=== PATIENT | female | born 1950 | race Caucasian/White ===

== ENCOUNTER 2016-11-22 | Outpatient (CLI) | payer MEDICARE, OTHER | END 2016-11-22 23:49 | disposition critical access hospital (66) | DX: R41.82 Altered mental status, unspecified (principal) | CPT/HCPCS: A0425; A0429 ==

== ENCOUNTER 2016-11-22 23:59 | Emergency (ER) | payer MEDICARE, OTHER | END 2016-11-23 07:01 | disposition home or self-care (01) | DX: R41.82 Altered mental status, unspecified (principal); D64.9 Anemia, unspecified; E83.119 Hemochromatosis, unspecified; R45.1 Restlessness and agitation; F41.9 Anxiety disorder, unspecified; I11.0 Hypertensive heart disease with heart failure; I50.9 Heart failure, unspecified; E11.9 Type 2 diabetes mellitus without complications; I69.351 Hemiplegia and hemiparesis following cerebral infarction affecting right dominant side; I69.392 Facial weakness following cerebral infarction; F17.200 Nicotine dependence, unspecified, uncomplicated; Z95.0 Presence of cardiac pacemaker; Z79.82 Long term (current) use of aspirin | CPT/HCPCS: 36415; 70450; 80048; 80306; 81003; 85025; 99284; G0480 ==

== ENCOUNTER 2017-03-25 17:28 | Outpatient (CLI) | payer MEDICARE, OTHER ==
--- NOTE | 2017-03-25 18:39 | XRAY Preliminary Report ---
Exam: XR Elbow 3 View RT IMPRESSION: 1. Posterior elbow soft tissue contusion. 2. Limited as above. No acute fractures are seen. [facility] The call report notification system was initiated by Dr. Reina Will at 18:31 hrs on 03/25/17. The above findings were discussed with provider Sherlyn Sims by Dr. Reina Will at 18:38 hrs on 03/25/17. SITE ID: [id number]
--- NOTE | 2017-03-25 18:42 | XRAY Report ---
EXAM: RIGHT ELBOW RADIOGRAPHY EXAM DATE: 03/25/2017 06:04 PM. CLINICAL HISTORY: Right ELBOW CONTUSION. Fall. Patient's arm does not extend out of fixed flexed position. COMPARISON: None. TECHNIQUE: 3 views. FINDINGS: Limited by nonstandard views due to fixed flexed position at the elbow. Bones: No acute fractures are seen. Joints: No evidence for dislocation or effusion. Soft Tissues: Posterior elbow soft tissue contusion. IMPRESSION: 1. Posterior elbow soft tissue contusion. 2. Limited as above. No acute fractures are seen. [facility] The call report notification system was initiated by Dr. Reina Will at 18:31 hrs on 03/25/17. The above findings were discussed with provider Sherlyn Sims by Dr. Reina Will at 18:38 hrs on 03/25/17. Referring Provider Line: [phone] SITE ID: [id number]
== END 2017-03-25 17:29 | disposition home or self-care (01) ==
LOC: DI 17:28
PROVIDERS: ATTEND Physician Assistant
DX: S50.01XA Contusion of right elbow, initial encounter (principal)

== ENCOUNTER 2017-04-11 08:00 | Outpatient (CLI) | payer MEDICARE, OTHER ==
[2017-04-11 15:10] LABS: HEMOGLOBIN A1C 0.63 g/dL
== END 2017-04-11 08:01 | disposition home or self-care (01) ==
LOC: LAB.R 08:00
PROVIDERS: ATTEND Family Medicine
DX: E83.110 Hereditary hemochromatosis (principal); E11.65 Type 2 diabetes mellitus with hyperglycemia; E03.9 Hypothyroidism, unspecified
CPT/HCPCS: 83036; 84443

== ENCOUNTER 2017-04-13 17:51 | Outpatient (CLI) | payer MEDICARE, OTHER ==
--- NOTE | 2017-04-13 19:44 | Ultrasound Preliminary Report ---
Exam: US Duplex Ext Veins Left IMPRESSION: No evidence for deep venous thrombosis. [facility] SITE ID: [id number]
--- NOTE | 2017-04-13 19:46 | Ultrasound Report ---
EXAM: LEFT LOWER EXTREMITY VENOUS ULTRASOUND EXAM DATE: 04/13/2017 07:23 PM. CLINICAL HISTORY: Lower extremity edema. Hereditary hemochromatosis. COMPARISON: None. TECHNIQUE: Real-time sonographic vascular imaging was performed by the geoscience laboratory technician through the lower extremity utilizing both color-flow and Doppler spectral analysis. Multiple aircraft sales representative static david ges were saved for review. FINDINGS: Common Femoral Vein (CFV): Normal. CFV-GSV Junction: Normal. Profunda Femoral Vein (PFV): Normal. Femoral Vein (FV) Prox: Normal. Femoral Vein (FV) Mid: Normal. Femoral Vein (FV) Dist: Normal. Popliteal Vein: Normal. Posterior Tibial Veins: Normal. Peroneal Veins: Normal. Other: None. IMPRESSION: No evidence for deep venous thrombosis. [facility] Referring Provider Line: [phone] SITE ID: [id number]
== END 2017-04-13 17:52 | disposition home or self-care (01) ==
LOC: DI 17:51
PROVIDERS: ATTEND Specialist
DX: E83.110 Hereditary hemochromatosis (principal); R60.0 Localized edema

== ENCOUNTER 2017-05-19 16:57 | Outpatient (CLI) | payer MEDICARE, OTHER | END 2017-05-19 16:58 | disposition critical access hospital (66) | LOC: EMS 16:57 | PROVIDERS: ATTEND Surgery | DX: T50.901A Poisoning by unspecified drugs, medicaments and biological substances, accidental (unintentional), initial encounter (principal) | CPT/HCPCS: A0425; A0429 ==

== ENCOUNTER 2017-05-19 17:10 | Inpatient (IN) | payer MEDICARE, OTHER ==
--- NOTE | 2017-05-19 17:29 | ED Physician Documentation ---
PD HPI DYSPNEA - Stated complaint Stated Complaint: poss OD - Chief complaint Chief Complaint: General - History obtained from History obtained from: Patient, EMS - History of Present Illness Timing - onset: How many days ago (several days of dyspnea, cough, and then today was with confusion about medications. EMS found her initial sats at 85%. She does not use oxygen at home.) Timing - onset during: Light activity Timing - duration: Days Timing - details: Gradual onset, Still present Inciting event(s): URI (cough and some congestion) Improved by: Rest, Sitting up Worsened by: Exertion, Coughing Associated symptoms: Fever (subjective), Cough, Wheezing, Bilateral edema (both legs, with redness of right lower leg anteriorly and right upper arm skin redness as well.). No: Chest pain / discomfort Similar symptoms before: Diagnosis (pneumonia, and has had leg cellulitis in the past.) Recently seen: Not recently seen Review of Systems Constitutional: reports: Fever (subjective for 2 days), Chills, Myalgias Nose: reports: Congestion. denies: Rhinorrhea / runny nose Throat: denies: Sore throat Cardiac: denies: Chest pain / pressure Respiratory: reports: Dyspnea, Cough, Wheezing GI: reports: Nausea. denies: Abdominal Pain, Vomiting, Diarrhea : denies: Dysuria, Frequency Skin: reports: Rash (redness with blisters right lower leg.) Musculoskeletal: denies: Neck pain, Back pain Neurologic: reports: Generalized weakness, Confused. denies: Focal weakness, Numbness, Near syncope, Headache, Head injury Endocrine: reports: Easy bruising / bleeding. denies: Weight gain Immunocompromised: denies: Immunocompromised PD PAST MEDICAL HISTORY - Past Medical History Cardiovascular: Congestive heart failure, Hypertension, Arrhythmia, Other Respiratory: None Neuro: CVA Endocrine/Autoimmune: Type 2 diabetes GI: GERD, Hiatal hernia : None HEENT: Chronic hearing loss Psych: Depression, Anxiety, Obsessive compulsive disorder Musculoskeletal: Other Derm: Eczema - Past Surgical History Past Surgical History: Yes General: Cholecystectomy, Appendectomy /STORE HAND: Hysterectomy, Oophrectomy Cardiovascular: Pacemaker - Present Medications Home Medications: Ambulatory Orders Medication Instructions Recorded Confirmed Ibuprofen [Motrin] 800 mg PO Q8H PRN 01/30/13 05/19/17 Levothyroxine Sodium [Synthroid] 75 mcg PO DAILY 01/30/13 05/19/17 Citalopram [CeleXA] 20 mg PO DAILY 10/30/14 05/19/17 Simvastatin [Zocor] 5 mg PO DAILY 10/30/14 05/19/17 oxyCODONE [Roxicodone] 20 mg PO Q4H 01/19/15 05/19/17 Lisinopril 10 mg PO DAILY 06/28/15 05/19/17 Baclofen 20 mg PO QID PRN 11/23/16 05/19/17 Furosemide [Lasix] 40 mg PO DAILY 11/23/16 05/19/17 Oxybutynin [Ditropan] 5 mg PO BID 11/23/16 05/19/17 Potassium Chloride [Klor-Con M20] 20 meq PO DAILY 11/23/16 05/19/17 Chlorpheniramine Maleate [Chlor 4 mg PO QID PRN 05/19/17 05/19/17 Hist] Dextroamphetamine/Amphetamine 30 mg ORAL BID 05/19/17 05/19/17 [Dextroamp-Amphetamin 30 mg Tab] Docusate Sodium 100 mg PO DAILY 05/19/17 05/19/17 diphenhydrAMINE [Benadryl] 25 mg PO QID PRN 05/19/17 05/19/17 - Allergies Allergies/Adverse Reactions: Allergies Allergy/AdvReac Type Severity Reaction Status Date / Time erythromycin lactobionate * Allergy Intermediate Emesis Verified 11/23/16 00:11 [From Erythrocin] imipramine HCl * Allergy Unknown bronchospas Verified 11/23/16 00:11 [From Tofranil] ms metformin Allergy Unknown emesis, Verified 11/23/16 00:11 dyspepsia nitrofurantoin Allergy Unknown nausea, Verified 11/23/16 00:11 [Nitrofurantoin] weakness, malaise Sulfa (Sulfonamide Allergy Unknown urticaria Verified 11/23/16 00:11 Antibiotics) - Social History Does the pt smoke?: No Smoking Status: Current some day smoker Does the pt drink ETOH?: No Does the pt have substance abuse?: No - Immunizations Immunizations are current?: Yes - POLST Patient has POLST: No PD ED PE NORMAL - Vitals Vital signs reviewed: Yes - General General: Alert and oriented X 3 (but some confused on what medications she is taking and feels that her meds are wrong, but pills in med pack correlate with what she should be on. ), No acute distress, Well developed/nourished - HEENT HEENT: Ears normal, Moist mucous membranes, Pharynx benign - Neck Neck: Supple, no meningeal sign, No adenopathy - Cardiac Cardiac: RRR, No murmur - Respiratory Respiratory: No: Clear bilaterally (coarse sounds left base, diffuse wheezes noted. Mild work of breathing. ) - Abdomen Abdomen: Soft, Non tender - Back Back: No CVA TTP - Derm Derm: Normal color, Warm and dry - Extremities Extremities: No deformity, Normal ROM s pain, No calf tenderness / cord, Other ( 1+ edema in legs, with redness right lower leg anteriorly and also some right upper arm without fluctuance. Swab obtained for culture. ) - Neuro Neuro: Alert and oriented X 3, No motor deficit, Normal speech Results - Vitals Vitals: Vital Signs - 24 hr 05/19/17 05/19/17 17:11 18:25 Temperature 37.1 C Heart Rate 93 97 Respiratory 16 16 Rate Blood Pressure 138/64 H O2 Saturation 97 Oxygen O2 Source [With Activity] Room air O2 Source Nasal cannula Oxygen Flow Rate 3 - Labs Labs: Laboratory Tests 05/19/17 05/19/17 05/19/17 18:30 18:30 18:30 WBC 12.8 H RBC 3.56 L Hgb 11.3 L Hct 33.2 L MCV 93.2 MCH 31.8 H MCHC 34.1 RDW 14.1 Plt Count 145 MPV 10.1 Neut # 9.7 H Lymph # 1.6 [place] # 1.4 H Eos # 0.0 Baso # 0.0 Absolute Nucleated RBC 0.02 Nucleated RBCs 0.2 Sodium 133 L Potassium 3.8 Chloride 95 L Carbon Dioxide 30 Anion Gap 8.0 BUN 16 Creatinine 0.8 Estimated GFR (MDRD) 72 L Glucose 217 H Glycated Hemoglobin Estim Average Glucose Lactic Acid Calcium 8.5 Magnesium 1.8 Total Bilirubin 0.9 AST 42 ALT 30 Alkaline Phosphatase 116 B-Natriuretic Peptide 87 Total Protein 6.4 L Albumin 3.1 L Globulin 3.3 Albumin/Globulin Ratio 0.9 L Lipase 17 L 05/19/17 05/19/17 18:30 18:30 WBC RBC Hgb Hct MCV MCH MCHC RDW Plt Count MPV Neut # Lymph # [place] # Eos # Baso # Absolute Nucleated RBC Nucleated RBCs Sodium Potassium Chloride Carbon Dioxide Anion Gap BUN Creatinine Estimated GFR (MDRD) Glucose Glycated Hemoglobin 6.6 H Estim Average Glucose 143 H Lactic Acid 1.9 Calcium Magnesium Total Bilirubin AST ALT Alkaline Phosphatase B-Natriuretic Peptide Total Protein Albumin Globulin Albumin/Globulin Ratio Lipase - Rads (name of study) chest Radiology: Prelim report reviewed (LLL infiltrate c/w pneumonia.) PD MEDICAL DECISION MAKING - ED course Complexity details: reviewed results, re-evaluated patient (improved breathing and sounds with neb treatment. Less confused seeming. ), considered differential , d/w patient Departure - Departure Disposition: [facility] DC/Xfer Clinical Impression: Hypoxia Dyspnea Qualifiers: Dyspnea type: shortness of breath Qualified Code(s): R06.02 - Shortness of breath Pneumonia Qualifiers: Pneumonia type: due to unspecified organism Laterality: left Lung location: lower lobe of lung Qualified Code(s): J18.1 - Lobar pneumonia, unspecified organism Cellulitis of leg Qualifiers: Laterality: right Qualified Code(s): L03.115 - Cellulitis of right lower limb Condition: Stable Record reviewed to determine appropriate education?: Yes Discharge Date/Time: 05/19/17 21:25
[2017-05-19] MEDS ORDERED: IPRATROPIUM/ALBUTEROL 3 ML NEB INH STA (18:12)
[2017-05-19] MEDS ORDERED: SODIUM CHLORIDE FLUSH 0.9% 10 ML SYRINGE IVP ONE ×3 (18:24→21:58)
[2017-05-19] MEDS ORDERED: IPRATROPIUM/ALBUTEROL 3 ML NEB INH ONE (18:25)
[2017-05-19 18:50] LABS: BASOPHILS % (AUTO) 0.4 %; EOSINOPHILS % (AUTO) 0.2 %; HCT - HEMATOCRIT 33.2 % (37.0-47.0); HGB - HEMOGLOBIN 11.3 g/dL (12.0-16.0); LYMPHOCYTES # (AUTO) 1.6 10^3/uL (1.5-3.5); LYMPHOCYTES % (AUTO) 12.7 %; MEAN CORPUSCULAR HEMOGLOBIN 31.8 pg (27.0-31.0); MEAN CORPUSCULAR HGB CONC 34.1 g/dL (32.0-36.0); MEAN CORPUSCULAR VOLUME 93.2 fL (81.0-99.0); MEAN PLATELET VOLUME 10.1 fL (7.9-10.8); MONOCYTES # (AUTO) 1.4 10^3/uL (0.0-1.0); MONOCYTES % (AUTO) 10.7 %; NEUTROPHILS # (AUTO) 9.7 10^3/uL (1.5-6.6); NUCLEATED RED BLOOD CELLS AUTO 0.2 /100WBC; RED BLOOD COUNT 3.56 10^6/uL (4.20-5.40); RED CELL DISTRIBUTION WIDTH 14.1 % (12.0-15.0); UNCORRECTED WHITE BLOOD COUNT 12.8 x10^3/uL; WHITE BLOOD COUNT 12.8 x10^3/uL (4.8-10.8)
[2017-05-19 18:53] LABS: ALBUMIN/GLOBULIN RATIO 0.9 (1.0-2.2); BILIRUBIN,TOTAL 0.9 mg/dL (0.2-1.0); CALCIUM 8.5 mg/dL (8.5-10.3); CREATININE 0.8 mg/dL (0.4-1.0); MAGNESIUM 1.8 mg/dL (1.7-2.8); POTASSIUM 3.8 mmol/L (3.5-5.0); TOTAL PROTEIN 6.4 g/dL (6.7-8.2)
[2017-05-19] MEDS ORDERED: cefTRIAXone 1 GM in SODIUM CHLORIDE 0.9% MINIBAG 100 ML IV STA (19:11)
[2017-05-19] MEDS ORDERED: AZITHROMYCIN INJ 500 MG in SODIUM CHLORIDE 0.9% 250 ML IV STA (19:11)
[2017-05-19] MEDS ORDERED: cefTRIAXone 1 GM VIAL ONE (19:26)
--- NOTE | 2017-05-19 20:10 | XRAY Preliminary Report ---
Exam: XR Chest 2 View PA/LAT IMPRESSION: 1. Focal airspace consolidation within left lower lobe suspicious for pneumonia. 2. Indeterminate pulmonary nodule right lung base measuring 6 mm. [facility] SITE ID: [id number]
--- NOTE | 2017-05-19 20:12 | XRAY Report ---
EXAM: CHEST RADIOGRAPHY EXAM DATE: 05/19/2017 07:06 PM. CLINICAL HISTORY: Cough and dyspnea. COMPARISON: Chest x-ray 02/27/2016. TECHNIQUE: 2 views. FINDINGS: Lungs/Pleura: No pleural effusion or pneumothorax. Focal airspace consolidation within the left lower lobe. Nodular density right lung base measuring 6 mm. Mediastinum: Normal heart size with right-sided Port-A-Cath and left-sided dual-lead pacemaker. Other: None. IMPRESSION: 1. Focal airspace consolidation within left lower lobe suspicious for pneumonia. 2. Indeterminate pulmonary nodule right lung base measuring 6 mm. [facility] Referring Provider Line: [phone] SITE ID: [id number]
[2017-05-19] MEDS ORDERED: ALBUTEROL NEB 2.5 MG/3 ML INH STA (20:22)
[2017-05-19] MEDS ORDERED: ACETAMINOPHEN 325 MG TABLET PO PRN (20:32)
[2017-05-19] MEDS ORDERED: diphenhydrAMINE 25 MG CAPSULE PO PRN (20:41)
[2017-05-19] MEDS ORDERED: IBUPROFEN 800 MG TABLET PO PRN (20:41)
[2017-05-19] MEDS: IPRATROPIUM/ALBUTEROL 3 ML NEB INH SCH (21:30)
[2017-05-19] MEDS ORDERED: VANCOMYCIN INJ 1 GM in SODIUM CHLORIDE 0.9% 250 ML IV SCH (22:00)
[2017-05-19] MEDS ORDERED: VANCOMYCIN PER PHARMACY 1 GM in SODIUM CHLORIDE 0.9% 250 ML IV SCH (22:00)
[2017-05-19] MEDS: SODIUM CHLORIDE FLUSH 0.9% 10 ML SYRINGE IVP SCH (22:05)
[2017-05-19] MEDS: PANTOPRAZOLE 40 MG VIAL IVP SCH (22:05)
[2017-05-19] MEDS: SODIUM CHLORIDE 0.9% 1,000 ML IV SCH (22:05)
[2017-05-19 22:17] LABS: HEMOGLOBIN A1C 0.58 g/dL
[2017-05-19] MEDS: OXYBUTYNIN 5MG TABLET PO SCH (22:19)
[2017-05-19 22:39] LABS: BILIRUBIN,URINE NEGATIVE (NEGATIVE)
[2017-05-19 22:48] LABS: UR CULTURE IF IND NOT INDICATED
--- NOTE | 2017-05-19 23:40 | HISTORY & PHYSICAL EXAMINATION ---
cellulitisDATE OF ADMISSION: 05/19/2017 PRIMARY CARE PHYSICIAN: Juan Stern MD CHIEF COMPLAINT: Cough, shortness of breath. IDENTIFYING INFORMATION: The patient is the primary source of history. The patient has some challenge s with her expressive aphasia but appears to converse well enough for most information and appears co gent, consistent, and fairly thorough. The patient's history is supplemented by the handoff from Dr. Aguirre, the emergency department physician, as well as personal review of past medical records and d kandis collected during this visit, which will be summarized subsequently. All were used in addition to her examination and interview in the evaluation of this person and preparation of this document. HISTORY OF PRESENT ILLNESS: The patient says for the last several days, she has had a cough, got more and more short of breath, got to the point where she feels that if she goes to sleep, she is going t o . The patient has also had some difficulty in managing her pills and says that her pills are not the same as usual (this has been investigated by the emergency department staff, and she has the pil ls that she is supposed to get at appropriate times). The patient states the cough is at times produc tive. The patient was noted on exam by this physician to have problems with redness and swelling in h er leg and her arm and 2 abrasions from a previous fall, which the patient initially denied there was any problem, and then stated that, yes, she had soreness in her arm/elbow region, which is contracte d from her previous stroke, but not her leg. It was pointed out to her the right leg was much redder than the left leg, especially across the anterior and lateral tibial-fibular surface. REVIEW OF SYSTEMS: She denies any fever, chills, sweats. She has had decreased appetite, constipation , and problems urinating in the last couple of days. The rest of the complete review of systems is ne gative except as noted above in the History of Present Illness and the Review of Systems. PAST MEDICAL HISTORY Remarkable for: 1. Congestive heart failure. 2. Hypertension. 3. Arrhythmia. 4. CVA. 5. Type 2 diabetes, diet controlled at this point because she has lost a lot of weight, from 210 to 1 10 pounds. 6. GERD. 7. Hiatal hernia. 8. Chronic hearing loss. 9. Depression. 10. Anxiety. 11. Obsessive compulsive disorder. 12. Eczema. 13. Hemochromatosis. SURGICAL HISTORY She has had: 1. Cholecystectomy. 2. Appendectomy. 3. Hysterectomy. 4. Oophorectomy. 5. Pacemaker. 6. She has also had a port put in. 7. Josue-en-Y procedure for the hemochromatosis. 8. Foot surgery, left foot twice. LIST OF MEDICATIONS Includes: 1. Ibuprofen 800 mg q.8 hours. 2. Levoxyl 75 mcg a day. 3. Celexa 20 mg a day. 4. Simvastatin 5 mg a day. 5. Oxycodone 20 mg every 4 hours. 6. Lisinopril 10 mg a day. 7. Baclofen 20 mg q.i.d. 8. Lasix 40 mg a day. 9. Oxybutynin 5 mg twice a day. 10. Potassium chloride 20 mEq daily. 11. Chlorpheniramine 4 mg 3-4 times a day. 12. Dextroamphetamine/amphetamine 30 mg twice a day. 13. DSS 100 mg a day. 14. Benadryl 25 mg q.i.d. p.r.n. ALLERGIES 1. ERYTHROMYCIN. 2. IMIPRAMINE. 3. METFORMIN. 4. NITROFURANTOIN. 5. SULFA. PERSONAL AND SOCIAL HISTORY: The patient was born in [facility], moved away to [facility] after high school got . 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 The patient smoked half a pack a day until 2 y ears ago, and then she started a couple days ago, which she admits was not smart. The patient does no t drink alcohol or use any illicit drugs. FAMILY HISTORY: Positive for brother with hemochromatosis, daughter has hemochromatosis, uncle has he mochromatosis. Mother had diabetes and breast cancer. An aunt with diabetes, a stroke, and breast can cer. PHYSICAL EXAMINATION GENERAL: A frail-appearing woman, older than stated age, who is on oxygen; has the contractures of th e right arm and hand, as well as the expressive aphasia. HEENT: Eyes EOM within normal limits, PERRL, anicteric. Mouth and throat with an upper plate in place . NECK: No lymphadenopathy, no thyromegaly, no bruits JVD. CHEST WALL: Nontender. Symmetric. No breast exam done. HEART: Sinus rhythm. No murmur, rubs, or clicks. ABDOMEN: Soft, nontender, normal bowel sounds. No hepatosplenomegaly appreciated. RECTAL/GENITAL: Exam is not done. EXTREMITIES: The patient has an abrasion, lateral posterior portion of the distal humerus, has had so me erythema and swelling of the right forearm; she also has a crescent eschar from a previous fall ar ound the lateral aspect of her patella and distally has erythema confluence with edema. She has signi ficant muscle loss of both lower extremities. NEUROLOGICAL: Cranial nerves intact as tested. Motor: She has disability of profound weakness of the right upper extremity and lesser extent the right lower extremity. The patient's cognition is fair. SKIN: She has the eschars as noted. She has the erythema as noted above. LABORATORY DATA UA is pending. White count 12.8, with 11 and 33 hemoglobin and hematocrit, platelets are 145. Sodium 133, potassium 3.8, chloride 95, CO2 of 30, BUN 16, creatinine 0.8. She had a glucose of 217. Calcium is 8.5, magnesium 1.8. Normal liver enzymes. Albumin is 3.1. IMAGING: Chest x-ray shows an infiltrate in the left lung. SUMMARY: This is a 66-year-old female suffers from multiple medical illnesses as diverse as previous stroke, hyperlipidemia, hypertension, cardiac arrhythmia, hemochromatosis, pacemaker, and port, prese nts with a cough of several days' duration and increasing shortness of breath. The patient comes in t o the emergency department for evaluation and is found to be hypoxic with an O2 saturation of 85 on r oom air and improved with supplemental oxygen. She is also found to have pneumonia and cellulitis acu tely. Therefore needs admission. DIAGNOSES 1. Acute respiratory failure. 2. Pneumonia. 3. Right arm and right leg cellulitis. 4. Hemochromatosis. 5. Diabetes type 2, diet control only. 6. Hypertension. 7. Hypothyroidism. 8. Anxiety/depression. 9. Obsessive compulsive disorder. 10. Attention deficit hyperactivity disorder. 11. Chronic pain. DISCUSSION AND DECISION MAKING This is a patient with acute respiratory failure, probably untreated COPD as a cause, as well as pneu monia, is admitted for treatment with antibiotics, oxygen supplementation, and beta-agonist. Cellulitis, which has undetermined etiology though likely secondary to abrasions from falls, is unusu al with a presentation of both the arm and leg from separate sources; will be treated with the Levaqu in and add vancomycin, given sores could have an abscess component. The patient therefore needs to be treated for a MRSA as well as staph. Hemochromatosis. No immediate treatment. Diabetes. Patient will have a sliding scale instituted, carb-controlled diet, and A1c completed. Hypertension will be treated with her usual medications, the same with the hypothyroidism. Anxiety/depression. She will be continued on her Celexa; also for her OCD. ADHD will be treated with her usual amphetamine. The chronic pain at this point will be treated with her oxycodone, though this short-acting appears t o be a poor choice for chronic pain after hospitalization and for the half-way. HOSPITAL ISSUES 1. CODE STATUS: Discussed with her, and she does want to have CPR; does not want to have life prolong ed if she has a poor prognosis. 2. VTE prophylaxis, which will be with Lovenox. 3. Diet will be carb-controlled as noted above. 4. Activity will be as tolerated. Suggest a physical therapy evaluation, though she is probably at [facility] [place], there may be some deterioration with deconditioning, as she has limited motor function from h er stroke. 5. Tubes and lines will be IV only at this time; may need a Penny catheter. She already has a port fo r access. 6. Hospital status, which, given the respiratory failure and pneumonia alone, will require at least 2 nights of treatment, further diagnostics if needed, and their comorbidities represent challenging me dical issues requiring inpatient status. 7. Estimated length of stay is 3 nights. 8. Disposition will be expected to be home but may need to be at a higher level of care. Case management will be involved in collaborating with the patient and family for the safest disposit ion. JOB #: [id number] EXT JOB #:[id number]
[2017-05-19] MEDS: oxyCODONE 5 MG TABLET PO SCH (23:53)
[2017-05-20] MEDS ORDERED: SODIUM CHLORIDE 0.9% 250 ML IV ONE (02:08)
[2017-05-20] MEDS: VANCOMYCIN INJ 1 GM in SODIUM CHLORIDE 0.9% 250 ML IV SCH ×2 (02:10→20:00)
[2017-05-20] MEDS: oxyCODONE 5 MG TABLET PO SCH ×2 (04:04→06:42)
[2017-05-20] MEDS: SODIUM CHLORIDE FLUSH 0.9% 10 ML SYRINGE IVP SCH ×3 (05:50→20:40)
[2017-05-20 06:00] LABS: BASOPHILS # (AUTO) 0.1 10^3/uL (0.0-0.1); BASOPHILS % (AUTO) 0.5 %; EOSINOPHILS # (AUTO) 0.1 10^3/uL (0.0-0.7); EOSINOPHILS % (AUTO) 0.6 %; HCT - HEMATOCRIT 31.7 % (37.0-47.0); HGB - HEMOGLOBIN 10.6 g/dL (12.0-16.0); MEAN CORPUSCULAR HEMOGLOBIN 31.7 pg (27.0-31.0); MEAN CORPUSCULAR HGB CONC 33.6 g/dL (32.0-36.0); MEAN CORPUSCULAR VOLUME 94.4 fL (81.0-99.0); MEAN PLATELET VOLUME 9.9 fL (7.9-10.8); MONOCYTES # (AUTO) 1.3 10^3/uL (0.0-1.0); MONOCYTES % (AUTO) 13.1 %; NEUTROPHILS # (AUTO) 6.2 10^3/uL (1.5-6.6); NEUTROPHILS % (AUTO) 64.8 %; RED BLOOD COUNT 3.36 10^6/uL (4.20-5.40); RED CELL DISTRIBUTION WIDTH 14.1 % (12.0-15.0); UNCORRECTED WHITE BLOOD COUNT 9.6 x10^3/uL; WHITE BLOOD COUNT 9.6 x10^3/uL (4.8-10.8)
[2017-05-20 06:12] LABS: CALCIUM 8.3 mg/dL (8.5-10.3); CREATININE 0.8 mg/dL (0.4-1.0); POTASSIUM 4.5 mmol/L (3.5-5.0)
[2017-05-20] MEDS: PANTOPRAZOLE 40 MG VIAL IVP SCH ×2 (06:42→16:31)
[2017-05-20] MEDS: SODIUM CHLORIDE FLUSH 0.9% 10 ML SYRINGE IVP PRN ×2 (06:43→16:31)
[2017-05-20] MEDS: IPRATROPIUM/ALBUTEROL 3 ML NEB INH SCH ×3 (08:00→20:55)
[2017-05-20] MEDS ORDERED: SIMVASTATIN 5 MG PO SCH (09:00)
[2017-05-20] MEDS: LISINOPRIL 5 MG TABLET PO SCH (09:04)
[2017-05-20] MEDS: SACCHAROMYCES BOULARDII 250 MG CAPSULE PO SCH ×2 (09:05→16:32)
[2017-05-20] MEDS: POTASSIUM CHLORIDE 20 MEQ TABLET PO SCH (09:06)
[2017-05-20] MEDS: DOCUSATE SODIUM 100 MG CAPSULE PO SCH (09:06)
[2017-05-20] MEDS: LEVOTHYROXINE 75 MCG TABLET PO SCH (09:06)
[2017-05-20] MEDS: CITALOPRAM 10 MG TABLET PO SCH (09:11)
[2017-05-20] MEDS: ENOXAPARIN 40 MG/0.4 ML SYRINGE SUBQ SCH (09:12)
[2017-05-20] MEDS: FUROSEMIDE 20 MG TABLET PO SCH (09:13)
[2017-05-20] MEDS: POLYETHYLENE GLYCOL 3350 17 GM PACKET PO SCH (09:13)
[2017-05-20] MEDS: OXYBUTYNIN 5MG TABLET PO SCH ×2 (09:15→20:39)
[2017-05-20] MEDS: oxyCODONE 5 MG TABLET PO PRN ×2 (11:30→20:38)
[2017-05-20] MEDS: INSULIN ASPART 300 UNIT/3 ML PEN SUBQ SCH ×4 (12:15→21:00)
--- NOTE | 2017-05-20 14:35 | PROVIDER PROGRESS NOTE ---
Subjective - Prog Note Date Prog Note Date: 05/20/17 - Subjective Pt reports feeling: Improved Subjective: pt report her breathing is much more better, denies fever, chill, chest pain Current Medications - Current Medications Current Medications: Active Medications Acetaminophen (Tylenol) 650 mg PO Q4HR PRN PRN Reason: Pain 1 to 4 Albuterol/Ipratropium (Duoneb) 3 ml INH RTQ6H DEDRICK Atorvastatin Calcium (Lipitor) 10 mg PO QPM DEDRICK Baclofen (Lioresal) 20 mg PO QID PRN PRN Reason: Spasms Citalopram Hydrobromide (Celexa) 20 mg PO DAILY [facility] Last Admin: 05/20/17 09:11 Dose: Not Given Diphenhydramine HCl (Benadryl) 25 mg PO QID PRN PRN Reason: Allergy Symptoms Docusate Sodium (Colace 100mg Capsule) 100 mg PO DAILY [facility] Last Admin: 05/20/17 09:06 Dose: 100 mg Enoxaparin Sodium (Lovenox) 40 mg SUBQ DAILY [facility] Last Admin: 05/20/17 09:12 Dose: 40 mg Furosemide (Lasix) 40 mg PO DAILY [facility] Last Admin: 05/20/17 09:13 Dose: 40 mg Sodium Chloride (Normal Saline 0.9%) 1,000 mls @ 50 mls/hr IV .Q20H [facility] Last Admin: 05/19/17 22:05 Dose: 50 mls/hr Levofloxacin (Levaquin 750 Mg/150 Ml) 150 mls @ 100 mls/hr IV Q24H [facility] Last Admin: 05/20/17 00:16 Dose: 100 mls/hr Vancomycin HCl 1 gm/ Sodium (Chloride) 250 mls @ 167 mls/hr IV Q18H [facility] Last Admin: 05/20/17 02:10 Dose: 167 mls/hr Ibuprofen (Motrin) 800 mg PO Q8H PRN PRN Reason: PAIN &/OR FEVER Insulin Aspart (Novolog) 1 - 9 unit SUBQ 0800,1200,1700,2100 DEDRICK PRN Reason: Protocol Last Admin: 05/20/17 12:29 Dose: Not Given Levothyroxine Sodium (Synthroid) 75 mcg PO DAILY [facility] Last Admin: 05/20/17 09:06 Dose: 75 mcg Lisinopril (Zestril) 10 mg PO DAILY [facility] Last Admin: 05/20/17 09:04 Dose: 10 mg Oxybutynin Chloride (Ditropan) 5 mg PO BID [facility] Last Admin: 05/20/17 09:15 Dose: 5 mg Oxycodone HCl (Roxicodone) 20 mg PO Q4H PRN PRN Reason: PAIN Last Admin: 05/20/17 11:30 Dose: 20 mg Pantoprazole Sodium (Protonix) 40 mg IVP BIDAC [facility] Last Admin: 05/20/17 06:42 Dose: 40 mg (Dextroamphetamine/Amphetamine [ Dextroamp-Amphetamin 30 Mg Tab] 30 Mg) 1 each PO BID [facility] Last Admin: 05/20/17 09:15 Dose: Not Given Polyethylene Glycol (Miralax) 17 gm PO DAILY [facility] Last Admin: 05/20/17 09:13 Dose: 17 gm Potassium Chloride (K-Dur) 20 meq PO DAILY [facility] Last Admin: 05/20/17 09:06 Dose: 20 meq Saccharomyces Boulardii (Florastor) 250 mg PO BIDWM [facility] Last Admin: 05/20/17 09:05 Dose: 250 mg Sodium Chloride (Normal Saline Flush 0.9%) 10 ml IVP PRN PRN PRN Reason: NEEDED PER PROVIDER ORDERS Last Admin: 05/20/17 06:43 Dose: 10 ml Sodium Chloride (Normal Saline Flush 0.9%) 10 ml IVP Q8HR [facility] Last Admin: 05/20/17 05:50 Dose: Not Given Ibuprofen [Motrin] 800 mg PO Q8H PRN 01/30/13 Levothyroxine Sodium [Synthroid] 75 mcg PO DAILY 01/30/13 Citalopram [CeleXA] 20 mg PO DAILY 10/30/14 Simvastatin [Zocor] 5 mg PO DAILY 10/30/14 oxyCODONE [Roxicodone] 20 mg PO Q4H PRN 01/19/15 Lisinopril 10 mg PO DAILY 06/28/15 Baclofen 20 mg PO QID PRN 11/23/16 Furosemide [Lasix] 40 mg PO DAILY 11/23/16 Oxybutynin [Ditropan] 5 mg PO BID 11/23/16 Potassium Chloride [Klor-Con M20] 20 meq PO DAILY 11/23/16 Chlorpheniramine Maleate [Chlor Hist] 4 mg PO QID PRN 05/19/17 Dextroamphetamine/Amphetamine [Dextroamp-Amphetamin 30 mg Tab] 30 mg ORAL BID Docusate Sodium 100 mg PO DAILY 05/19/17 diphenhydrAMINE [Benadryl] 25 mg PO QID PRN 05/19/17 Objective - Vital Signs/Intake & Output Vital Signs: Vital Signs x48h Temp Pulse Pulse Resp BP Pulse Ox 05/20/17 08:06 36.3 C L 72 18 122/47 L 97 05/20/17 08:00 80 20 Intake & Output: Intake & Output 05/17/17 05/18/17 05/19/17 05/20/17 23:59 23:59 23:59 23:59 Intake Total 100 1827 Output Total 950 Balance 100 877 - Objective General Appearance: positive: No acute distress, Alert. negative: Lethargic Eyes Bilateral: positive: Normal inspection, PERRL. negative: No lid inflammation, Conjunctivae nml ENT: positive: ENT inspection nml, Pharynx nml, No signs of dehydration. negative: Purulent nasal drainage, Pharyngeal erythema, Oral lesions Neck: positive: Nml inspection, Thyroid nml, Trachea midline. negative: Lymphadenopathy (R), Lymphadenopathy (L), Stiff neck, Swelling/bruising Respiratory: positive: Chest non-tender, No respiratory distress, Rhonchi (left lower lobe with some rhonchi). negative: Wheezes, Rales Cardiovascular: positive: Regular rate & rhythm, Systolic murmur, Diastolic murmur. negative: Tachycardia, Bradycardia Peripheral Pulses: 2+ Radial (R), 2+ Radial (L), 2+ Dorsalis pedis (R), 2+ Dorsalis pedis (L) Abdomen: positive: Non-tender, Nml bowel sounds, No distention. negative: Tenderness, Guarding, Rebound Back: positive: Nml inspection. negative: CVA tenderness (R), CVA tenderness (L ) Skin: positive: Warm, Dry, Skin rash, Other (left lower extremity with erthema and warm left up extremity with erthema, small swelling and warm) Extremities: positive: Non-tender, Other (left up and lower extremity with limited ROM). negative: Calf tenderness, Mary Alice's sign/cords Neurologic/Psychiatric: positive: Oriented x3, Weakness. negative: Facial droop , Slurred/abnml speech, Depressed mood/affect - Lab Results Fish Bones: 05/20/17 05:30 05/20/17 05:30 Other Labs: Lab Results x24hrs 05/20/17 05/20/17 05/19/17 Range/Units 05:30 05:30 22:00 WBC 9.6 (4.8-10.8) x10^3/uL RBC 3.36 L (4.20-5.40) 10^6/uL Hgb 10.6 L (12.0-16.0) g/dL Hct 31.7 L (37.0-47.0) % MCV 94.4 (81.0-99.0) fL MCH 31.7 H (27.0-31.0) pg MCHC 33.6 (32.0-36.0) g/dL RDW 14.1 (12.0-15.0) % Plt Count 150 (130-450) 10^3/uL MPV 9.9 (7.9-10.8) fL Neut # 6.2 (1.5-6.6) 10^3/uL Lymph # 2.0 (1.5-3.5) 10^3/uL [place] # 1.3 H (0.0-1.0) 10^3/uL Eos # 0.1 (0.0-0.7) 10^3/uL Baso # 0.1 (0.0-0.1) 10^3/uL Absolute Nucleated RBC 0.00 x10^3/uL Nucleated RBCs 0.0 /100WBC Sodium 137 (135-145) mmol/L Potassium 4.5 (3.5-5.0) mmol/L Chloride 101 (101-111) mmol/L Carbon Dioxide 31 (21-32) mmol/L Anion Gap 5.0 L (6-13) BUN 14 (6-20) mg/dL Creatinine 0.8 (0.4-1.0) mg/dL Estimated GFR (MDRD) 72 L (>89) Glucose 170 H (70-100) mg/dL Calcium 8.3 L (8.5-10.3) mg/dL Urine Color YELLOW Urine Clarity CLOUDY (CLEAR) Urine pH 8.0 H (5.0-7.5) PH Ur Specific [place] 1.010 (1.002-1.030) Urine Protein NEGATIVE (NEGATIVE) mg/dL Urine Glucose (UA) NEGATIVE (NEGATIVE) mg/dL Urine Ketones NEGATIVE (NEGATIVE) mg/dL Urine Occult Blood NEGATIVE (NEGATIVE) Urine Nitrite NEGATIVE (NEGATIVE) Urine Bilirubin NEGATIVE (NEGATIVE) Urine Urobilinogen >=8.0 H (NORMAL) E.U./dL Ur Leukocyte Esterase SMALL H (NEGATIVE) Urine RBC 0-5 (0-5) /HPF Urine WBC 6-10 H (0-5) /HPF Ur Squamous Epith Cells MANY Squamous H (<= Few) Urine Bacteria Few (None Seen) /HPF Urine Culture Comments NOT INDICATED Assessment/Plan - Problem List (1) Hypoxia Impression: great improved, now SO97% at 2 liter O2. pt does not have SOB, no respiratory distress now continue Dnoneb, albuterol and RT consult, O2 NC PRN (2) Pneumonia Impression: treated with antibiotics Levaquin and Vanco follow up culture Qualifiers: Pneumonia type: due to unspecified organism Laterality: left Lung location: lower lobe of lung Qualified Code(s): J18.1 - Lobar pneumonia, unspecified organism (3) Cellulitis of leg Impression: continue antibiotics to treat, Qualifiers: Laterality: right Qualified Code(s): L03.115 - Cellulitis of right lower limb (4) Type II diabetes mellitus Impression: slide scale, ACHS, follow up adjusting as needed (5) HTN (hypertension) Impression: stable, resume home meds (6) Hypothyroid Impression: check TSH, follow up, reconciliation of home meds (7) Anxiety Impression: and depression, home meds Celexa (8) Obsessive compulsive disorder Impression: celexa (9) Attention deficit disorder of adult with hyperactivity Impression: home meds amphetamine (10) Chronic pain Impression: oxycodone
[2017-05-20] MEDS ORDERED: SODIUM CHLORIDE 0.9% 500 ML IV ONE (16:45)
[2017-05-20] MEDS: ATORVASTATIN 10 MG TABLET PO SCH (20:38)
[2017-05-20] MEDS: SODIUM CHLORIDE 0.9% 1,000 ML IV SCH (20:39)
[2017-05-20] MEDS: BACLOFEN 10 MG TABLET PO PRN (20:51)
[2017-05-21] MEDS: oxyCODONE 5 MG TABLET PO PRN ×2 (00:41→06:34)
[2017-05-21] MEDS: SODIUM CHLORIDE FLUSH 0.9% 10 ML SYRINGE IVP SCH ×3 (06:35→16:45)
[2017-05-21] MEDS: PANTOPRAZOLE 40 MG VIAL IVP SCH ×2 (06:35→16:45)
[2017-05-21 06:57] LABS: BASOPHILS # (AUTO) 0.1 10^3/uL (0.0-0.1); BASOPHILS % (AUTO) 1.1 %; EOSINOPHILS # (AUTO) 0.1 10^3/uL (0.0-0.7); EOSINOPHILS % (AUTO) 1.7 %; HCT - HEMATOCRIT 32.7 % (37.0-47.0); HGB - HEMOGLOBIN 10.9 g/dL (12.0-16.0); LYMPHOCYTES # (AUTO) 1.3 10^3/uL (1.5-3.5); LYMPHOCYTES % (AUTO) 17.1 %; MEAN CORPUSCULAR HEMOGLOBIN 31.5 pg (27.0-31.0); MEAN CORPUSCULAR HGB CONC 33.4 g/dL (32.0-36.0); MONOCYTES # (AUTO) 0.9 10^3/uL (0.0-1.0); MONOCYTES % (AUTO) 12.3 %; NEUTROPHILS # (AUTO) 5.2 10^3/uL (1.5-6.6); NEUTROPHILS % (AUTO) 67.8 %; NUCLEATED RED BLOOD CELLS AUTO 0.1 /100WBC; RED BLOOD COUNT 3.48 10^6/uL (4.20-5.40); UNCORRECTED WHITE BLOOD COUNT 7.7 x10^3/uL; WHITE BLOOD COUNT 7.7 x10^3/uL (4.8-10.8)
[2017-05-21 07:05] LABS: CALCIUM 8.8 mg/dL (8.5-10.3); CREATININE 0.8 mg/dL (0.4-1.0)
--- NOTE | 2017-05-21 07:55 | XRAY Report ---
EXAM: CHEST RADIOGRAPHY EXAM DATE: 05/21/2017 07:07 AM. CLINICAL HISTORY: Pneumonia. COMPARISON: 05/19/2017. TECHNIQUE: 2 views. FINDINGS: Lungs/Pleura: Lungs are well aerated. No evidence of lobar consolidation or effusion. Mediastinum: There is mild cardiomegaly with thoracic aortic tortuosity. Other: Left subclavian lead pacemaker is in place. There is a right Port-A-Cath. IMPRESSION: 1. Lungs well-expanded. There is cardiomegaly. 2. Interval decrease in opacity within the left lung base. 3. No clearly new areas of airspace disease are seen. 4. No pneumothorax. [facility] Referring Provider Line: [phone] SITE ID: [id number]
--- NOTE | 2017-05-21 08:27 | PROVIDER PROGRESS NOTE ---
Assessment/Plan - Problem List (1) Left upper lobe pneumonia Qualifiers: Pneumonia type: due to unspecified organism Qualified Code(s): J18.1 - Lobar pneumonia, unspecified organism Assessment/Plan: acute and improving. CT shows a upper and lower left sided infiltrate. continue with antibiotic Levaquin IV and respiratory therapy treatments. Steroids IV with taper. 2 liters NC as needed per RT. blood cultures pending. sputum culture recommended. (2) Right lower lobe lung mass Assessment/Plan: acute. patient has a 6mm nodule in the right lower lobe without airspace disease. A CT of chest would be warranted to rule out other process in a patient with history of hypoxia and hemochromatosis. Ct reports impression with report of calcified granuloma right lung and left upper and lower infiltrate. (3) Hemiplegia affecting dominant side, post-stroke Assessment/Plan: ongoing, chronic. continue to work with PT and OT for assessment and assist. fall precautions (4) Attention deficit disorder of adult with hyperactivity Assessment/Plan: chronic. continue on ADD home medications as prescribed. 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 continue with diabetic diet and sliding scale insulin with hemoglobin A1C completed. accuchecks ACHS - Current Meds Current Meds: Current Medications Generic Name Dose Route Start Last Admin Trade Name Freq PRN Reason Stop Dose Admin Albuterol/Ipratropium 3 ml 05/20/17 14:01 05/20/17 20:55 Duoneb INH Not Given RTQ6H DEDRICK Atorvastatin Calcium 10 mg 05/20/17 21:00 05/20/17 20:38 Lipitor PO 10 mg QPM DEDRICK Administration Baclofen 20 mg 05/19/17 20:41 05/20/17 20:51 Lioresal PO 20 mg QID PRN Administration Spasms Citalopram Hydrobromide 20 mg 05/20/17 09:00 05/20/17 09:11 Celexa PO Not Given DAILY DEDRICK Docusate Sodium 100 mg 05/20/17 09:00 05/20/17 09:06 Colace 100mg Capsule PO 100 mg DAILY DEDRICK Administration Enoxaparin Sodium 40 mg 05/20/17 09:00 05/20/17 09:12 Lovenox SUBQ 40 mg DAILY DEDRICK Administration Furosemide 40 mg 05/20/17 09:00 05/20/17 09:13 Lasix PO 40 mg DAILY DEDRICK Administration Sodium Chloride 1,000 mls @ 50 mls/hr 05/19/17 21:00 05/20/17 20:39 Normal Saline 0.9% IV 50 mls/hr .Q20H DEDRICK Administration Levofloxacin 150 mls @ 100 mls/hr 05/20/17 00:00 05/21/17 00:10 Levaquin 750 Mg/150 Ml IV 100 mls/hr Q24H DEDRICK Administration Vancomycin HCl 1 gm/ Sodium 250 mls @ 167 mls/hr 05/20/17 01:30 05/20/17 20:00 Chloride IV 167 mls/hr Q18H DEDRICK Administration Insulin Aspart 1 - 9 unit 05/20/17 08:00 05/20/17 21:00 Novolog SUBQ 1 unit 0800,1200,1700,2100 DEDRICK Administration Protocol Levothyroxine Sodium 75 mcg 05/20/17 09:00 05/20/17 09:06 Synthroid PO 75 mcg DAILY DEDRICK Administration Lisinopril 10 mg 05/20/17 09:00 05/20/17 09:04 Zestril PO 10 mg DAILY DEDRICK Administration Oxybutynin Chloride 5 mg 05/19/17 21:00 05/20/17 20:39 Ditropan PO 5 mg BID DEDRICK Administration Oxycodone HCl 20 mg 05/20/17 10:07 05/21/17 06:34 Roxicodone PO 20 mg Q4H PRN Administration PAIN Pantoprazole Sodium 40 mg 05/19/17 21:00 05/21/17 06:35 Protonix IVP 40 mg BIDAC DEDRICK Administration (Dextroamphetamine/ 1 each 05/20/17 09:00 05/20/17 21:08 Amphetamine [ PO Not Given Dextroamp-Amphetamin BID DEDRICK 30 Mg Tab] 30 Mg) Polyethylene Glycol 17 gm 05/20/17 09:00 05/20/17 09:13 Miralax PO 17 gm DAILY DEDRICK Administration Potassium Chloride 20 meq 05/20/17 09:00 05/20/17 09:06 K-Dur PO 20 meq DAILY DEDRICK Administration Saccharomyces Boulardii 250 mg 05/20/17 08:00 05/20/17 16:32 Florastor PO 250 mg BIDWM DEDRICK Administration Sodium Chloride 10 ml 05/19/17 20:32 05/20/17 16:31 Normal Saline Flush 0.9% IVP 10 ml PRN PRN Administration NEEDED PER PROVIDER ORDERS Sodium Chloride 10 ml 05/19/17 22:00 05/21/17 06:35 Normal Saline Flush 0.9% IVP 40 ml Q8HR DEDRICK Administration - Lab Result Lab results reviewed: Yes Fish Bone Diagrams: 05/21/17 06:45 05/21/17 06:45 Other Lab Results: Abnormal Lab Results 05/19/17 05/19/17 05/19/17 18:30 18:30 18:30 WBC 12.8 x10^3/uL H x10^3/uL (4.8-10.8) RBC 3.56 10^6/uL L 10^6/uL (4.20-5.40) Hgb 11.3 g/dL L g/dL (12.0-16.0) Hct 33.2 % L % (37.0-47.0) MCH 31.8 pg H pg (27.0-31.0) Neut # 9.7 10^3/uL H 10^3/uL (1.5-6.6) Lymph # [place] # 1.4 10^3/uL H 10^3/uL (0.0-1.0) Sodium 133 mmol/L L mmol/L (135-145) Chloride 95 mmol/L L mmol/L (101-111) Anion Gap Estimated GFR (MDRD) 72 L (>89) Glucose 217 mg/dL H mg/dL (70-100) POC Whole Bld Glucose Glycated Hemoglobin 6.6 % H % (4.6-6.2) Estim Average Glucose 143 H (70-100) Calcium Total Protein 6.4 g/dL L g/dL (6.7-8.2) Albumin 3.1 g/dL L g/dL (3.2-5.5) Albumin/Globulin Ratio 0.9 L (1.0-2.2) Lipase 17 U/L L U/L (22-51) Urine pH Urine Urobilinogen Ur Leukocyte Esterase Urine WBC Ur Squamous Epith Cells 05/19/17 05/20/17 05/20/17 22:00 05:30 05:30 WBC RBC 3.36 10^6/uL L 10^6/uL (4.20-5.40) Hgb 10.6 g/dL L g/dL (12.0-16.0) Hct 31.7 % L % (37.0-47.0) MCH 31.7 pg H pg (27.0-31.0) Neut # Lymph # [place] # 1.3 10^3/uL H 10^3/uL (0.0-1.0) Sodium Chloride Anion Gap 5.0 L (6-13) Estimated GFR (MDRD) 72 L (>89) Glucose 170 mg/dL H mg/dL (70-100) POC Whole Bld Glucose Glycated Hemoglobin Estim Average Glucose Calcium 8.3 mg/dL L mg/dL (8.5-10.3) Total Protein Albumin Albumin/Globulin Ratio Lipase Urine pH 8.0 PH H PH (5.0-7.5) Urine Urobilinogen >=8.0 E.U./dL H E.U./dL (NORMAL) Ur Leukocyte Esterase SMALL H (NEGATIVE) Urine WBC 6-10 /HPF H /HPF (0-5) Ur Squamous Epith Cells MANY Squamous H (<= Few) 05/20/17 05/20/17 05/20/17 07:39 12:09 16:30 WBC RBC Hgb Hct MCH Neut # Lymph # [place] # Sodium Chloride Anion Gap Estimated GFR (MDRD) Glucose POC Whole Bld Glucose 118 mg/dL H mg/dL 165 mg/dL H mg/dL 149 mg/dL H mg/dL (70 - 100) (70 - 100) (70 - 100) Glycated Hemoglobin Estim Average Glucose Calcium Total Protein Albumin Albumin/Globulin Ratio Lipase Urine pH Urine Urobilinogen Ur Leukocyte Esterase Urine WBC Ur Squamous Epith Cells 05/20/17 05/21/17 05/21/17 20:36 06:45 06:45 WBC RBC 3.48 10^6/uL L 10^6/uL (4.20-5.40) Hgb 10.9 g/dL L g/dL (12.0-16.0) Hct 32.7 % L % (37.0-47.0) MCH 31.5 pg H pg (27.0-31.0) Neut # Lymph # 1.3 10^3/uL L 10^3/uL (1.5-3.5) [place] # Sodium Chloride 99 mmol/L L mmol/L (101-111) Anion Gap Estimated GFR (MDRD) 72 L (>89) Glucose 102 mg/dL H mg/dL (70-100) POC Whole Bld Glucose 163 mg/dL H mg/dL (70 - 100) Glycated Hemoglobin Estim Average Glucose Calcium Total Protein Albumin Albumin/Globulin Ratio Lipase Urine pH Urine Urobilinogen Ur Leukocyte Esterase Urine WBC Ur Squamous Epith Cells 05/21/17 07:31 WBC RBC Hgb Hct MCH Neut # Lymph # [place] # Sodium Chloride Anion Gap Estimated GFR (MDRD) Glucose POC Whole Bld Glucose 137 mg/dL H mg/dL (70 - 100) Glycated Hemoglobin Estim Average Glucose Calcium Total Protein Albumin Albumin/Globulin Ratio Lipase Urine pH Urine Urobilinogen Ur Leukocyte Esterase Urine WBC Ur Squamous Epith Cells - EKG Results EKG Interpreted Independently: No - Diagnostic Imaging Results Diagnostic Imaging Results: See rad report, Read independently (CT of chest shows left upper and lower lobe pneumonia, no right sided mass) - Additional Planning Condition/Complexity: Stable Consult/Specialty: OT, PT Plan Discussed with:: Patient, Case Management Time Spent: 31-60 minutes Additional Planning Notes: Patient will require another 24-48 hours of inpatient treatment. She is receiving IV antibiotics for Pneumonia and needs additional blood work and PT evaluation. Subjective - Subjective Patient Reports: Resting Comfortably, Fatigue Nursing Reports: Shortness of Breath (short of breath with walking and fatigue. right lower leg with abrasion and erythema but patient states she has had this a long time.) Objective Vital Signs: Vital Signs - 24 hr 05/20/17 05/20/17 05/20/17 15:57 16:37 22:20 Temperature 36.7 C 36.7 C Heart Rate Heart Rate [ 95 74 91 Brachial] Respiratory 16 20 Rate Blood Pressure 103/40 L 98/48 L 112/39 L [Left Brachial artery] O2 Saturation 93 93 05/21/17 05/21/17 05/21/17 02:01 07:30 07:39 Temperature 36.8 C 37.0 C Heart Rate 90 Heart Rate [ 95 90 Brachial] Respiratory 16 18 18 Rate Blood Pressure 108/43 L 142/63 H [Left Brachial artery] O2 Saturation 94 94 Oxygen O2 Source Nasal cannula Oxygen Flow Rate 3 I&O (Last 24 Hrs): Intake and Output Totals x24h 05/19/17 05/20/17 05/21/17 23:59 23:59 23:59 Intake Total 100 2389 Output Total 1200 300 Balance 100 1189 -300 General: Alert, Oriented x3, Cooperative HEENT: PERRLA Neck: Supple, No JVD Lymphatic: no adenopathy Neuro: Alert, Non Focal, CN 2-12 Grossly Intact, Oriented Times 3 Cardiovascular: Normal S1, Normal S2, No murmurs Respiratory: Chest non-tender, No respiratory distress, Rhonchi Abdomen: Normal bowel sounds, Soft, No tenderness, No masses Extremities: No clubbing, No edema, Normal pulses, Other (redness and abrasion to left knee and lower extremity) Skin: No breakdown, No significant lesion - Results Results: Laboratory Results WBC 7.7 x10^3/uL (4.8-10.8) 05/21/17 06:45 RBC 3.48 10^6/uL (4.20-5.40) L 05/21/17 06:45 Hgb 10.9 g/dL (12.0-16.0) L 05/21/17 06:45 Hct 32.7 % (37.0-47.0) L 05/21/17 06:45 MCV 94.0 fL (81.0-99.0) 05/21/17 06:45 MCH 31.5 pg (27.0-31.0) H 05/21/17 06:45 MCHC 33.4 g/dL (32.0-36.0) 05/21/17 06:45 RDW 14.0 % (12.0-15.0) 05/21/17 06:45 Plt Count 169 10^3/uL (130-450) 05/21/17 06:45 MPV 9.0 fL (7.9-10.8) 05/21/17 06:45 Neut # 5.2 10^3/uL (1.5-6.6) 05/21/17 06:45 Lymph # 1.3 10^3/uL (1.5-3.5) L 05/21/17 06:45 [place] # 0.9 10^3/uL (0.0-1.0) 05/21/17 06:45 Eos # 0.1 10^3/uL (0.0-0.7) 05/21/17 06:45 Baso # 0.1 10^3/uL (0.0-0.1) 05/21/17 06:45 Absolute Nucleated RBC 0.00 x10^3/uL 05/21/17 06:45 Nucleated RBCs 0.1 /100WBC 05/21/17 06:45 Sodium 135 mmol/L (135-145) 05/21/17 06:45 Potassium 4.0 mmol/L (3.5-5.0) 05/21/17 06:45 Chloride 99 mmol/L (101-111) L 05/21/17 06:45 Carbon Dioxide 29 mmol/L (21-32) 05/21/17 06:45 Anion Gap 7.0 (6-13) 05/21/17 06:45 BUN 12 mg/dL (6-20) 05/21/17 06:45 Creatinine 0.8 mg/dL (0.4-1.0) 05/21/17 06:45 Estimated GFR (MDRD) 72 (>89) L 05/21/17 06:45 Glucose 102 mg/dL (70-100) H 05/21/17 06:45 POC Whole Bld Glucose 137 mg/dL (70 - 100) H 05/21/17 07:31 Glycated Hemoglobin 6.6 % (4.6-6.2) H 05/19/17 18:30 Estim Average Glucose 143 (70-100) H 05/19/17 18:30 Lactic Acid 1.9 mmol/L (0.5-2.2) 05/19/17 18:30 Calcium 8.8 mg/dL (8.5-10.3) 05/21/17 06:45 Magnesium 1.8 mg/dL (1.7-2.8) 05/19/17 18:30 Total Bilirubin 0.9 mg/dL (0.2-1.0) 05/19/17 18:30 AST 42 IU/L (10-42) 05/19/17 18:30 ALT 30 IU/L (10-60) 05/19/17 18:30 Alkaline Phosphatase 116 IU/L (42-121) 05/19/17 18:30 B-Natriuretic Peptide 87 pg/mL (5-100) 05/19/17 18:30 Total Protein 6.4 g/dL (6.7-8.2) L 05/19/17 18:30 Albumin 3.1 g/dL (3.2-5.5) L 05/19/17 18:30 Globulin 3.3 g/dL (2.1-4.2) 05/19/17 18:30 Albumin/Globulin Ratio 0.9 (1.0-2.2) L 05/19/17 18:30 Lipase 17 U/L (22-51) L 05/19/17 18:30 TSH 1.25 uIU/mL (0.34-5.60) 05/21/17 06:45 Urine Color YELLOW 05/19/17 22:00 Urine Clarity CLOUDY (CLEAR) 05/19/17 22:00 Urine pH 8.0 PH (5.0-7.5) H 05/19/17 22:00 Ur Specific [place] 1.010 (1.002-1.030) 05/19/17 22:00 Urine Protein NEGATIVE mg/dL (NEGATIVE) 05/19/17 22:00 Urine Glucose (UA) NEGATIVE mg/dL (NEGATIVE) 05/19/17 22:00 Urine Ketones NEGATIVE mg/dL (NEGATIVE) 05/19/17 22:00 Urine Occult Blood NEGATIVE (NEGATIVE) 05/19/17 22:00 Urine Nitrite NEGATIVE (NEGATIVE) 05/19/17 22:00 Urine Bilirubin NEGATIVE (NEGATIVE) 05/19/17 22:00 Urine Urobilinogen >=8.0 E.U./dL (NORMAL) H 05/19/17 22:00 Ur Leukocyte Esterase SMALL (NEGATIVE) H 05/19/17 22:00 Urine RBC 0-5 /HPF (0-5) 05/19/17 22:00 Urine WBC 6-10 /HPF (0-5) H 05/19/17 22:00 Ur Squamous Epith Cells MANY Squamous (<= Few) H 05/19/17 22:00 Urine Bacteria Few /HPF (None Seen) 05/19/17 22:00 Urine Culture Comments NOT INDICATED 05/19/17 22:00
[2017-05-21] MEDS: LISINOPRIL 5 MG TABLET PO SCH (08:50)
[2017-05-21] MEDS: POTASSIUM CHLORIDE 20 MEQ TABLET PO SCH (08:50)
[2017-05-21] MEDS: CITALOPRAM 10 MG TABLET PO SCH (08:50)
[2017-05-21] MEDS: SACCHAROMYCES BOULARDII 250 MG CAPSULE PO SCH ×2 (08:51→16:57)
[2017-05-21] MEDS: LEVOTHYROXINE 75 MCG TABLET PO SCH (08:51)
[2017-05-21] MEDS: FUROSEMIDE 20 MG TABLET PO SCH (08:51)
[2017-05-21] MEDS: ENOXAPARIN 40 MG/0.4 ML SYRINGE SUBQ SCH (08:51)
[2017-05-21] MEDS: DOCUSATE SODIUM 100 MG CAPSULE PO SCH (08:51)
[2017-05-21] MEDS: OXYBUTYNIN 5MG TABLET PO SCH ×2 (08:51→21:00)
[2017-05-21] MEDS: POLYETHYLENE GLYCOL 3350 17 GM PACKET PO SCH (08:52)
[2017-05-21] MEDS: INSULIN ASPART 300 UNIT/3 ML PEN SUBQ SCH ×4 (08:59→21:00)
[2017-05-21] MEDS ORDERED: POLYETHYLENE GLYCOL 3350 17 GM PACKET PO SCH (09:00)
[2017-05-21] MEDS: DOCUSATE SODIUM 250 MG CAPSULE PO SCH (09:00)
[2017-05-21] MEDS: SENNA 8.6 MG TABLET PO SCH (09:00)
[2017-05-21] MEDS: BACLOFEN 10 MG TABLET PO PRN ×2 (10:40→14:38)
--- NOTE | 2017-05-21 11:49 | CT Report ---
CT CHEST WITHOUT CONTRAST: 05/21/2017 CLINICAL INDICATION: Left pneumonia, possible right pulmonary nodule on plain film. COMPARISON: Plain films 05/21/2017, 05/19/2017; previous chest CT 11/04/2011. TECHNIQUE: Axial CT images of the chest were obtained without intravenous contrast. FINDINGS: The heart and great vessels demonstrate mild atherosclerotic calcification. Right subclav ketan port and left subclavian pacemaker are stable. Postoperative changes at the gastroesophageal scotty ction are stable, with recurrent hiatal hernia. Left upper and lower lobe infiltrates are present. There is a calcified granuloma in the right lower lobe, accounting for the plain film abnormality. N o suspicious noncalcified pulmonary nodule or mass lesion is seen. No effusion or pneumothorax is pr esent. Osseous structures demonstrate degenerative changes. Limited evaluation of upper abdominal s tructures demonstrates normal adrenal glands. IMPRESSION: LEFT UPPER AND LOWER LOBE INFILTRATES. CALCIFIED GRANULOMA IN THE RIGHT LOWER LOBE, ACC OUNTING FOR THE PLAIN FILM ABNORMALITY. NO SUSPICIOUS PULMONARY NODULE OR MASS LESION IS SEEN. JOB #: [id number] EXT JOB #:[id number]
[2017-05-21] MEDS ORDERED: MAGNESIUM SULFATE 2 GRAM 50 ML IV ONE (12:43)
[2017-05-21] MEDS ORDERED: cefTRIAXone 2 GM in SODIUM CHLORIDE 0.9% MINIBAG 100 ML IV SCH (14:00)
[2017-05-21] MEDS: cefTRIAXone 2 GM in SODIUM CHLORIDE 0.9% MINIBAG 100 ML IV SCH (16:45)
[2017-05-21] MEDS: SODIUM CHLORIDE 0.9% 1,000 ML IV SCH (16:46)
[2017-05-21] MEDS ORDERED: IPRATROPIUM/ALBUTEROL 3 ML NEB INH PRN (20:30)
[2017-05-21] MEDS: IPRATROPIUM/ALBUTEROL 3 ML NEB INH SCH ×2 (20:34→20:35)
[2017-05-21] MEDS: guaiFENesin 600 MG TABLET PO SCH (20:59)
[2017-05-21] MEDS: ATORVASTATIN 10 MG TABLET PO SCH (20:59)
[2017-05-22] MEDS: SODIUM CHLORIDE FLUSH 0.9% 10 ML SYRINGE IVP SCH ×3 (06:18→15:54)
[2017-05-22] MEDS: PANTOPRAZOLE 40 MG VIAL IVP SCH ×2 (06:19→15:54)
[2017-05-22] MEDS: SODIUM CHLORIDE FLUSH 0.9% 10 ML SYRINGE IVP PRN ×4 (06:19→17:01)
[2017-05-22 06:33] LABS: BASOPHILS % (AUTO) 0.4 %; EOSINOPHILS # (AUTO) 0.1 10^3/uL (0.0-0.7); EOSINOPHILS % (AUTO) 2.1 %; HCT - HEMATOCRIT 31.4 % (37.0-47.0); HGB - HEMOGLOBIN 10.5 g/dL (12.0-16.0); LYMPHOCYTES % (AUTO) 21.8 %; MEAN CORPUSCULAR HEMOGLOBIN 31.3 pg (27.0-31.0); MEAN CORPUSCULAR HGB CONC 33.6 g/dL (32.0-36.0); MEAN CORPUSCULAR VOLUME 93.3 fL (81.0-99.0); MEAN PLATELET VOLUME 9.2 fL (7.9-10.8); MONOCYTES # (AUTO) 0.5 10^3/uL (0.0-1.0); MONOCYTES % (AUTO) 10.5 %; NEUTROPHILS # (AUTO) 2.9 10^3/uL (1.5-6.6); NEUTROPHILS % (AUTO) 65.2 %; NUCLEATED RED BLOOD CELLS AUTO 0.1 /100WBC; RED BLOOD COUNT 3.36 10^6/uL (4.20-5.40); RED CELL DISTRIBUTION WIDTH 14.1 % (12.0-15.0); UNCORRECTED WHITE BLOOD COUNT 4.4 x10^3/uL; WHITE BLOOD COUNT 4.4 x10^3/uL (4.8-10.8)
[2017-05-22 06:39] LABS: CALCIUM 8.1 mg/dL (8.5-10.3); CREATININE 0.7 mg/dL (0.4-1.0); POTASSIUM 3.4 mmol/L (3.5-5.0)
[2017-05-22] MEDS: SACCHAROMYCES BOULARDII 250 MG CAPSULE PO SCH ×2 (08:07→17:10)
[2017-05-22] MEDS: LISINOPRIL 5 MG TABLET PO SCH (08:07)
[2017-05-22] MEDS: CITALOPRAM 10 MG TABLET PO SCH (08:07)
[2017-05-22] MEDS: ENOXAPARIN 40 MG/0.4 ML SYRINGE SUBQ SCH (08:07)
[2017-05-22] MEDS: SENNA 8.6 MG TABLET PO SCH (08:07)
[2017-05-22] MEDS: guaiFENesin 600 MG TABLET PO SCH (08:07)
[2017-05-22] MEDS: DOCUSATE SODIUM 100 MG CAPSULE PO SCH (08:07)
[2017-05-22] MEDS: DOCUSATE SODIUM 250 MG CAPSULE PO SCH (08:08)
[2017-05-22] MEDS: OXYBUTYNIN 5MG TABLET PO SCH (08:08)
[2017-05-22] MEDS: INSULIN ASPART 300 UNIT/3 ML PEN SUBQ SCH ×3 (08:09→17:17)
[2017-05-22] MEDS: FUROSEMIDE 20 MG TABLET PO SCH (08:13)
[2017-05-22] MEDS: LEVOTHYROXINE 75 MCG TABLET PO SCH (08:13)
[2017-05-22] MEDS: POLYETHYLENE GLYCOL 3350 17 GM PACKET PO SCH (08:14)
[2017-05-22] MEDS ORDERED: POTASSIUM CHLORIDE 20 MEQ TABLET PO SCH (08:45)
--- NOTE | 2017-05-22 15:50 | Discharge Plan ---
Discharge Plan Disposition: 01 Home, Self Care Condition: Good Prescriptions: Albuterol Sulf [Ventolin Hfa Inhaler] 2 puffs INH Q4HR PRN #1 inhaler PRN Reason: Shortness Of Air/Wheezing Levofloxacin [Levaquin] 500 mg PO DAILY #7 tablet guaiFENesin [Mucinex] 600 mg PO BID #20 tablet Diet: Cardiac Activity Restrictions: Wt Bearing as Tolerated Shower Restrictions: No Driving Restrictions: No Assistance Devices: Walker, Cane Weight Bearing: Full Weight Instruction Topics: Pneumonia Tx, Pneumonia Additional Instructions or Follow Up instructions: 1. Please take all medications as prescribed. You have been given an antibiotic. Please take all the medications as prescribed. Please see your primary care provider for any medication changes. 2. Please continue to eat a cardiac heart healthy diet daily. avoid soda and drink plenty of water during the day 3. Please get plenty of sleep during the day and at night. 4. You need to get plenty of exercise throughout the day, walking with rest breaks are encouraged 5. You need to return to the ER if your symptoms get worse or you have chest pain or shortness of breath. 6. Please see your primary care provider within the first week of discharge No Smoking: If you smoke, Please STOP! Call for help.
[2017-05-22 15:53] VITALS: BP 133/78
[2017-05-22] MEDS: cefTRIAXone 2 GM in SODIUM CHLORIDE 0.9% MINIBAG 100 ML IV SCH (15:53)
--- NOTE | 2017-05-22 16:07 | DISCHARGE SUMMARY ---
"Discharge Summary Admit Date: 05/19/17 Discharge Date: 05/22/17 Discharging Provider: Elmira Everett APRN Primary Care Provider: Javier Vital Code Status: Attempt Resuscitation Condition at Discharge: Good Discharge Disposition: 01 Home, Self Care Discharge Facility Name: home - DIAGNOSES Admission Diagnoses: 1. Acute dyspnea with respiratory failure and probable lobar pneumonia, unspecified organism 2. Chronic hemochromatosis 3. acute hypokalemia from loss 4. Type 2 diabetes mellitus with complications Discharge Diagnoses with Status of Each Condition: 1. Acute hypoxia with respiratory failure secondary to left lobar upper and lower pneumonia, unspecified organism 2. Chronic hemochromatosis 3. Acute hypokalemia from essential loss 4. Type 2 diabetes mellitus with complications - HPI History of Present Illness: History of Present Illness Timing - onset: How many days ago (several days of dyspnea, cough, and then today was with confusion about medications. EMS found her initial sats at 85%. She does not use oxygen at home.) Timing - onset during: Light activity Timing - duration: Days Timing - details: Gradual onset, Still present Inciting event(s): URI (cough and some congestion) Improved by: Rest, Sitting up Worsened by: Exertion, Coughing Associated symptoms: Fever (subjective), Cough, Wheezing, Bilateral edema (both legs, with redness of right lower leg anteriorly and right upper arm skin redness as well.). No: Chest pain / discomfort Similar symptoms before: Diagnosis (pneumonia, and has had leg cellulitis in the past.) Recently seen: Not recently seen - CONSULTS | PROCEDURES Consultations: PT and OT, RT Procedures: CT of chest chest xray - HOSPITAL COURSE Hospital Course: Patient is a 66 year old female who was admitted from the ER with complaint of hypoxia and respiratory failure. She has a history of hemochromatosis, diabetes , CVA, and past respiratory failure with PNA. She lives with her daughter and was admitted for left sided lobar pneumonia. She was started on antibiotic therapy while in the ER and continued as inpatient. She has multiple allergies and was started on Levaquin and vancomycin. She was managed with accuchecks ACHS and sliding scale insulin for diabetes. Hemoglobin A1C was 6.6. She continued on respiratory therapy duonebs for pneumonia. She was given supplemental oxygen to keep oxygen sats >92 %. PT and OT worked with patient to assist with ambulation dialy. She continued on home medications for ADD, hypercholesteremia, HTN, urinary spasms and pain management. She had SCD and lovenox for DVT prophylaxis. Patient blood cultures remained negative and sputum negative. She originally was started on Vancomycin in the ER was taken off Vancomycin that was started for possible cellulitis of the right lower leg. Patient states that this redness of the lower leg was chronic and the wound culture came back with normal manjit. On day of discharge, patient was stable and wanting to go home. She remained afebrile, WBC down and she was ambulating in the hallway. She was given prescriptions for antibiotics and breathing treatments. She was stable to be discharged home with family. She verbally understood that she would followup with her primary care provider within the week after discharge - ALLERGIES Allergies/Adverse Reactions: Allergies Allergy/AdvReac Type Severity Reaction Status Date / Time erythromycin lactobionate * Allergy Intermediate Emesis Verified 11/23/16 00:11 [From Erythrocin] imipramine HCl * Allergy Unknown bronchospas Verified 11/23/16 00:11 [From Tofranil] ms metformin Allergy Unknown emesis, Verified 11/23/16 00:11 dyspepsia nitrofurantoin Allergy Unknown nausea, Verified 11/23/16 00:11 [Nitrofurantoin] weakness, malaise Sulfa (Sulfonamide Allergy Unknown urticaria Verified 11/23/16 00:11 Antibiotics) - MEDICATIONS Home Medications: Ambulatory Orders Medication Instructions Recorded Confirmed Ibuprofen [Motrin] 800 mg PO Q8H PRN 01/30/13 05/19/17 Levothyroxine Sodium [Synthroid] 75 mcg PO DAILY 01/30/13 05/19/17 Citalopram [CeleXA] 20 mg PO DAILY 10/30/14 05/19/17 Simvastatin [Zocor] 5 mg PO DAILY 10/30/14 05/19/17 oxyCODONE [Roxicodone] 20 mg PO Q4H PRN 01/19/15 05/19/17 Lisinopril 10 mg PO DAILY 06/28/15 05/19/17 Baclofen 20 mg PO QID PRN 11/23/16 05/19/17 Furosemide [Lasix] 40 mg PO DAILY 11/23/16 05/19/17 Oxybutynin [Ditropan] 5 mg PO BID 11/23/16 05/19/17 Potassium Chloride [Klor-Con M20] 20 meq PO DAILY 11/23/16 05/19/17 Chlorpheniramine Maleate 4 mg PO QID PRN 05/19/17 05/19/17 [Chlorhist] Dextroamphetamine/Amphetamine 30 mg ORAL BID 05/19/17 05/19/17 [Dextroamp-Amphetamin 30 mg Tab] Docusate Sodium 100 mg PO DAILY 05/19/17 05/19/17 diphenhydrAMINE [Benadryl] 25 mg PO QID PRN 05/19/17 05/19/17 Albuterol Sulf [Ventolin Hfa 2 puffs INH Q4HR PRN #1 inhaler 05/22/17 Inhaler] Levofloxacin [Levaquin] 500 mg PO DAILY #7 tablet 05/22/17 guaiFENesin [Mucinex] 600 mg PO BID #20 tablet 05/22/17 - PHYSICAL EXAM AT DISCHARGE General Appearance: positive: No acute distress, Alert Eyes Bilateral: positive: Normal inspection, PERRL, EOMI, No lid inflammation ENT: positive: ENT inspection nml, Pharynx nml, No signs of dehydration Neck: positive: Nml inspection, Thyroid nml, No JVD, Trachea midline Respiratory: positive: Chest non-tender, No respiratory distress, Breath sounds nml Cardiovascular: positive: Regular rate & rhythm, No murmur, No gallop Peripheral Pulses: positive: 2+ Abdomen: positive: Non-tender, No organomegaly, Nml bowel sounds, No distention. negative: Guarding, Rebound Back: positive: Nml inspection. negative: CVA tenderness (R), CVA tenderness (L ) Skin: positive: Color nml, No rash, Warm, Dry Extremities: positive: Non-tender, Full ROM, Nml appearance, No pedal edema Neurologic/Psychiatric: positive: Oriented x3, CN's nml (2-12), Motor nml, Sensation nml, Mood/affect nml - LABS Result Diagrams: 05/22/17 05:25 05/22/17 05:25 Other Lab Results: Abnormal Lab Results 05/20/17 05/20/17 05/20/17 05:30 05:30 07:39 WBC RBC 3.36 10^6/uL L 10^6/uL (4.20-5.40) Hgb 10.6 g/dL L g/dL (12.0-16.0) Hct 31.7 % L % (37.0-47.0) MCH 31.7 pg H pg (27.0-31.0) Lymph # [place] # 1.3 10^3/uL H 10^3/uL (0.0-1.0) Potassium Chloride Anion Gap 5.0 L (6-13) Estimated GFR (MDRD) 72 L (>89) Glucose 170 mg/dL H mg/dL (70-100) POC Whole Bld Glucose 118 mg/dL H mg/dL (70 - 100) Calcium 8.3 mg/dL L mg/dL (8.5-10.3) 05/20/17 05/20/17 05/20/17 12:09 16:30 20:36 WBC RBC Hgb Hct MCH Lymph # [place] # Potassium Chloride Anion Gap Estimated GFR (MDRD) Glucose POC Whole Bld Glucose 165 mg/dL H mg/dL 149 mg/dL H mg/dL 163 mg/dL H mg/dL (70 - 100) (70 - 100) (70 - 100) Calcium 05/21/17 05/21/17 05/21/17 06:45 06:45 07:31 WBC RBC 3.48 10^6/uL L 10^6/uL (4.20-5.40) Hgb 10.9 g/dL L g/dL (12.0-16.0) Hct 32.7 % L % (37.0-47.0) MCH 31.5 pg H pg (27.0-31.0) Lymph # 1.3 10^3/uL L 10^3/uL (1.5-3.5) [place] # Potassium Chloride 99 mmol/L L mmol/L (101-111) Anion Gap Estimated GFR (MDRD) 72 L (>89) Glucose 102 mg/dL H mg/dL (70-100) POC Whole Bld Glucose 137 mg/dL H mg/dL (70 - 100) Calcium 05/21/17 05/21/17 05/21/17 11:27 16:35 20:27 WBC RBC Hgb Hct MCH Lymph # [place] # Potassium Chloride Anion Gap Estimated GFR (MDRD) Glucose POC Whole Bld Glucose 177 mg/dL H mg/dL 157 mg/dL H mg/dL 119 mg/dL H mg/dL (70 - 100) (70 - 100) (70 - 100) Calcium 05/22/17 05/22/17 05/22/17 05:25 05:25 07:38 WBC 4.4 x10^3/uL L x10^3/uL (4.8-10.8) RBC 3.36 10^6/uL L 10^6/uL (4.20-5.40) Hgb 10.5 g/dL L g/dL (12.0-16.0) Hct 31.4 % L % (37.0-47.0) MCH 31.3 pg H pg (27.0-31.0) Lymph # 1.0 10^3/uL L 10^3/uL (1.5-3.5) [place] # Potassium 3.4 mmol/L L mmol/L (3.5-5.0) Chloride Anion Gap 5.0 L (6-13) Estimated GFR (MDRD) 84 L (>89) Glucose 141 mg/dL H mg/dL (70-100) POC Whole Bld Glucose 147 mg/dL H mg/dL (70 - 100) Calcium 8.1 mg/dL L mg/dL (8.5-10.3) 05/22/17 11:27 WBC RBC Hgb Hct MCH Lymph # [place] # Potassium Chloride Anion Gap Estimated GFR (MDRD) Glucose POC Whole Bld Glucose 172 mg/dL H mg/dL (70 - 100) Calcium - DIAGNOSTIC IMAGING Diagnostic Imaging Results: See rad report - FOLLOW UP Follow Up: Patient was instructed to followup with primary care provider within one week of discharge. She is going home with daughter and will have assist at home from family. Patient and family verbally understood about home medications and instructions for discharge - TIME SPENT Time Spent in Discharge (Minutes): 45 (on education, planning and assessment)"
[2017-05-22] MEDS: oxyCODONE 5 MG TABLET PO PRN (17:10)
== END 2017-05-22 18:15 | disposition home or self-care (01) | DRG 193 ==
LOC: EDUNIT# → ED 17:10 → MS2 20:32
PROVIDERS: ADMIT Internal Medicine; ATTEND Nurse Practitioner
DX: J18.1 Lobar pneumonia, unspecified organism (principal); I50.9 Heart failure, unspecified; I11.0 Hypertensive heart disease with heart failure; E11.9 Type 2 diabetes mellitus without complications; K21.9 Gastro-esophageal reflux disease without esophagitis; F32.9 Major depressive disorder, single episode, unspecified; F41.9 Anxiety disorder, unspecified; F42.9 Obsessive-compulsive disorder, unspecified; H91.90 Unspecified hearing loss, unspecified ear; Z95.0 Presence of cardiac pacemaker; F17.200 Nicotine dependence, unspecified, uncomplicated; R09.02 Hypoxemia; J96.01 Acute respiratory failure with hypoxia; I69.351 Hemiplegia and hemiparesis following cerebral infarction affecting right dominant side; E83.119 Hemochromatosis, unspecified; E87.6 Hypokalemia; Z86.73 Personal history of transient ischemic attack (TIA), and cerebral infarction without residual deficits; I10 Essential (primary) hypertension; E78.00 Pure hypercholesterolemia, unspecified; F90.9 Attention-deficit hyperactivity disorder, unspecified type
CPT/HCPCS: 36415; 71020; 71250; 80048; 80053; 81001; 83036; 83605; 83690; 83735; 83880; 84443; 85025; 87070; 87086; 87205; 94640; 94664; 96365; 99284; 99285

== ENCOUNTER 2017-05-24 06:06 | Outpatient (CLI) | payer MEDICARE, OTHER | END 2017-05-24 06:07 | disposition critical access hospital (66) | LOC: EMS 06:06 | PROVIDERS: ATTEND Surgery | DX: R44.1 Visual hallucinations (principal) | CPT/HCPCS: A0425; A0429 ==

== ENCOUNTER 2017-05-24 06:19 | Emergency (ER) | payer MEDICARE, OTHER ==
--- NOTE | 2017-05-24 06:43 | ED Physician Documentation ---
ED Addendum - Addendum Addendum: 05/24/17 06:37 pt arrived by EMS at 620 AM and was promptly seen 66 female with pmhx hemochromatosis arrhythmia CHF HTN GERD hypothyroid CVA, has port and PPM BIBA recent admission for pna with hypoxia, was also treated for RLE erythema (which was chronic per dc summary) only new meds seem to be mucinex and levaquin and albuterol is brought in to day for visual hallucinations pt states she was seeing a plant coming out of her floor and per EMS had wrapped everything in saran wrap pt denies auditory hallucinations nurses on duty advises pt had some mild confusion and hallucinations when admitted previously but not this severe I saw pt for olfactory hallucinations last spring and CTH was neg at that time pt denies EtOH - sober since 1979 pt denies [employer] AP denies fever cough SOA NVD urinary sx ROS + vis hallucinations Neg head ache neck pain chest pain abd pain fever cough SOA NVD urinary sx Exam VS noted alert and oriented X 3 RRR + murmur (not new per pt) Lungs CTAB abd soft NT neuro R hemiplegia 2/2 prior CVA janae LE s edema Ext / derm some erythema to anterior RLE is not new per pt and chart, Neuro alert and oriented but + vis hallucinations seeing plants coming out of lisa labs ordered and will turn over to day shift at 7 AM with labs etc pending and pt may need mental health eval 05/24/17 06:43 05/24/17 06:47 05/24/17 07:36
[2017-05-24 06:56] LABS: BASOPHILS # (AUTO) 0.1 10^3/uL (0.0-0.1); BASOPHILS % (AUTO) 1.4 %; EOSINOPHILS # (AUTO) 0.1 10^3/uL (0.0-0.7); EOSINOPHILS % (AUTO) 2.2 %; HCT - HEMATOCRIT 33.9 % (37.0-47.0); HGB - HEMOGLOBIN 11.5 g/dL (12.0-16.0); LYMPHOCYTES # (AUTO) 1.3 10^3/uL (1.5-3.5); LYMPHOCYTES % (AUTO) 22.6 %; MEAN CORPUSCULAR HEMOGLOBIN 31.8 pg (27.0-31.0); MEAN CORPUSCULAR HGB CONC 34.1 g/dL (32.0-36.0); MEAN CORPUSCULAR VOLUME 93.2 fL (81.0-99.0); MEAN PLATELET VOLUME 8.5 fL (7.9-10.8); MONOCYTES # (AUTO) 0.6 10^3/uL (0.0-1.0); MONOCYTES % (AUTO) 11.1 %; NEUTROPHILS # (AUTO) 3.5 10^3/uL (1.5-6.6); NEUTROPHILS % (AUTO) 62.7 %; RED BLOOD COUNT 3.63 10^6/uL (4.20-5.40); UNCORRECTED WHITE BLOOD COUNT 5.7 x10^3/uL; WHITE BLOOD COUNT 5.7 x10^3/uL (4.8-10.8)
[2017-05-24 07:09] LABS: ALBUMIN/GLOBULIN RATIO 1.1 (1.0-2.2); BILIRUBIN,TOTAL 0.5 mg/dL (0.2-1.0); BUN - BLOOD UREA NITROGEN 11 mg/dL (6-20); CALCIUM 8.6 mg/dL (8.5-10.3); CARBON DIOXIDE - CO2 28 mmol/L (21-32); CHLORIDE 104 mmol/L (101-111); CREATININE 0.8 mg/dL (0.4-1.0); GFR - MDRD 72 (>89); GLUCOSE 133 mg/dL (70-100); LIPASE 17 U/L (22-51); POTASSIUM 3.5 mmol/L (3.5-5.0); SALICYLATE < 6.0 mg/dL; SODIUM 140 mmol/L (135-145); TOTAL PROTEIN 6.5 g/dL (6.7-8.2)
[2017-05-24 07:10] LABS: ACETAMINOPHEN < 10 ug/mL (10-30)
--- NOTE | 2017-05-24 07:37 | XRAY Preliminary Report ---
Exam: XR Chest 1 View IMPRESSION: 1. There is cardiomegaly. Lung volumes are within normal limits. 2. The plain film appearance of the left base is not significantly changed as compared to the previou s examination. There may be some persistent airspace disease. 3. No new areas of airspace disease are seen. 4. No evidence of pneumothorax. [facility] SITE ID: [id number]
--- NOTE | 2017-05-24 07:39 | XRAY Report ---
EXAM: CHEST RADIOGRAPHY EXAM DATE: 05/24/2017 06:57 AM. CLINICAL HISTORY: Dyspnea. COMPARISON: 05/21/2017. TECHNIQUE: 1 view. FINDINGS: Lungs/Pleura: Lungs well expanded. There may be some persistent airspace disease within the left lung base. The plain film appearance of the left lung base is not appreciably changed as compared to the prior study. No pleural effusion. No pneumothorax. Mediastinum: There is cardiomegaly. Left subclavian dual-lead pacemaker is stable in position. Right Port-A-Cath is in place. Other: No acute bony abnormalities are seen. IMPRESSION: 1. There is cardiomegaly. Lung volumes are within normal limits. 2. The plain film appearance of the left base is not significantly changed as compared to the previou s examination. There may be some persistent airspace disease. 3. No new areas of airspace disease are seen. 4. No evidence of pneumothorax. [facility] Referring Provider Line: [phone] SITE ID: [id number]
[2017-05-24 08:45] LABS: BILIRUBIN,URINE NEGATIVE (NEGATIVE)
[2017-05-24 08:46] LABS: UA CHARGE (STRIP ONLY) YES; UR CULTURE IF IND NOT INDICATED
--- NOTE | 2017-05-24 09:42 | ED Physician Documentation ---
History of Present Illness - Stated complaint Stated Complaint: SOA, HALLUCINATIONS - Chief complaint Chief Complaint: Neuro - History obtained from History obtained from: Patient, Family (Daughter) - Additonal information Additional information: The patient is a 66-year-old female who is brought to the emergency department for evaluation of visual hallucinations. She lives in her own home and her daughter lives with her and helps care for her. The patient has been describing hallucinations such as plants growing out of the floor. She has a history of similar symptoms waxing and waning for the past 8 years according to her daughter, but it has been getting worse recently. She was recently hospitalized for pneumonia with hypoxia, and was discharged from the hospital 2 days ago. She also has history of diabetes and hemochromatosis. She has history of CVA and uses a walker or a cane when ambulating. The patient describes to me increased stress associated with her daughter recently moving into her home. For the past 2 years or more her granddaughter has been staying with her, but 2 weeks ago her daughter moved into her house, and her granddaughter moved out. The patient states her daughter "yells at me all the time," and "she tells me to grow up." Review of Systems Constitutional: denies: Fever Eyes: denies: Decreased vision Ears: denies: Tinnitus/ringing Nose: denies: Congestion Throat: denies: Sore throat Cardiac: denies: Chest pain / pressure Respiratory: reports: Cough (Improving.). denies: Dyspnea GI: denies: Abdominal Pain, Nausea, Vomiting : denies: Dysuria Skin: denies: Rash Musculoskeletal: denies: Back pain Neurologic: reports: Generalized weakness. denies: Focal weakness, Numbness, Headache Psychiatric: reports: Hallucinations PD PAST MEDICAL HISTORY - Past Medical History Past Medical History: Yes Cardiovascular: Congestive heart failure, Hypertension, Arrhythmia, Other Respiratory: None Neuro: CVA Endocrine/Autoimmune: Type 2 diabetes GI: GERD, Hiatal hernia : None HEENT: Chronic hearing loss Psych: Depression, Anxiety, Obsessive compulsive disorder Musculoskeletal: Other Derm: Eczema - Past Surgical History Past Surgical History: Yes General: Cholecystectomy, Appendectomy /LICENSED ARCHITECT: Hysterectomy, Oophrectomy Cardiovascular: Pacemaker - Present Medications Home Medications: Ambulatory Orders Medication Instructions Recorded Confirmed Ibuprofen [Motrin] 800 mg PO Q8H PRN 01/30/13 05/24/17 Levothyroxine Sodium [Synthroid] 75 mcg PO DAILY 01/30/13 05/24/17 Citalopram [CeleXA] 20 mg PO DAILY 10/30/14 05/24/17 Simvastatin [Zocor] 5 mg PO DAILY 10/30/14 05/24/17 oxyCODONE [Roxicodone] 20 mg PO Q4H PRN 01/19/15 05/24/17 Lisinopril 10 mg PO DAILY 06/28/15 05/24/17 Baclofen 20 mg PO QID PRN 11/23/16 05/24/17 Furosemide [Lasix] 40 mg PO DAILY 11/23/16 05/24/17 Oxybutynin [Ditropan] 5 mg PO BID 11/23/16 05/24/17 Potassium Chloride [Klor-Con M20] 20 meq PO DAILY 11/23/16 05/24/17 Chlorpheniramine Maleate 4 mg PO QID PRN 05/19/17 05/24/17 [Chlorhist] Dextroamphetamine/Amphetamine 30 mg ORAL BID 05/19/17 05/24/17 [Dextroamp-Amphetamin 30 mg Tab] Docusate Sodium 100 mg PO DAILY 05/19/17 05/24/17 diphenhydrAMINE [Benadryl] 25 mg PO QID PRN 05/19/17 05/24/17 Albuterol Sulf [Ventolin Hfa 2 puffs INH Q4HR PRN #1 inhaler 05/22/17 05/24/17 Inhaler] Levofloxacin [Levaquin] 500 mg PO DAILY #7 tablet 05/22/17 05/24/17 guaiFENesin [Mucinex] 600 mg PO BID #20 tablet 05/22/17 05/24/17 - Allergies Allergies/Adverse Reactions: Allergies Allergy/AdvReac Type Severity Reaction Status Date / Time erythromycin lactobionate * Allergy Intermediate Emesis Verified 11/23/16 00:11 [From Erythrocin] imipramine HCl * Allergy Unknown bronchospas Verified 11/23/16 00:11 [From Tofranil] ms metformin Allergy Unknown emesis, Verified 11/23/16 00:11 dyspepsia nitrofurantoin Allergy Unknown nausea, Verified 11/23/16 00:11 [Nitrofurantoin] weakness, malaise Sulfa (Sulfonamide Allergy Unknown urticaria Verified 11/23/16 00:11 Antibiotics) - Living Situation Living Situation: reports: With family Living Arrangement: reports: At home - Social History Does the pt smoke?: No Smoking Status: Current some day smoker Does the pt drink ETOH?: No Does the pt have substance abuse?: No - Immunizations Immunizations are current?: Yes - POLST Patient has POLST: No PD ED PE NORMAL - Vitals Vital signs reviewed: Yes (Mild systolic hypertension.) - General General: Other (Alert, frail female who appears older than her stated age, and who is disoriented to date.) - HEENT HEENT: Atraumatic, EOMI, Pharynx benign, Other (Dry mucous membranes.) - Neck Neck: Supple, no meningeal sign, No adenopathy, No JVD - Cardiac Cardiac: RRR - Respiratory Respiratory: No respiratory distress, Clear bilaterally - Abdomen Abdomen: Soft, Non tender - Back Back: No CVA TTP - Derm Derm: No rash - Extremities Extremities: No edema, No calf tenderness / cord - Neuro Neuro: No motor deficit, No sensory deficit, Other (Alert, oriented 2. Visual hallucinations consisting of colorful things shimmering. At one point the patient snatched something out of thin air and described it as colorful fuzz. She was surprised that I was unable to see the object she grasped in her hand.) Results - Vitals Vitals: Vital Signs - 24 hr 05/24/17 12:49 Temperature 36.6 C Heart Rate 77 Respiratory 16 Rate Blood Pressure 141/66 H O2 Saturation 97 Oxygen O2 Source [] Room air O2 Source Room air - Labs Labs: Laboratory Tests 05/24/17 05/24/17 05/24/17 06:46 06:46 06:46 WBC 5.7 RBC 3.63 L Hgb 11.5 L Hct 33.9 L MCV 93.2 MCH 31.8 H MCHC 34.1 RDW 14.0 Plt Count 228 MPV 8.5 Neut # 3.5 Lymph # 1.3 L [place] # 0.6 Eos # 0.1 Baso # 0.1 Absolute Nucleated RBC 0.00 Nucleated RBCs 0.0 Sodium 140 Potassium 3.5 Chloride 104 Carbon Dioxide 28 Anion Gap 8.0 BUN 11 Creatinine 0.8 Estimated GFR (MDRD) 72 L Glucose 133 H Calcium 8.6 Total Bilirubin 0.5 AST 45 H ALT 34 Alkaline Phosphatase 95 Total Protein 6.5 L Albumin 3.4 Globulin 3.1 Albumin/Globulin Ratio 1.1 Lipase 17 L TSH 2.19 Urine Color Urine Clarity Urine pH Ur Specific [place] Urine Protein Urine Glucose (UA) Urine Ketones Urine Occult Blood Urine Nitrite Urine Bilirubin Urine Urobilinogen Ur Leukocyte Esterase Ur Microscopic Review Urine Culture Comments Salicylates < 6.0 Urine Opiates Screen Ur Oxycodone Screen Urine Methadone Screen Ur Propoxyphene Screen Acetaminophen < 10 L Ur Barbiturates Screen Ur Tricyclics Screen Ur Phencyclidine Scrn Ur Amphetamine Screen U Methamphetamines Scrn U Benzodiazepines Scrn Urine Cocaine Screen U Cannabinoids Screen Ethyl Alcohol < 5.0 05/24/17 05/24/17 05/24/17 07:56 10:10 10:10 WBC 5.2 RBC 3.50 L Hgb 10.9 L Hct 32.4 L MCV 92.5 MCH 31.1 H MCHC 33.7 RDW 13.8 Plt Count 210 MPV 9.0 Neut # 3.0 Lymph # 1.5 [place] # 0.5 Eos # 0.1 Baso # 0.1 Absolute Nucleated RBC 0.00 Nucleated RBCs 0.0 Sodium 140 Potassium 3.7 Chloride 103 Carbon Dioxide 30 Anion Gap 7.0 BUN 11 Creatinine 0.8 Estimated GFR (MDRD) 72 L Glucose 125 H Calcium 8.4 L Total Bilirubin 0.6 AST 42 ALT 33 Alkaline Phosphatase 94 Total Protein 5.9 L Albumin 3.0 L Globulin 2.9 Albumin/Globulin Ratio 1.0 Lipase 14 L TSH Urine Color YELLOW Urine Clarity CLEAR Urine pH 6.0 Ur Specific [place] >=1.030 H Urine Protein NEGATIVE Urine Glucose (UA) NEGATIVE Urine Ketones TRACE Urine Occult Blood NEGATIVE Urine Nitrite NEGATIVE Urine Bilirubin NEGATIVE Urine Urobilinogen 1 (NORMAL) Ur Leukocyte Esterase NEGATIVE Ur Microscopic Review NOT INDICATED Urine Culture Comments NOT INDICATED Salicylates Urine Opiates Screen POSITIVE H Ur Oxycodone Screen POSITIVE H Urine Methadone Screen NEGATIVE Ur Propoxyphene Screen NEGATIVE Acetaminophen Ur Barbiturates Screen NEGATIVE Ur Tricyclics Screen NEGATIVE Ur Phencyclidine Scrn NEGATIVE Ur Amphetamine Screen POSITIVE H U Methamphetamines Scrn NEGATIVE U Benzodiazepines Scrn NEGATIVE Urine Cocaine Screen NEGATIVE U Cannabinoids Screen NEGATIVE Ethyl Alcohol - Rads (name of study) 1-view CXR Radiology: Prelim report reviewed, EMP read contemporaneously, See rad report ( There is cardiomegaly. 1) Lung volumes are within normal limits. 2) The plain film appearance of the left base is not significantly changed as compared to the previous examination. There may be some persistent airspace disease. 3) No new areas of airspace disease are seen. 4) No evidence of pneumothorax.) PD MEDICAL DECISION MAKING - ED course Complexity details: reviewed old records, reviewed results, re-evaluated patient , considered differential, d/w patient, d/w family, d/w actuarial consultant ED course: The patient's presentation is consistent with dehydration and mental confusion with visual hallucinations. Her presentation does not suggest meningitis, sepsis, or hypoxia. Treatment in the emergency department included administration of normal saline 1 L IV. Her symptoms slightly improved with the IV hydration. I discussed her condition with her daughter who agrees that placement in assisted living would be most appropriate for her. I discussed her condition with the medical tech who evaluated her in the emergency department, and provided information for the family to use in arranging placement in assisted living. Departure - Departure Disposition: 01 Home, Self Care Clinical Impression: Visual hallucinations, Dehydration Condition: Stable Instructions: ED Psychosis, ED Dehydration Follow-Up: EDWARD BENSON [Primary Care Provider] - Comments: Drink plenty of fluids. Call for assisted living placement as per referrals by the medical tech. Return to the emergency department at increasing confusion, recurrent dehydration, or otherwise worsening symptoms. Discharge Date/Time: 05/24/17 12:59
[2017-05-24] MEDS ORDERED: SODIUM CHLORIDE 0.9% 1,000 ML IV ONE (09:58)
[2017-05-24 10:26] LABS: BASOPHILS # (AUTO) 0.1 10^3/uL (0.0-0.1); BASOPHILS % (AUTO) 1.9 %; EOSINOPHILS # (AUTO) 0.1 10^3/uL (0.0-0.7); EOSINOPHILS % (AUTO) 1.6 %; HCT - HEMATOCRIT 32.4 % (37.0-47.0); HGB - HEMOGLOBIN 10.9 g/dL (12.0-16.0); LYMPHOCYTES # (AUTO) 1.5 10^3/uL (1.5-3.5); LYMPHOCYTES % (AUTO) 28.9 %; MEAN CORPUSCULAR HEMOGLOBIN 31.1 pg (27.0-31.0); MEAN CORPUSCULAR HGB CONC 33.7 g/dL (32.0-36.0); MEAN CORPUSCULAR VOLUME 92.5 fL (81.0-99.0); MONOCYTES # (AUTO) 0.5 10^3/uL (0.0-1.0); NEUTROPHILS % (AUTO) 57.6 %; RED CELL DISTRIBUTION WIDTH 13.8 % (12.0-15.0); UNCORRECTED WHITE BLOOD COUNT 5.2 x10^3/uL; WHITE BLOOD COUNT 5.2 x10^3/uL (4.8-10.8)
[2017-05-24 10:41] LABS: BILIRUBIN,TOTAL 0.6 mg/dL (0.2-1.0); CALCIUM 8.4 mg/dL (8.5-10.3); CREATININE 0.8 mg/dL (0.4-1.0); POTASSIUM 3.7 mmol/L (3.5-5.0); TOTAL PROTEIN 5.9 g/dL (6.7-8.2)
[2017-05-24 12:49] VITALS: BP 141/66
== END 2017-05-24 12:59 | disposition home or self-care (01) ==
LOC: EDUNIT# → ED 06:19
DX: E86.0 Dehydration (principal); R44.1 Visual hallucinations; R41.0 Disorientation, unspecified; E11.9 Type 2 diabetes mellitus without complications; E83.119 Hemochromatosis, unspecified; I11.0 Hypertensive heart disease with heart failure; I50.9 Heart failure, unspecified; I49.9 Cardiac arrhythmia, unspecified; K21.9 Gastro-esophageal reflux disease without esophagitis; Z86.73 Personal history of transient ischemic attack (TIA), and cerebral infarction without residual deficits; F17.200 Nicotine dependence, unspecified, uncomplicated; R29.810 Facial weakness; M62.40 Contracture of muscle, unspecified site; G81.91 Hemiplegia, unspecified affecting right dominant side
CPT/HCPCS: 36415; 70450; 71010; 80053; 80306; 80307; 81003; 83690; 84443; 85025; 96360; 99284; 99285; G0480; 80320; 80329; 81001; 87086

== ENCOUNTER 2017-05-24 18:01 | Outpatient (CLI) | payer MEDICARE, OTHER ==
--- NOTE | 2017-05-24 18:47 | CT Preliminary Report ---
Exam: CT Head W/O IMPRESSION: 1. No acute intracranial hemorrhage, mass lesion or hydrocephalus. No convincing evidence for acute i nfarct by CT although if there is persistent concern, MRI with diffusion-weighted sequence would be m ore sensitive. 2. Chronic infarcts in the posterior left putamen, bilateral occipital lobes and medial left occipita l lobe appear unchanged. [facility] SITE ID: [id number]
--- NOTE | 2017-05-24 18:50 | CT Report ---
EXAM: CT HEAD EXAM DATE: 05/24/2017 06:30 PM. CLINICAL HISTORY: New right-sided facial drooping, hallucinations. COMPARISON: 11/23/2016. TECHNIQUE: Multiaxial CT images were obtained from the foramen magnum to the vertex. IV contrast: Non e. Reformats: Coronal. Motion artifacts necessitates repeated acquisition. In accordance with CT protocol optimization, one or more of the following dose reduction techniques w ere utilized for this exam: automated exposure control, adjustment of mA and/or KV based on patient s ize, or use of iterative reconstructive technique. FINDINGS: There is no intracranial hemorrhage. There is no midline shift, mass effect or hydrocephalus. Focal h ypodensity and chronic infarct in the posterior left putamen is again demonstrated, without significa nt change. Focal hypodensities and probable chronic infarcts in the medial posterior left occipital l obe and bilateral inferior cerebellum appear unchanged, compatible with chronic infarcts. There is mi ld diffuse cerebral volume loss. Orbits and extracranial soft tissue appear unremarkable. Paranasal sinuses and mastoid air cells are unremarkable. IMPRESSION: 1. No acute intracranial hemorrhage, mass lesion or hydrocephalus. No convincing evidence for acute i nfarct by CT although if there is persistent concern, MRI with diffusion-weighted sequence would be m ore sensitive. 2. Chronic infarcts in the posterior left putamen, bilateral occipital lobes and medial left occipita l lobe appear unchanged. [facility] Referring Provider Line: [phone] SITE ID: [id number]
== END 2017-05-24 18:02 | disposition home or self-care (01) ==
LOC: DI 18:01
PROVIDERS: ATTEND Family Medicine
DX: R29.810 Facial weakness (principal); R44.3 Hallucinations, unspecified; M62.40 Contracture of muscle, unspecified site; G81.91 Hemiplegia, unspecified affecting right dominant side
CPT/HCPCS: 70450

== ENCOUNTER 2017-05-25 09:43 | Outpatient (CLI) | payer MEDICARE, OTHER | END 2017-05-25 09:44 | disposition critical access hospital (66) | LOC: EMS 09:43 | PROVIDERS: ATTEND Surgery | DX: S50.312A Abrasion of left elbow, initial encounter (principal); S80.212A Abrasion, left knee, initial encounter; W18.30XA Fall on same level, unspecified, initial encounter; Z91.81 History of falling; Y93.01 Activity, walking, marching and hiking; Y92.003 Bedroom of unspecified non-institutional (private) residence as the place of occurrence of the external cause | CPT/HCPCS: A0425; A0429 ==

== ENCOUNTER 2017-05-25 09:55 | Inpatient (IN) | payer MEDICARE, OTHER ==
--- NOTE | 2017-05-25 10:45 | ED Physician Documentation ---
History of Present Illness - Stated complaint Stated Complaint: FALL - Chief complaint Chief Complaint: Ext Problem - History obtained from History obtained from: Patient, EMS - History of Present Illness Timing: Today - Additonal information Additional information: 66-year-old female with a history of CVA hypertension and type 2 diabetes has ADHD and is on amphetamine. This morning she had a fall at home and injured her right hip and her left elbow. She is having visual hallucinations and this is a recent phenomena for the patient. She was seen in the emergency department yesterday and evaluated for the visual hallucinations and received 1 L of saline. She appeared dehydrated yesterday. She has had a recent hospitalization for left upper lobe pneumonia. Review of Systems Constitutional: denies: Fever, Chills, Myalgias Eyes: denies: Decreased vision Ears: denies: Ear pain Nose: denies: Congestion Throat: denies: Sore throat Cardiac: denies: Chest pain / pressure, Palpitations Respiratory: denies: Dyspnea, Cough GI: denies: Abdominal Pain, Nausea, Vomiting : denies: Dysuria, Frequency Skin: denies: Rash Musculoskeletal: reports: Extremity pain, Joint pain, Pain with weight bearing. 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, Oophrectomy Cardiovascular: Pacemaker - Present Medications Home Medications: Ambulatory Orders Medication Instructions Recorded Confirmed Ibuprofen [Motrin] 800 mg PO Q8H PRN 01/30/13 05/24/17 Levothyroxine Sodium [Synthroid] 75 mcg PO DAILY 01/30/13 05/24/17 Citalopram [CeleXA] 20 mg PO DAILY 10/30/14 05/24/17 Simvastatin [Zocor] 5 mg PO DAILY 10/30/14 05/24/17 oxyCODONE [Roxicodone] 20 mg PO Q4H PRN 01/19/15 05/24/17 Lisinopril 10 mg PO DAILY 06/28/15 05/24/17 Baclofen 20 mg PO QID PRN 11/23/16 05/24/17 Furosemide [Lasix] 40 mg PO DAILY 11/23/16 05/24/17 Oxybutynin [Ditropan] 5 mg PO BID 11/23/16 05/24/17 Potassium Chloride [Klor-Con M20] 20 meq PO DAILY 11/23/16 05/24/17 Chlorpheniramine Maleate 4 mg PO QID PRN 05/19/17 05/24/17 [Chlorhist] Dextroamphetamine/Amphetamine 30 mg ORAL BID 05/19/17 05/24/17 [Dextroamp-Amphetamin 30 mg Tab] Docusate Sodium 100 mg PO DAILY 05/19/17 05/24/17 diphenhydrAMINE [Benadryl] 25 mg PO QID PRN 05/19/17 05/24/17 Albuterol Sulf [Ventolin Hfa 2 puffs INH Q4HR PRN #1 inhaler 05/22/17 05/24/17 Inhaler] Levofloxacin [Levaquin] 500 mg PO DAILY #7 tablet 05/22/17 05/24/17 guaiFENesin [Mucinex] 600 mg PO BID #20 tablet 05/22/17 05/24/17 - Allergies Allergies/Adverse Reactions: Allergies Allergy/AdvReac Type Severity Reaction Status Date / Time erythromycin lactobionate * Allergy Intermediate Emesis Verified 11/23/16 00:11 [From Erythrocin] imipramine HCl * Allergy Unknown bronchospas Verified 11/23/16 00:11 [From Tofranil] ms metformin Allergy Unknown emesis, Verified 11/23/16 00:11 dyspepsia nitrofurantoin Allergy Unknown nausea, Verified 11/23/16 00:11 [Nitrofurantoin] weakness, malaise Sulfa (Sulfonamide Allergy Unknown urticaria Verified 11/23/16 00:11 Antibiotics) - Social History Does the pt smoke?: No Smoking Status: Current some day smoker Does the pt drink ETOH?: No Does the pt have substance abuse?: No - Immunizations Immunizations are current?: Yes - POLST Patient has POLST: No PD ED PE NORMAL - Vitals Vital signs reviewed: Yes (hypertensive ) - General General: No acute distress, Well developed/nourished - HEENT HEENT: Atraumatic, PERRL, EOMI, Ears normal, Other (dry mucous membranes) - Neck Neck: Supple, no meningeal sign, No bony TTP - Cardiac Cardiac: RRR, Other (2/6 holosystolic murmer at LSB) - Respiratory Respiratory: No respiratory distress, Clear bilaterally - Abdomen Abdomen: Soft, Non tender - Back Back: No CVA TTP, No spinal TTP - Derm Derm: Normal color, Warm and dry, No rash - Extremities Extremities: No deformity, Other (There is an abrasion to the left elbow over the olecrenon and this area is tender. There is no restriction to flexion extension and supination/pronation. The right hip is tender over the trochanter and there is normal ROM of the hip joint. Distal n/v intact. ) - Neuro Neuro: Other (The patient has contracture of the right upper ext from prior CVA. She has a partial right facial droop as well. ) - Psych Psych: Normal mood, Normal affect, Other (She does appear to have visual hallucinations. When I come in to the room she is picking at her bed covers and trying to hand me a "bookcase" . ) Results - Vitals Vitals: Vital Signs - 24 hr 05/25/17 05/25/17 10:01 13:27 Temperature 36.7 C Heart Rate 83 70 Respiratory 16 16 Rate Blood Pressure 135/85 H 152/81 H O2 Saturation 96 99 Oxygen O2 Source [] Room air O2 Source Room air - Labs Labs: Laboratory Tests 05/25/17 05/25/17 05/25/17 11:01 11:01 11:40 WBC 5.0 RBC 3.85 L Hgb 11.9 L Hct 36.0 L MCV 93.5 MCH 30.8 MCHC 33.0 RDW 14.0 Plt Count 200 MPV 8.9 Neut # 3.4 Lymph # 0.9 L Crawford # 0.5 Eos # 0.1 Baso # 0.1 Absolute Nucleated RBC 0.00 Nucleated RBCs 0.1 Sodium 138 Potassium 3.8 Chloride 101 Carbon Dioxide 28 Anion Gap 9.0 BUN 8 Creatinine 0.7 Estimated GFR (MDRD) 84 L Glucose 148 H Calcium 8.7 Total Bilirubin 0.7 AST 36 ALT 32 Alkaline Phosphatase 94 Total Protein 6.4 L Albumin 3.2 Globulin 3.2 Albumin/Globulin Ratio 1.0 Lipase 19 L Urine Color STRAW Urine Clarity HAZY Urine pH 8.0 H Ur Specific Billingsley 1.015 Urine Protein NEGATIVE Urine Glucose (UA) NEGATIVE Urine Ketones NEGATIVE Urine Occult Blood NEGATIVE Urine Nitrite NEGATIVE Urine Bilirubin NEGATIVE Urine Urobilinogen 0.2 (NORMAL) Ur Leukocyte Esterase NEGATIVE Urine RBC 0-5 Urine WBC 4-5 Ur Squamous Epith Cells MANY Squamous H Urine Bacteria Few Ur Microscopic Review INDICATED Urine Culture Comments NOT INDICATED - Rads (name of study) 2 view chest Radiology: Prelim report reviewed (Impression: Increasing patchy lower lobe airspace disease bilaterally.), EMP read indepedently, See rad report left elbow Radiology: Prelim report reviewed (Impression: Normal elbow radiography.), EMP read indepedently, See rad report Right hip Radiology: Prelim report reviewed (Impression: Normal pelvis and hip radiography.), EMP read indepedently, See rad report Procedures - IVC sono (time) 1040 Bedside IVC sono: IVC measures (cm) (1.50), Euvolemia PD MEDICAL DECISION MAKING - ED course Complexity details: reviewed old records, reviewed results, re-evaluated patient , considered differential, d/w patient, d/w family ED course: 66y/o female with a recent pneumonia has recovered from this and remains weak and is having falls. She has developed visual hallucinations yesterday. She is on amphetamine and she continues to have hallucinations today. Her blood counts , electrolytes and her vascular volume (as determined by interrogation of tghe IVC with bedside ultrasound) are all in normal range today. I was asked to clear this patient for psychiatric evaluation and after review of my work up today I realized I did not address the pneumonia the patient was recently in the hospital for and a repeat CXR was obtained today. A CXR from yesterday is available for comparison and her disease has progressed from yesterday and the progression is not subtle. She is symptomatic with weakness, falls and hallucinations despite a normal vascular volume, a lack of fever, hypoxia or elevation of WBC. I have asked our hospitalist to evaluate the patient as I believe in-patient services are indicated. Departure - Departure Disposition: 66 [facility] DC/Xfer Clinical Impression: Visual hallucinations Pneumonia Qualifiers: Pneumonia type: due to unspecified organism Laterality: bilateral Lung location : lower lobe of lung Qualified Code(s): J18.9 - Pneumonia, unspecified organism Fall from slip, trip, or stumble Qualifiers: Encounter type: initial encounter Qualified Code(s): W01.0XXA - Fall on same level from slipping, tripping and stumbling without subsequent striking against object, initial encounter Condition: Stable
[2017-05-25 11:14] LABS: BASOPHILS # (AUTO) 0.1 10^3/uL (0.0-0.1); BASOPHILS % (AUTO) 1.7 %; EOSINOPHILS # (AUTO) 0.1 10^3/uL (0.0-0.7); EOSINOPHILS % (AUTO) 1.5 %; HGB - HEMOGLOBIN 11.9 g/dL (12.0-16.0); LYMPHOCYTES # (AUTO) 0.9 10^3/uL (1.5-3.5); LYMPHOCYTES % (AUTO) 17.9 %; MEAN CORPUSCULAR HEMOGLOBIN 30.8 pg (27.0-31.0); MEAN CORPUSCULAR VOLUME 93.5 fL (81.0-99.0); MEAN PLATELET VOLUME 8.9 fL (7.9-10.8); MONOCYTES # (AUTO) 0.5 10^3/uL (0.0-1.0); MONOCYTES % (AUTO) 9.5 %; NEUTROPHILS # (AUTO) 3.4 10^3/uL (1.5-6.6); NEUTROPHILS % (AUTO) 69.4 %; NUCLEATED RED BLOOD CELLS AUTO 0.1 /100WBC; RED BLOOD COUNT 3.85 10^6/uL (4.20-5.40)
[2017-05-25 11:21] LABS: BILIRUBIN,TOTAL 0.7 mg/dL (0.2-1.0); CALCIUM 8.7 mg/dL (8.5-10.3); CREATININE 0.7 mg/dL (0.4-1.0); POTASSIUM 3.8 mmol/L (3.5-5.0); TOTAL PROTEIN 6.4 g/dL (6.7-8.2)
--- NOTE | 2017-05-25 11:36 | XRAY Preliminary Report ---
Exam: XR Hip w/Pelvis 2-3V RT IMPRESSION: Normal pelvis and hip radiography. [facility] SITE ID: [id number]
--- NOTE | 2017-05-25 11:37 | XRAY Preliminary Report ---
Exam: XR Elbow 3 View LT IMPRESSION: Normal elbow radiography. [facility] SITE ID: [id number]
--- NOTE | 2017-05-25 11:39 | XRAY Report ---
EXAM: RIGHT HIP AND PELVIS RADIOGRAPHY EXAM DATE: 05/25/2017 11:25 AM. HISTORY: Fall trochanter pain . COMPARISONS: None. TECHNIQUE: 1 view of the pelvis and 1 view of the hip. FINDINGS: Bones: Normal. No fracture or bone lesion. Joints: Mild superior joint space narrowing in the hips bilaterally with mild spurring from acetabula r margin and traction spurring from the greater trochanter bilaterally. Pubis symphysis, and sacroili ac joints are preserved. Soft Tissues: Normal. No soft tissue swelling. Other: Spondylotic changes in the lower lumbar spine and lumbosacral junction. IMPRESSION: Normal pelvis and hip radiography. [facility] Referring Provider Line: [phone] SITE ID: [id number]
--- NOTE | 2017-05-25 11:40 | XRAY Report ---
EXAM: LEFT ELBOW RADIOGRAPHY EXAM DATE: 05/25/2017 11:24 AM. CLINICAL HISTORY: Fall olecrenon contusion. COMPARISON: None. TECHNIQUE: 3 views. FINDINGS: Bones: Normal. No fractures or bone lesions. Joints: Normal. No effusion. No subluxation. Soft Tissues: Normal. No soft tissue swelling. IMPRESSION: Normal elbow radiography. [facility] Referring Provider Line: [phone] SITE ID: [id number]
[2017-05-25 11:58] LABS: BILIRUBIN,URINE NEGATIVE (NEGATIVE)
[2017-05-25 12:00] LABS: UA w/ MICROSCOPIC CHARGE YES
[2017-05-25 12:25] LABS: UR CULTURE IF IND NOT INDICATED
--- NOTE | 2017-05-25 15:35 | XRAY Preliminary Report ---
Exam: XR Chest 2 View PA/LAT IMPRESSION: Increase in patchy lower lobe air space disease bilaterally. [facility] SITE ID: [id number]
--- NOTE | 2017-05-25 15:37 | XRAY Report ---
EXAM: CHEST RADIOGRAPHY EXAM DATE: 05/25/2017 03:27 PM. CLINICAL HISTORY: Recent pneumonia . COMPARISON: 05/24/2017. TECHNIQUE: 2 views. FINDINGS: Lungs/Pleura: Patchy airspace disease in the lower lobes is increasing. No effusion or pneumothorax. Mediastinum: Heart and mediastinal contours are unremarkable. Other: Stable right port and left pacemaker. IMPRESSION: Increase in patchy lower lobe air space disease bilaterally. [facility] Referring Provider Line: [phone] SITE ID: [id number]
[2017-05-25] MEDS ORDERED: ONDANSETRON 4 MG/2 ML VIAL IVP PRN (16:40)
[2017-05-25] MEDS ORDERED: ACETAMINOPHEN 325 MG TABLET PO PRN (16:40)
[2017-05-25] MEDS ORDERED: SODIUM CHLORIDE 0.9% 1,000 ML IV SCH (17:00)
--- NOTE | 2017-05-25 17:23 | HISTORY & PHYSICAL EXAMINATION ---
Chief Complaint - Chief Complaint Chief Complaint: fall History of Present Illness - Admitted From Admitted From:: emergence department - History Obtained From History obtained from: patient - History of Present Illness HPI Comment/Other: This is a 66-year-old female with significant past medical history of CHF, HTN, arrhythmia, CVA, DM2, GERD, hiatal hernia, chronic hearing loss, depression, anxiety, obsessive compulsive disorder, eczema, hemochromatosis, who present emergence department of [facility] for evaluation of fall, medical clearance for psychiatric evaluation of vision hallucination. Patient was discharged to her home from this facility three days for upper and lower extremities cellulitis and pneumonia. Patient report she has twice falls today morning at home after discharge from hospital. She tried to reach the thing then she trip and fell in the ground. She report some pain at her left knee and right hip which was resulted from the falls. She denies other pain or injury from the falls. She denies chest pain, shortness of breathing, cough, fever, chill. She denies headache, vision changing, dysuria, hematuria. There is no nausea, vomiting, diarrhea, abdominal pain. Patient was seen in this emergence room yesterday for evaluation of visual hallucinations. She was received one liter of NS on yesterday. Patient's image study on left knee, right hip and CT of head are without acute finding on today. CXR reveals increase in the patchy lobe air space disease bilaterally. Patient's vital signs are unremarkable, no fever, and room air with saturation of O2 98%. Lab test in ER today reveals unremarkable either, WBC 5, UA unremarkable. Patient is admitted in observation unit for evaluation of pneumonia and medical clearance for further psychiatric evaluation. Review of Systems - Constitutional Constitutional: reports: Weakness. denies: Fever, Chills, Malaise, Poor appetite, Diaphoresis, Night sweats, Weight gain, Weight loss - Eyes Eyes: denies: Pain, Irritation, Amaurosis, Blurred vision, Spots in vision, Field loss, Vision loss, Dipolpia - Ears, Nose & Throat Ears, Nose & Throat: denies: Ear pain, Hearing aids, Tinnitus, Vertigo, Nasal discharge, Nosebleeds, Nasal congestion, Sore throat, Hoarseness - Cardiovascular Cariovascular: denies: Irregular heart rate, Palpitations, Chest pain, Edema, Lightheadedness, Syncope, Exertional dyspnea, Orthopnea - Respiratory Respiratory: denies: Cough, Sputum production, Wheezing, Snoring, Hemoptysis, Orthopnea, SOB at rest, SOB with exertion, Apnea - Gastrointestinal Gastrointestinal: denies: Abdominal pain, Abdominal distention, Constipation, Diarrhea, Rectal bleeding, Black stools, Bloody stools, Nausea, Vomiting, Bile emesis, Danny blood emesis, Coffee grounds emesis - Genitourinary Genitourinary: denies: Dysuria, Frequency, Urgency, Hematuria, Incontinence, Flank pain, Nocturia - Musculoskeletal Musculoskeletal: reports: Limited range of motion, Muscle weakness. denies: Muscle pain, Back pain, Muscle aches, Stiffness, Joint swelling - Integumentary Integumentary: reports: Rash (right lower extremity). denies: Pruritis, Lesions , Pigment changes - Neurological Neurological: reports: Pre-existing deficit, Abnormal gait, Incoordination, Slurred speech. denies: Focal weakness, Headache, Dizziness, Numbness, Seizures - Psychiatric Psychiatric: denies: Depression, Anxiety, Suicidal, Delusions, Hallucinations, Homicidal - Endocrine Endocrine: denies: Polyuria, Polydypsia, Polyphagia, Intolerance to cold, Intolerance to heat - Hematologic/Lymphatic Hematologic/Lymphatic: reports: Recurrent infections. denies: Anemia, Bruising , Petechiae, Lymphadenopathy History - Past Medical History Cardiovascular: reports: Congestive heart failure, Hypertension, Arrhythmia, Other Respiratory: reports: None Neuro: reports: CVA Endocrine/Autoimmune: reports: Type 2 diabetes GI: reports: GERD, Hiatal hernia : reports: None HEENT: reports: Chronic hearing loss Psych: reports: Depression, Anxiety, Obsessive compulsive disorder Musculoskeletal: reports: Other Derm: reports: Eczema MRSA Hx?: No - Past Surgical History General: reports: Cholecystectomy, Appendectomy /HOSPICE LIAISON: reports: Hysterectomy, Oophrectomy Cardiovascular: reports: Pacemaker - Family & Social History Family History: Mother: (Mom from complication of CHF. Patient has not seen her Dad since at her age 19), Father: Family History Comment/Other: Patient report she had four children, two girls and two boys. all her children are healthy. Patient is living with her daughter at her own home on [address]. Her at 2011 from heart attack. Living arrangement: At home Living Situation: With family Social History Notes: Patient report she stoped cigarett smoking at 2011, stoped alcohol drank at 1983, no illicit drug. - Substance History Use: Uses substance without health or social issues: NONE Abuse: Recurrent use of substance despite neg consequences: NONE Dependence: Experiences withdrawal or developed tolerances: NONE - POLST Patient has POLST: No POLST Status: DNR (patient report her code status is DNR) Meds/Allgy - Home Medications Home Medications: Ambulatory Orders Medication Instructions Recorded Confirmed Ibuprofen [Motrin] 800 mg PO Q8H PRN 01/30/13 05/24/17 Levothyroxine Sodium [Synthroid] 75 mcg PO DAILY 01/30/13 05/24/17 Citalopram [CeleXA] 20 mg PO DAILY 10/30/14 05/24/17 Simvastatin [Zocor] 5 mg PO DAILY 10/30/14 05/24/17 oxyCODONE [Roxicodone] 20 mg PO Q4H PRN 01/19/15 05/24/17 Lisinopril 10 mg PO DAILY 06/28/15 05/24/17 Baclofen 20 mg PO QID PRN 11/23/16 05/24/17 Furosemide [Lasix] 40 mg PO DAILY 11/23/16 05/24/17 Oxybutynin [Ditropan] 5 mg PO BID 11/23/16 05/24/17 Potassium Chloride [Klor-Con M20] 20 meq PO DAILY 11/23/16 05/24/17 Chlorpheniramine Maleate 4 mg PO QID PRN 05/19/17 05/24/17 [Chlorhist] Dextroamphetamine/Amphetamine 30 mg ORAL BID 05/19/17 05/24/17 [Dextroamp-Amphetamin 30 mg Tab] Docusate Sodium 100 mg PO DAILY 05/19/17 05/24/17 diphenhydrAMINE [Benadryl] 25 mg PO QID PRN 05/19/17 05/24/17 Albuterol Sulf [Ventolin Hfa 2 puffs INH Q4HR PRN #1 inhaler 05/22/17 05/24/17 Inhaler] Levofloxacin [Levaquin] 500 mg PO DAILY #7 tablet 05/22/17 05/24/17 guaiFENesin [Mucinex] 600 mg PO BID #20 tablet 05/22/17 05/24/17 - Allergies Allergies/Adverse Reactions: Allergies Allergy/AdvReac Type Severity Reaction Status Date / Time erythromycin lactobionate * Allergy Intermediate Emesis Verified 11/23/16 00:11 [From Erythrocin] imipramine HCl * Allergy Unknown bronchospas Verified 11/23/16 00:11 [From Tofranil] ms metformin Allergy Unknown emesis, Verified 11/23/16 00:11 dyspepsia nitrofurantoin Allergy Unknown nausea, Verified 11/23/16 00:11 [Nitrofurantoin] weakness, malaise Sulfa (Sulfonamide Allergy Unknown urticaria Verified 11/23/16 00:11 Antibiotics) Exam - Vital Signs Reviewed Vital Signs: Yes Vital Signs: Vital Signs (72 hours) 05/25/17 05/25/17 05/25/17 10:01 13:27 17:00 Temperature 36.7 C 36.5 C Heart Rate 83 70 79 Heart Rate [ Radial] Respiratory 16 16 16 Rate Blood Pressure 135/85 H 152/81 H 140/73 H Blood Pressure [Right Brachial artery] O2 Saturation 96 99 97 05/25/17 17:24 Temperature 36.4 C L Heart Rate Heart Rate [ 76 Radial] Respiratory 18 Rate Blood Pressure Blood Pressure 130/81 H [Right Brachial artery] O2 Saturation 98 - Physical Exam General Appearance: positive: No acute distress, Alert. negative: Lethargic Eyes Bilateral: positive: Normal inspection, PERRL. negative: No lid inflammation, Conjunctivae nml ENT: positive: ENT inspection nml, Pharynx nml, No signs of dehydration. negative: Purulent nasal drainage, Pharyngeal erythema Neck: positive: Nml inspection, Thyroid nml, No JVD, Trachea midline. negative : Lymphadenopathy (R), Lymphadenopathy (L), Stiff neck, Swelling/bruising, Tracheal deviation Respiratory: positive: Chest non-tender, No respiratory distress, Rhonchi (at lower and middle lobe of left lung) Cardiovascular: positive: Regular rate & rhythm, No gallop, Systolic murmur. negative: Tachycardia, Bradycardia Peripheral Pulses: positive: 2+ Abdomen: positive: Non-tender, No organomegaly, Nml bowel sounds, No distention. negative: Tenderness, Guarding, Rebound Back: positive: Nml inspection. negative: CVA tenderness (R), CVA tenderness (L ) Skin: positive: Color nml, Warm, Dry, Skin rash (mild to modrate erythema at right lower extremity without warm or swelling) Extremities: positive: Non-tender. negative: Pedal edema, Calf tenderness, Mary Alice's sign/cords Neurologic/Psychiatric: positive: Oriented x3, Mood/affect nml, Slurred/abnml speech. negative: Motor nml, Facial droop, Depressed mood/affect Conclusion/Plan - Problem List (1) Pneumonia Conclusion/Plan: pt is room air with SO2 98%. no fever, chill or cough reported. vital sign unremarkable, WBC 5.0. CXR reveals increase in patchy lower lobe air space disease bilaterally. I ordered CT of chest. The result of CT reveal "interval improvement in left-sided infiltration. No new consolidation." Patient was discharged three days ago. Patient was treated for pneumonia and cellulitis. Patient is recommended by ER for in-patient services. pt is admitted on observation, continue home meds Levaquin PO for "interval improvement in left-sided infiltration. No new consolidation." Qualifiers: Pneumonia type: due to unspecified organism Laterality: bilateral Lung location: lower lobe of lung Qualified Code(s): J18.9 - Pneumonia, unspecified organism (2) Fall Conclusion/Plan: image studies reveal no fracture and soft tissue injury. pt complains mild pain at left knee and right hip. pain control fall precaution Qualifiers: Encounter type: initial encounter Qualified Code(s): W19.XXXA - Unspecified fall, initial encounter (3) Type II diabetes mellitus Conclusion/Plan: A1C 6.8, slide scale, ACHS (4) History of CHF (congestive heart failure) Conclusion/Plan: stable, continue home meds (5) HTN (hypertension) Conclusion/Plan: stable, continue home meds (6) Hyperlipidemia Conclusion/Plan: continue home meds simvastatin (7) Hypothyroid Conclusion/Plan: TSH, reconciliation of home meds (8) Depression Conclusion/Plan: stable, resume of home meds (9) DVT prophylaxis Conclusion/Plan: SCD with Lovenox - Lab Results Fish Bones: 05/25/17 11:01 05/25/17 11:01 Issues/Core Measures - Anticipated LOS Anticipated Stay Length: Less than 2 midnights
[2017-05-25 17:25] LABS: HEMOGLOBIN A1C 0.65 g/dL
--- NOTE | 2017-05-25 17:28 | CT Preliminary Report ---
Exam: CT Chest W/O IMPRESSION: Interval improvement in left-sided infiltrates. No new consolidation. [facility] SITE ID: [id number]
--- NOTE | 2017-05-25 17:31 | CT Report ---
EXAM: CT CHEST EXAM DATE: 05/25/2017 05:11 PM. CLINICAL HISTORY: Shortness of breathing. COMPARISONS: 05/21/2017. TECHNIQUE: Routine helical CT imaging was performed through the chest. IV contrast: None. Reconstruct ions: Coronal and sagittal. In accordance with CT protocol optimization, one or more of the following dose reduction techniques w ere utilized for this exam: automated exposure control, adjustment of mA and/or KV based on patient s ize, or use of iterative reconstructive technique. FINDINGS: Lungs/Pleura: The previously noted left-sided infiltrates have improved. Calcified granuloma in the r ight lower lobe is stable. No new consolidation, effusion, or pneumothorax is present. Mediastinum: Normal. No adenopathy or masses. The heart and great vessels are normal. Bones: Degenerative changes. Visualized Abdomen: Stable postoperative changes. Other: Stable pacemaker and port. IMPRESSION: Interval improvement in left-sided infiltrates. No new consolidation. [facility] Referring Provider Line: [phone] SITE ID: [id number]
[2017-05-25] MEDS: INSULIN ASPART 300 UNIT/3 ML PEN SUBQ SCH ×2 (17:32→21:40)
[2017-05-25] MEDS ORDERED: IOPAMIDOL-300 100 ML VIAL IVP ONE (17:33)
[2017-05-25] MEDS: oxyCODONE 5 MG TABLET PO PRN ×2 (19:49→23:57)
[2017-05-25] MEDS: SODIUM CHLORIDE FLUSH 0.9% 10 ML SYRINGE IVP SCH (21:41)
[2017-05-25] MEDS ORDERED: CEFEPIME 1 GM in SODIUM CHLORIDE 0.9% MINIBAG 100 ML IV SCH (22:00)
[2017-05-26] MEDS: SODIUM CHLORIDE FLUSH 0.9% 10 ML SYRINGE IVP PRN (06:11)
[2017-05-26] MEDS: SODIUM CHLORIDE FLUSH 0.9% 10 ML SYRINGE IVP SCH ×3 (06:11→21:37)
[2017-05-26 06:56] LABS: BASOPHILS # (AUTO) 0.1 10^3/uL (0.0-0.1); BASOPHILS % (AUTO) 0.9 %; EOSINOPHILS # (AUTO) 0.1 10^3/uL (0.0-0.7); EOSINOPHILS % (AUTO) 0.6 %; HCT - HEMATOCRIT 36.5 % (37.0-47.0); HGB - HEMOGLOBIN 12.1 g/dL (12.0-16.0); LYMPHOCYTES # (AUTO) 1.4 10^3/uL (1.5-3.5); MEAN CORPUSCULAR HEMOGLOBIN 30.9 pg (27.0-31.0); MEAN CORPUSCULAR HGB CONC 33.3 g/dL (32.0-36.0); MEAN CORPUSCULAR VOLUME 92.9 fL (81.0-99.0); MEAN PLATELET VOLUME 9.1 fL (7.9-10.8); MONOCYTES # (AUTO) 0.5 10^3/uL (0.0-1.0); MONOCYTES % (AUTO) 6.4 %; NEUTROPHILS # (AUTO) 6.3 10^3/uL (1.5-6.6); NEUTROPHILS % (AUTO) 75.1 %; NUCLEATED RED BLOOD CELLS AUTO 0.1 /100WBC; RED BLOOD COUNT 3.93 10^6/uL (4.20-5.40); UNCORRECTED WHITE BLOOD COUNT 8.4 x10^3/uL; WHITE BLOOD COUNT 8.4 x10^3/uL (4.8-10.8)
[2017-05-26 07:07] LABS: ALBUMIN/GLOBULIN RATIO 1.1 (1.0-2.2); BILIRUBIN,TOTAL 0.5 mg/dL (0.2-1.0); CALCIUM 8.3 mg/dL (8.5-10.3); CREATININE 0.7 mg/dL (0.4-1.0); MAGNESIUM 2.1 mg/dL (1.7-2.8); POTASSIUM 3.8 mmol/L (3.5-5.0); TOTAL PROTEIN 6.6 g/dL (6.7-8.2)
[2017-05-26] MEDS: oxyCODONE 5 MG TABLET PO PRN ×4 (08:23→21:22)
[2017-05-26] MEDS: levoFLOXacin 250 MG TABLET PO SCH (08:23)
[2017-05-26] MEDS: POLYETHYLENE GLYCOL 3350 17 GM PACKET PO SCH (08:23)
[2017-05-26] MEDS: ENOXAPARIN 40 MG/0.4 ML SYRINGE SUBQ SCH (08:23)
[2017-05-26] MEDS: FAMOTIDINE 20 MG TABLET PO SCH (08:24)
[2017-05-26] MEDS: INSULIN ASPART 300 UNIT/3 ML PEN SUBQ SCH ×4 (08:25→21:23)
[2017-05-26] MEDS ORDERED: NITROGLYCERIN SL 0.4 MG TABLET SL PRN (08:39)
[2017-05-26] MEDS ORDERED: CHLORPHENIRAMINE MALEATE 4 MG PO PRN (08:39)
[2017-05-26] MEDS ORDERED: DOCUSATE SODIUM 100 MG CAPSULE PO PRN (08:39)
[2017-05-26] MEDS ORDERED: AZITHROMYCIN 250 MG TABLET PO SCH (09:00)
[2017-05-26] MEDS: LISINOPRIL 5 MG TABLET PO SCH (09:56)
[2017-05-26] MEDS: BACLOFEN 10 MG TABLET PO PRN (09:57)
[2017-05-26] MEDS: LEVOTHYROXINE 75 MCG TABLET PO SCH (09:57)
[2017-05-26] MEDS: POTASSIUM CHLORIDE 20 MEQ TABLET PO SCH (09:58)
[2017-05-26] MEDS: FLUTICASONE NASAL SPRAY NAS SCH (10:03)
[2017-05-26] MEDS: OXYBUTYNIN 5MG TABLET PO SCH ×2 (11:09→21:23)
[2017-05-26] MEDS: CITALOPRAM 10 MG TABLET PO SCH (11:11)
[2017-05-26] MEDS: FUROSEMIDE 40 MG TABLET PO SCH (11:12)
--- NOTE | 2017-05-26 12:28 | PROVIDER PROGRESS NOTE ---
Subjective - Prog Note Date Prog Note Date: 05/26/17 - Subjective Pt reports feeling: Improved Subjective: pt report she feel great. no fever, chill, cough, shortness of breathing, chest pain reported. Pt did express vision hallucination at this morning when I assess pt. Pt state she saw lots of flower in her hand, and the room ceiling is falling down to her. There is no flower at her hand and the hospital room ceiling is not falling down. Current Medications - Current Medications Current Medications: Active Medications Acetaminophen (Tylenol) 650 mg PO Q4HR PRN PRN Reason: Pain 1 to 4 Atorvastatin Calcium (Lipitor) 5 mg PO QPM DEDRICK Baclofen (Lioresal) 20 mg PO QID PRN PRN Reason: Spasms Last Admin: 05/26/17 09:57 Dose: 20 mg Citalopram Hydrobromide (Celexa) 20 mg PO DAILY [facility] Last Admin: 05/26/17 11:11 Dose: 20 mg Diphenhydramine HCl (Benadryl) 25 mg PO QID PRN PRN Reason: Allergy Symptoms Enoxaparin Sodium (Lovenox) 40 mg SUBQ DAILY [facility] Last Admin: 05/26/17 08:23 Dose: 40 mg Famotidine (Pepcid) 20 mg PO DAILY [facility] Last Admin: 05/26/17 08:24 Dose: 20 mg Fluticasone Propionate (Flonase) 1 sprays RADHA DAILY [facility] Last Admin: 05/26/17 10:03 Dose: 1 sprays Furosemide (Lasix) 40 mg PO DAILY [facility] Last Admin: 05/26/17 11:12 Dose: 40 mg Heparin Sodium (Beef Lung) () 30 - 50 unit IVP Q8HR [facility] Stop: 06/24/17 21:09 Last Admin: 05/26/17 06:11 Dose: 50 unit Ibuprofen (Motrin) 800 mg PO TID PRN PRN Reason: PAIN Insulin Aspart (Novolog) 1 - 5 unit SUBQ 0800,1200,1700,2100 [facility] PRN Reason: Protocol Last Admin: 05/26/17 11:45 Dose: 1 unit Levofloxacin (Levaquin) 500 mg PO DAILY [facility] Last Admin: 05/26/17 08:23 Dose: 500 mg Levothyroxine Sodium (Synthroid) 75 mcg PO QDAC [facility] Last Admin: 05/26/17 09:57 Dose: 75 mcg Lisinopril (Zestril) 10 mg PO DAILY [facility] Last Admin: 05/26/17 09:56 Dose: 10 mg Nitroglycerin (Nitrostat) 0.4 mg SL Q5M PRN PRN Reason: Chest Pain Non-Formulary Medication (Dextroamphetamine/Amphetamine [Dextroamp-Amphetamin 30 Mg Tab]) 30 mg PO BID [facility] Ondansetron HCl (Zofran Inj) 4 mg IVP Q6HR PRN PRN Reason: Nausea / Vomiting Oxybutynin Chloride (Ditropan) 5 mg PO BID [facility] Last Admin: 05/26/17 11:09 Dose: 5 mg Oxycodone HCl (Roxicodone) 20 mg PO Q4H PRN PRN Reason: PAIN Last Admin: 05/26/17 11:02 Dose: 20 mg Polyethylene Glycol (Miralax) 17 gm PO DAILY [facility] Last Admin: 05/26/17 08:23 Dose: 17 gm Potassium Chloride (K-Dur) 20 meq PO DAILYWM [facility] Last Admin: 05/26/17 09:58 Dose: 20 meq Sodium Chloride (Normal Saline Flush 0.9%) 10 ml IVP PRN PRN PRN Reason: NEEDED PER PROVIDER ORDERS Last Admin: 05/26/17 06:11 Dose: 20 ml Sodium Chloride (Normal Saline Flush 0.9%) 10 ml IVP Q8HR [facility] Last Admin: 05/26/17 06:11 Dose: 10 ml Levothyroxine Sodium [Synthroid] 75 mcg PO QDAC 01/30/13 Citalopram [CeleXA] 20 mg PO DAILY 10/30/14 Simvastatin [Zocor] 5 mg PO QPM 10/30/14 Lisinopril 10 mg PO DAILY 06/28/15 Baclofen 20 mg PO QID PRN 11/23/16 Furosemide [Lasix] 40 mg PO DAILY 11/23/16 Oxybutynin [Ditropan] 5 mg PO BID 11/23/16 Potassium Chloride [Klor-Con M20] 20 meq PO DAILYWM 11/23/16 Chlorpheniramine Maleate [Chlorhist] 4 mg PO QID PRN 05/19/17 Dextroamphetamine/Amphetamine [Dextroamp-Amphetamin 30 mg Tab] 30 mg PO BID Docusate Sodium 100 mg PO BID PRN 05/19/17 diphenhydrAMINE [Benadryl] 25 mg PO QID PRN 05/19/17 Fluticasone [Flonase] 1 sprays RADHA DAILY 05/26/17 Ibuprofen [Ibuprofen] 800 mg PO TID PRN 05/26/17 Nitroglycerin [Nitrostat] 0.4 mg PO Q5M PRN 05/26/17 oxyCODONE [Roxicodone] 20 mg PO Q4H PRN MDD 120MG 05/26/17 Objective - Vital Signs/Intake & Output Reviewed Vital Signs: Yes Vital Signs: Vital Signs x48h Temp Pulse Resp BP BP Pulse Ox 05/26/17 07:51 36.4 C L 64 18 139/70 H 97 05/26/17 05:28 36.7 C 66 18 139/77 H 96 Intake & Output: Intake & Output 05/23/17 05/24/17 05/25/17 05/26/17 23:59 23:59 23:59 23:59 Intake Total 200 390 Balance 200 390 - Objective General Appearance: positive: No acute distress, Alert. negative: Lethargic Eyes Bilateral: positive: Normal inspection, PERRL. negative: No lid inflammation, Conjunctivae nml ENT: positive: ENT inspection nml, Pharynx nml, No signs of dehydration. negative: Purulent nasal drainage, Pharyngeal erythema Neck: positive: Nml inspection, Thyroid nml, Trachea midline. negative: Thyromegaly, Lymphadenopathy (R), Lymphadenopathy (L), Stiff neck, Swelling/ bruising, Tracheal deviation Respiratory: positive: Chest non-tender, No respiratory distress, Breath sounds nml. negative: Wheezes, Rales, Rhonchi Cardiovascular: positive: Regular rate & rhythm, No murmur, No gallop. negative : Tachycardia, Bradycardia, Systolic murmur, Diastolic murmur Peripheral Pulses: 2+ Radial (R), 2+ Radial (L), 2+ Dorsalis pedis (R), 2+ Dorsalis pedis (L) Abdomen: positive: Non-tender, Nml bowel sounds, No distention. negative: Tenderness, Guarding, Rebound Back: positive: Nml inspection. negative: CVA tenderness (R), CVA tenderness (L ) Skin: positive: Color nml, Warm, Dry. negative: Cyanosis, Diaphoresis, Decubitus Extremities: positive: Non-tender, Other (right upper and lower extremites paralysis from previous stroke). negative: Pedal edema, Calf tenderness, Mary Alice' s sign/cords Neurologic/Psychiatric: positive: Disoriented to time, Slurred/abnml speech. negative: Disoriented to person, Disoriented to place, Facial droop - Lab Results Fish Bones: 05/26/17 06:15 05/26/17 06:15 Other Labs: Lab Results x24hrs 05/26/17 05/26/17 05/26/17 Range/Units 06:15 06:15 06:15 WBC 8.4 (4.8-10.8) x10^3/uL RBC 3.93 L (4.20-5.40) 10^6/uL Hgb 12.1 (12.0-16.0) g/dL Hct 36.5 L (37.0-47.0) % MCV 92.9 (81.0-99.0) fL MCH 30.9 (27.0-31.0) pg MCHC 33.3 (32.0-36.0) g/dL RDW 14.0 (12.0-15.0) % Plt Count 231 (130-450) 10^3/uL MPV 9.1 (7.9-10.8) fL Neut # 6.3 (1.5-6.6) 10^3/uL Lymph # 1.4 L (1.5-3.5) 10^3/uL [place] # 0.5 (0.0-1.0) 10^3/uL Eos # 0.1 (0.0-0.7) 10^3/uL Baso # 0.1 (0.0-0.1) 10^3/uL Absolute Nucleated RBC 0.01 x10^3/uL Nucleated RBCs 0.1 /100WBC Sodium 138 (135-145) mmol/L Potassium 3.8 (3.5-5.0) mmol/L Chloride 101 (101-111) mmol/L Carbon Dioxide 28 (21-32) mmol/L Anion Gap 9.0 (6-13) BUN 10 (6-20) mg/dL Creatinine 0.7 (0.4-1.0) mg/dL Estimated GFR (MDRD) 84 L (>89) Glucose 146 H (70-100) mg/dL Calcium 8.3 L (8.5-10.3) mg/dL Magnesium 2.1 (1.7-2.8) mg/dL Total Bilirubin 0.5 (0.2-1.0) mg/dL AST 33 (10-42) IU/L ALT 30 (10-60) IU/L Alkaline Phosphatase 94 (42-121) IU/L Total Protein 6.6 L (6.7-8.2) g/dL Albumin 3.5 (3.2-5.5) g/dL Globulin 3.1 (2.1-4.2) g/dL Albumin/Globulin Ratio 1.1 (1.0-2.2) TSH 2.46 (0.34-5.60) uIU/mL Assessment/Plan - Problem List (1) Pneumonia Impression: (1) vision hallucination pt appear vision hallucination at the morning when I assess pt. Pt state she saw the flower at her hand, and saw the room ceiling was falling down. There is no this thing happened. I believe patient need psychiatrist to her. (2) Pneumonia Conclusion/Plan: pt is room air with SO2 97% today. no fever, chill, cough, shortness of breathing, or chest pain reported. WBC 8.4. The result of CT reveal "interval improvement in left-sided infiltration. No new consolidation." Patient was discharged three days ago from this hospital. patient continued on Levaquin on home medication. Today is the last day for this medication on home medication list. Clinically patient is not indicated to have pneumonia, and CT of chest reveals interval improvement in left-sided infiltration, No new consolidation. Qualifiers: Pneumonia type: due to unspecified organism Laterality: bilateral Lung location: lower lobe of lung Qualified Code(s): J18.9 - Pneumonia, unspecified organism (3) Fall Conclusion/Plan: image studies reveal no fracture and soft tissue injury. pt complains mild pain at left knee and right hip. pain control fall precaution Qualifiers: Encounter type: initial encounter Qualified Code(s): W19.XXXA - Unspecified fall, initial encounter (4) Type II diabetes mellitus Conclusion/Plan: A1C 6.8, slide scale, ACHS, glucose in the good control (5) History of CHF (congestive heart failure) Conclusion/Plan: stable, continue home meds (6) HTN (hypertension) Conclusion/Plan: stable, continue home meds (7) Hyperlipidemia Conclusion/Plan: stable, continue home meds simvastatin (8) Hypothyroid Conclusion/Plan: TSH 2.46 normal, reconciliation of home meds (9) Depression Conclusion/Plan: stable, resume of home meds (10) DVT prophylaxis Conclusion/Plan: SCD with Lovenox Qualifiers: Pneumonia type: due to unspecified organism Laterality: bilateral Lung location: lower lobe of lung Qualified Code(s): J18.9 - Pneumonia, unspecified organism (2) Fall Qualifiers: Encounter type: initial encounter Qualified Code(s): W19.XXXA - Unspecified fall, initial encounter
[2017-05-26] MEDS: AMPHETAMINE PO SCH (16:56)
[2017-05-26] MEDS: DEXTROAMPHETAMINE PO SCH (16:56)
[2017-05-26] MEDS: ATORVASTATIN 10 MG TABLET PO SCH (21:21)
[2017-05-26] MEDS: SENNA 8.6 MG TABLET PO SCH (21:22)
[2017-05-26] MEDS: DOCUSATE SODIUM 250 MG CAPSULE PO SCH (21:23)
[2017-05-26] MEDS: diphenhydrAMINE 25 MG CAPSULE PO PRN (21:23)
[2017-05-27] MEDS: oxyCODONE 5 MG TABLET PO PRN ×2 (01:59→22:18)
[2017-05-27] MEDS: SODIUM CHLORIDE FLUSH 0.9% 10 ML SYRINGE IVP SCH ×3 (05:09→21:38)
[2017-05-27] MEDS: LEVOTHYROXINE 75 MCG TABLET PO SCH (06:05)
[2017-05-27] MEDS: diphenhydrAMINE 25 MG CAPSULE PO PRN (06:05)
[2017-05-27 06:16] LABS: BASOPHILS # (AUTO) 0.1 10^3/uL (0.0-0.1); BASOPHILS % (AUTO) 1.3 %; EOSINOPHILS # (AUTO) 0.1 10^3/uL (0.0-0.7); EOSINOPHILS % (AUTO) 1.4 %; HCT - HEMATOCRIT 38.3 % (37.0-47.0); HGB - HEMOGLOBIN 12.7 g/dL (12.0-16.0); LYMPHOCYTES # (AUTO) 2.6 10^3/uL (1.5-3.5); LYMPHOCYTES % (AUTO) 27.9 %; MEAN CORPUSCULAR HEMOGLOBIN 30.9 pg (27.0-31.0); MEAN CORPUSCULAR HGB CONC 33.1 g/dL (32.0-36.0); MEAN CORPUSCULAR VOLUME 93.5 fL (81.0-99.0); MEAN PLATELET VOLUME 9.1 fL (7.9-10.8); MONOCYTES # (AUTO) 1.1 10^3/uL (0.0-1.0); MONOCYTES % (AUTO) 11.5 %; NEUTROPHILS # (AUTO) 5.5 10^3/uL (1.5-6.6); NEUTROPHILS % (AUTO) 57.9 %; NUCLEATED RED BLOOD CELLS AUTO 0.1 /100WBC; RED CELL DISTRIBUTION WIDTH 14.1 % (12.0-15.0); UNCORRECTED WHITE BLOOD COUNT 9.5 x10^3/uL; WHITE BLOOD COUNT 9.5 x10^3/uL (4.8-10.8)
[2017-05-27 06:20] LABS: ALBUMIN/GLOBULIN RATIO 1.1 (1.0-2.2); BILIRUBIN,TOTAL 0.7 mg/dL (0.2-1.0); CREATININE 1.3 mg/dL (0.4-1.0); POTASSIUM 3.7 mmol/L (3.5-5.0); TOTAL PROTEIN 6.7 g/dL (6.7-8.2)
[2017-05-27] MEDS: FUROSEMIDE 40 MG TABLET PO SCH (08:51)
[2017-05-27] MEDS: SODIUM CHLORIDE 0.9% 1,000 ML IV SCH ×2 (08:51→20:50)
[2017-05-27] MEDS: INSULIN ASPART 300 UNIT/3 ML PEN SUBQ SCH ×4 (08:52→22:23)
[2017-05-27] MEDS: AMPHETAMINE PO SCH ×2 (08:52→17:43)
[2017-05-27] MEDS: DEXTROAMPHETAMINE PO SCH ×2 (08:52→17:43)
[2017-05-27] MEDS: FLUTICASONE NASAL SPRAY NAS SCH (08:52)
[2017-05-27] MEDS: CITALOPRAM 10 MG TABLET PO SCH (08:53)
[2017-05-27] MEDS: SENNA 8.6 MG TABLET PO SCH (08:53)
[2017-05-27] MEDS: levoFLOXacin 250 MG TABLET PO SCH (08:53)
[2017-05-27] MEDS: DOCUSATE SODIUM 250 MG CAPSULE PO SCH (08:53)
[2017-05-27] MEDS: OXYBUTYNIN 5MG TABLET PO SCH ×2 (08:53→22:23)
[2017-05-27] MEDS: POTASSIUM CHLORIDE 20 MEQ TABLET PO SCH (08:53)
[2017-05-27] MEDS: LISINOPRIL 5 MG TABLET PO SCH (08:54)
--- NOTE | 2017-05-27 09:03 | PROVIDER PROGRESS NOTE ---
Subjective - Prog Note Date Prog Note Date: 05/27/17 - Subjective Pt reports feeling: Improved Subjective: pt report she feel great. Pt has still vision hallucination. She tries to eat something by using her hand to put something in her mouth. There is nothing in her hand. When asking if she feel hungry, she denies. Current Medications - Current Medications Current Medications: Active Medications Acetaminophen (Tylenol) 650 mg PO Q4HR PRN PRN Reason: Pain 1 to 4 Atorvastatin Calcium (Lipitor) 5 mg PO QPM [facility] Last Admin: 05/26/17 21:21 Dose: 5 mg Baclofen (Lioresal) 20 mg PO QID PRN PRN Reason: Spasms Last Admin: 05/26/17 09:57 Dose: 20 mg Citalopram Hydrobromide (Celexa) 20 mg PO DAILY [facility] Last Admin: 05/27/17 08:53 Dose: 20 mg Diphenhydramine HCl (Benadryl) 25 mg PO QID PRN PRN Reason: Allergy Symptoms Last Admin: 05/27/17 06:05 Dose: 25 mg Docusate Sodium (Colace 250mg Capsule) 250 - 500 mg PO DAILY [facility] Last Admin: 05/27/17 08:53 Dose: 250 mg Enoxaparin Sodium (Lovenox) 40 mg SUBQ DAILY [facility] Last Admin: 05/26/17 08:23 Dose: 40 mg Famotidine (Pepcid) 20 mg PO DAILY [facility] Last Admin: 05/26/17 08:24 Dose: 20 mg Fluticasone Propionate (Flonase) 1 sprays RADHA DAILY [facility] Last Admin: 05/27/17 08:52 Dose: 2 sprays Furosemide (Lasix) 40 mg PO DAILY [facility] Last Admin: 05/27/17 08:51 Dose: 40 mg Heparin Sodium (Beef Lung) () 30 - 50 unit IVP Q8HR DEDRICK Stop: 06/24/17 21:09 Last Admin: 05/27/17 05:08 Dose: 50 unit Sodium Chloride (Normal Saline 0.9%) 1,000 mls @ 100 mls/hr IV .Q10H [facility] Last Admin: 05/27/17 08:51 Dose: 100 mls/hr Ibuprofen (Motrin) 800 mg PO TID PRN PRN Reason: PAIN Insulin Aspart (Novolog) 1 - 5 unit SUBQ 0800,1200,1700,2100 [facility] PRN Reason: Protocol Last Admin: 05/27/17 08:52 Dose: 1 unit Levofloxacin (Levaquin) 500 mg PO DAILY [facility] Last Admin: 05/27/17 08:53 Dose: 500 mg Levothyroxine Sodium (Synthroid) 75 mcg PO QDAC [facility] Last Admin: 05/27/17 06:05 Dose: 75 mcg Lisinopril (Zestril) 10 mg PO DAILY [facility] Last Admin: 05/27/17 08:54 Dose: 10 mg Nitroglycerin (Nitrostat) 0.4 mg SL Q5M PRN PRN Reason: Chest Pain Ondansetron HCl (Zofran Inj) 4 mg IVP Q6HR PRN PRN Reason: Nausea / Vomiting Oxybutynin Chloride (Ditropan) 5 mg PO BID [facility] Last Admin: 05/27/17 08:53 Dose: 5 mg Oxycodone HCl (Roxicodone) 20 mg PO Q4H PRN PRN Reason: PAIN Last Admin: 05/27/17 01:59 Dose: 20 mg Dextroamphetamine/Amphetamine [ Dextroamp-Amphetamin ] 30 Mg Tab 1 each PO BIDWM [facility] Last Admin: 05/27/17 08:52 Dose: 1 each Polyethylene Glycol (Miralax) 17 gm PO DAILY [facility] Last Admin: 05/26/17 08:23 Dose: 17 gm Potassium Chloride (K-Dur) 20 meq PO DAILYWM [facility] Last Admin: 05/27/17 08:53 Dose: 20 meq Senna (Senokot) 8.6 - 17.2 mg PO DAILY [facility] Last Admin: 05/27/17 08:53 Dose: 8.6 mg Sodium Chloride (Normal Saline Flush 0.9%) 10 ml IVP PRN PRN PRN Reason: NEEDED PER PROVIDER ORDERS Last Admin: 05/26/17 06:11 Dose: 20 ml Sodium Chloride (Normal Saline Flush 0.9%) 10 ml IVP Q8HR [facility] Last Admin: 05/27/17 05:09 Dose: 30 ml Levothyroxine Sodium [Synthroid] 75 mcg PO QDAC 01/30/13 Citalopram [CeleXA] 20 mg PO DAILY 10/30/14 Simvastatin [Zocor] 5 mg PO QPM 10/30/14 Lisinopril 10 mg PO DAILY 06/28/15 Baclofen 20 mg PO QID PRN 11/23/16 Furosemide [Lasix] 40 mg PO DAILY 11/23/16 Oxybutynin [Ditropan] 5 mg PO BID 11/23/16 Potassium Chloride [Klor-Con M20] 20 meq PO DAILYWM 11/23/16 Chlorpheniramine Maleate [Chlorhist] 4 mg PO QID PRN 05/19/17 Dextroamphetamine/Amphetamine [Dextroamp-Amphetamin 30 mg Tab] 30 mg PO BID Docusate Sodium 100 mg PO BID PRN 05/19/17 diphenhydrAMINE [Benadryl] 25 mg PO QID PRN 05/19/17 Fluticasone [Flonase] 1 sprays RADHA DAILY 05/26/17 Ibuprofen [Ibuprofen] 800 mg PO TID PRN 05/26/17 Nitroglycerin [Nitrostat] 0.4 mg PO Q5M PRN 05/26/17 oxyCODONE [Roxicodone] 20 mg PO Q4H PRN MDD 120MG 05/26/17 Objective - Vital Signs/Intake & Output Vital Signs: Vital Signs x48h Temp Pulse Resp BP Pulse Ox 05/27/17 07:34 70 14 133/59 H 94 05/27/17 03:03 37 C 78 18 123/48 L 95 Intake & Output: Intake & Output 05/24/17 05/25/17 05/26/17 05/27/17 23:59 23:59 23:59 23:59 Intake Total 150 200 Balance 150 200 - Objective General Appearance: positive: No acute distress, Alert. negative: Lethargic Eyes Bilateral: positive: Normal inspection, PERRL. negative: No lid inflammation, Conjunctivae nml ENT: positive: ENT inspection nml, Pharynx nml, Dry mucous membranes. negative : Purulent nasal drainage, Pharyngeal erythema Neck: positive: Nml inspection, Thyroid nml, Trachea midline. negative: Thyromegaly, Lymphadenopathy (R), Lymphadenopathy (L), Stiff neck, Swelling/ bruising, Tracheal deviation Respiratory: positive: Chest non-tender, No respiratory distress, Breath sounds nml. negative: Wheezes, Rales, Rhonchi Cardiovascular: positive: Regular rate & rhythm, No murmur, No gallop. negative : Tachycardia, Bradycardia, Systolic murmur, Diastolic murmur Peripheral Pulses: 2+ Radial (R), 2+ Radial (L), 2+ Dorsalis pedis (R), 2+ Dorsalis pedis (L) Abdomen: positive: Non-tender, Nml bowel sounds, No distention. negative: Tenderness, Guarding, Rebound Back: positive: Nml inspection. negative: CVA tenderness (R), CVA tenderness (L ) Skin: positive: Color nml, Warm, Dry. negative: Cyanosis, Diaphoresis, Pallor Extremities: positive: Non-tender, Other (right up and lower extremities parelysis from previous stroke deficiency). negative: Pedal edema, Calf tenderness, Mary Alice's sign/cords Neurologic/Psychiatric: positive: Sensation nml, Disoriented to time, Slurred/ abnml speech. negative: Disoriented to person, Disoriented to place, Facial droop - Lab Results Fish Bones: 05/27/17 05:18 05/27/17 05:18 Other Labs: Lab Results x24hrs 05/27/17 05/27/17 Range/Units 05:18 05:18 WBC 9.5 (4.8-10.8) x10^3/uL RBC 4.10 L (4.20-5.40) 10^6/uL Hgb 12.7 (12.0-16.0) g/dL Hct 38.3 (37.0-47.0) % MCV 93.5 (81.0-99.0) fL MCH 30.9 (27.0-31.0) pg MCHC 33.1 (32.0-36.0) g/dL RDW 14.1 (12.0-15.0) % Plt Count 266 (130-450) 10^3/uL MPV 9.1 (7.9-10.8) fL Neut # 5.5 (1.5-6.6) 10^3/uL Lymph # 2.6 (1.5-3.5) 10^3/uL [place] # 1.1 H (0.0-1.0) 10^3/uL Eos # 0.1 (0.0-0.7) 10^3/uL Baso # 0.1 (0.0-0.1) 10^3/uL Absolute Nucleated RBC 0.01 x10^3/uL Nucleated RBCs 0.1 /100WBC Sodium 140 (135-145) mmol/L Potassium 3.7 (3.5-5.0) mmol/L Chloride 100 L (101-111) mmol/L Carbon Dioxide 28 (21-32) mmol/L Anion Gap 12.0 (6-13) BUN 16 (6-20) mg/dL Creatinine 1.3 H (0.4-1.0) mg/dL Estimated GFR (MDRD) 41 L (>89) Glucose 127 H (70-100) mg/dL Calcium 9.0 (8.5-10.3) mg/dL Total Bilirubin 0.7 (0.2-1.0) mg/dL AST 40 (10-42) IU/L ALT 31 (10-60) IU/L Alkaline Phosphatase 94 (42-121) IU/L Total Protein 6.7 (6.7-8.2) g/dL Albumin 3.5 (3.2-5.5) g/dL Globulin 3.2 (2.1-4.2) g/dL Albumin/Globulin Ratio 1.1 (1.0-2.2) Assessment/Plan - Problem List (1) Pneumonia Impression: (1) vision hallucination pt has still vision hallucination today morning, pt is waiting for psychiatric bed. pt appear vision hallucination at the morning when I assess pt. Pt state she saw the flower at her hand, and saw the room ceiling was falling down. There is no this thing happened. I believe patient need psychiatrist to her. (2) Pneumonia Conclusion/Plan: as yesterday, it appears no pulmono/cardiac distress today. pt is room air with SO2 94% today. no fever, chill, cough, shortness of breathing, or chest pain reported. WBC 9.5. pt is room air with SO2 97% today. no fever, chill, cough, shortness of breathing, or chest pain reported. WBC 8.4. The result of CT reveal "interval improvement in left-sided infiltration. No new consolidation." Patient was discharged three days ago from this hospital. patient continued on Levaquin on home medication. Today is the last day for this medication on home medication list. Clinically patient is not indicated to have pneumonia, and CT of chest reveals interval improvement in left-sided infiltration, No new consolidation. Qualifiers: Pneumonia type: due to unspecified organism Laterality: bilateral Lung location: lower lobe of lung Qualified Code(s): J18.9 - Pneumonia, unspecified organism (3) Fall Conclusion/Plan: stable, no fall in hospital reported, image studies reveal no fracture and soft tissue injury. pt complains mild pain at left knee and right hip. pain control fall precaution Qualifiers: Encounter type: initial encounter Qualified Code(s): W19.XXXA - Unspecified fall, initial encounter (4) Type II diabetes mellitus Conclusion/Plan: stable, continue current treatment A1C 6.8, slide scale, ACHS, glucose in the good control (5) History of CHF (congestive heart failure) Conclusion/Plan: mild to moderate hydration for dehydration. after stable, will stop the IVF stable, continue home meds (6) HTN (hypertension) Conclusion/Plan: stable, continue home meds (7) Hyperlipidemia Conclusion/Plan: stable, continue home meds simvastatin (8) Hypothyroid Conclusion/Plan: TSH 2.46 normal, reconciliation of home meds (9) Depression Conclusion/Plan: stable, resume of home meds (10) DVT prophylaxis Conclusion/Plan: SCD with Lovenox Qualifiers: Pneumonia type: due to unspecified organism Laterality: bilateral Lung location: lower lobe of lung Qualified Code(s): J18.9 - Pneumonia, unspecified organism (11) dehydration pt has slight elevated BUN and creatinine, NS IVF, hydration to pt. Qualifiers: Pneumonia type: due to unspecified organism Laterality: bilateral Lung location: lower lobe of lung Qualified Code(s): J18.9 - Pneumonia, unspecified organism (2) Fall Qualifiers: Encounter type: initial encounter Qualified Code(s): W19.XXXA - Unspecified fall, initial encounter
[2017-05-27] MEDS: FAMOTIDINE 20 MG TABLET PO SCH (09:05)
[2017-05-27] MEDS: ENOXAPARIN 40 MG/0.4 ML SYRINGE SUBQ SCH (09:05)
[2017-05-27] MEDS ORDERED: DEXTROAMPHETAMINE PO SCH (21:00)
[2017-05-27] MEDS ORDERED: AMPHETAMINE PO SCH (21:00)
[2017-05-27] MEDS ORDERED: [UNRECOGNIZED DRUG - OTHER] PO SCH (21:00)
[2017-05-27] MEDS: ATORVASTATIN 10 MG TABLET PO SCH (22:23)
[2017-05-28] MEDS: diphenhydrAMINE 25 MG CAPSULE PO PRN ×2 (03:19→08:19)
[2017-05-28] MEDS: SODIUM CHLORIDE FLUSH 0.9% 10 ML SYRINGE IVP SCH ×3 (05:11→21:16)
[2017-05-28 05:12] LABS: BASOPHILS # (AUTO) 0.1 10^3/uL (0.0-0.1); BASOPHILS % (AUTO) 1.2 %; EOSINOPHILS # (AUTO) 0.1 10^3/uL (0.0-0.7); EOSINOPHILS % (AUTO) 1.1 %; HCT - HEMATOCRIT 37.6 % (37.0-47.0); HGB - HEMOGLOBIN 12.2 g/dL (12.0-16.0); LYMPHOCYTES # (AUTO) 2.1 10^3/uL (1.5-3.5); LYMPHOCYTES % (AUTO) 18.1 %; MEAN CORPUSCULAR HEMOGLOBIN 30.3 pg (27.0-31.0); MEAN CORPUSCULAR HGB CONC 32.5 g/dL (32.0-36.0); MEAN CORPUSCULAR VOLUME 93.1 fL (81.0-99.0); MEAN PLATELET VOLUME 8.8 fL (7.9-10.8); MONOCYTES # (AUTO) 0.8 10^3/uL (0.0-1.0); MONOCYTES % (AUTO) 6.9 %; NEUTROPHILS # (AUTO) 8.5 10^3/uL (1.5-6.6); NEUTROPHILS % (AUTO) 72.7 %; RED BLOOD COUNT 4.04 10^6/uL (4.20-5.40); RED CELL DISTRIBUTION WIDTH 13.6 % (12.0-15.0); UNCORRECTED WHITE BLOOD COUNT 11.7 x10^3/uL; WHITE BLOOD COUNT 11.7 x10^3/uL (4.8-10.8)
[2017-05-28 05:22] LABS: ALBUMIN/GLOBULIN RATIO 1.3 (1.0-2.2); BILIRUBIN,TOTAL 0.7 mg/dL (0.2-1.0); CALCIUM 8.2 mg/dL (8.5-10.3); CREATININE 0.9 mg/dL (0.4-1.0); POTASSIUM 3.5 mmol/L (3.5-5.0); TOTAL PROTEIN 6.3 g/dL (6.7-8.2)
[2017-05-28] MEDS: LEVOTHYROXINE 75 MCG TABLET PO SCH (06:20)
[2017-05-28] MEDS: SODIUM CHLORIDE 0.9% 1,000 ML IV SCH ×2 (06:27→21:13)
[2017-05-28] MEDS: ENOXAPARIN 40 MG/0.4 ML SYRINGE SUBQ SCH (08:18)
[2017-05-28] MEDS: POLYETHYLENE GLYCOL 3350 17 GM PACKET PO SCH ×2 (08:18→10:22)
[2017-05-28] MEDS: DEXTROAMPHETAMINE PO SCH ×2 (08:19→19:25)
[2017-05-28] MEDS: CITALOPRAM 10 MG TABLET PO SCH (08:19)
[2017-05-28] MEDS: SENNA 8.6 MG TABLET PO SCH ×3 (08:19→10:27)
[2017-05-28] MEDS: DOCUSATE SODIUM 250 MG CAPSULE PO SCH (08:19)
[2017-05-28] MEDS: POTASSIUM CHLORIDE 20 MEQ TABLET PO SCH (08:19)
[2017-05-28] MEDS: AMPHETAMINE PO SCH ×2 (08:19→19:25)
[2017-05-28] MEDS: OXYBUTYNIN 5MG TABLET PO SCH ×3 (08:19→21:14)
[2017-05-28] MEDS: FUROSEMIDE 40 MG TABLET PO SCH (08:20)
[2017-05-28] MEDS: FAMOTIDINE 20 MG TABLET PO SCH (08:20)
[2017-05-28] MEDS: oxyCODONE 5 MG TABLET PO PRN (08:20)
[2017-05-28] MEDS: LISINOPRIL 5 MG TABLET PO SCH (08:20)
[2017-05-28] MEDS: INSULIN ASPART 300 UNIT/3 ML PEN SUBQ SCH ×4 (08:21→21:17)
[2017-05-28] MEDS: FLUTICASONE NASAL SPRAY NAS SCH ×2 (08:21→10:21)
[2017-05-28] MEDS ORDERED: OLANZapine ODT 5 MG TABLET TL ONE (08:30)
[2017-05-28] MEDS: PIPERACILLIN/TAZOBACTAM 3.375 GM in SODIUM CHLORIDE 0.9% MINIBAG 100 ML IV SCH ×2 (08:47→16:42)
--- NOTE | 2017-05-28 09:30 | PROVIDER PROGRESS NOTE ---
Subjective - Prog Note Date Prog Note Date: 05/28/17 - Subjective Pt reports feeling: Worse Subjective: today pt is agitated, do not understand what she says. Current Medications - Current Medications Current Medications: Active Medications Acetaminophen (Tylenol) 650 mg PO Q4HR PRN PRN Reason: Pain 1 to 4 Atorvastatin Calcium (Lipitor) 5 mg PO QPM [facility] Last Admin: 05/27/17 22:23 Dose: 5 mg Baclofen (Lioresal) 20 mg PO QID PRN PRN Reason: Spasms Last Admin: 05/26/17 09:57 Dose: 20 mg Citalopram Hydrobromide (Celexa) 20 mg PO DAILY [facility] Last Admin: 05/28/17 08:19 Dose: 20 mg Diphenhydramine HCl (Benadryl) 25 mg PO QID PRN PRN Reason: Allergy Symptoms Last Admin: 05/28/17 08:19 Dose: 25 mg Docusate Sodium (Colace 250mg Capsule) 250 - 500 mg PO DAILY [facility] Last Admin: 05/28/17 08:19 Dose: 250 mg Enoxaparin Sodium (Lovenox) 40 mg SUBQ DAILY [facility] Last Admin: 05/28/17 08:18 Dose: 40 mg Famotidine (Pepcid) 20 mg PO DAILY [facility] Last Admin: 05/28/17 08:20 Dose: 20 mg Fluticasone Propionate (Flonase) 1 sprays RADHA DAILY [facility] Last Admin: 05/28/17 08:21 Dose: 1 sprays Furosemide (Lasix) 40 mg PO DAILY [facility] Last Admin: 05/28/17 08:20 Dose: 40 mg Heparin Sodium (Beef Lung) () 30 - 50 unit IVP Q8HR [facility] Stop: 06/24/17 21:09 Last Admin: 05/28/17 06:20 Dose: Not Given Sodium Chloride (Normal Saline 0.9%) 1,000 mls @ 100 mls/hr IV .Q10H [facility] Last Admin: 05/28/17 06:27 Dose: 100 mls/hr Piperacillin Sod/Tazobactam (Sod 3.375 gm/ Sodium Chloride) 100 mls @ 200 mls/ hr IV Q8H [facility] Last Admin: 05/28/17 08:47 Dose: 200 mls/hr Ibuprofen (Motrin) 800 mg PO TID PRN PRN Reason: PAIN Insulin Aspart (Novolog) 1 - 5 unit SUBQ 0800,1200,1700,2100 [facility] PRN Reason: Protocol Last Admin: 05/28/17 08:21 Dose: Not Given Levothyroxine Sodium (Synthroid) 75 mcg PO QDAC [facility] Last Admin: 05/28/17 06:20 Dose: 75 mcg Lisinopril (Zestril) 10 mg PO DAILY [facility] Last Admin: 05/28/17 08:20 Dose: 10 mg Nitroglycerin (Nitrostat) 0.4 mg SL Q5M PRN PRN Reason: Chest Pain Ondansetron HCl (Zofran Inj) 4 mg IVP Q6HR PRN PRN Reason: Nausea / Vomiting Oxybutynin Chloride (Ditropan) 5 mg PO BID [facility] Last Admin: 05/28/17 08:19 Dose: 5 mg Oxycodone HCl (Roxicodone) 20 mg PO Q4H PRN PRN Reason: PAIN Last Admin: 05/28/17 08:20 Dose: 20 mg Dextroamphetamine/Amphetamine [ Dextroamp-Amphetamin ] 30 Mg Tab 1 each PO BIDWM [facility] Last Admin: 05/28/17 08:19 Dose: 1 each Polyethylene Glycol (Miralax) 17 gm PO DAILY [facility] Last Admin: 05/28/17 08:18 Dose: 17 gm Potassium Chloride (K-Dur) 20 meq PO DAILYWM [facility] Last Admin: 05/28/17 08:19 Dose: 20 meq Senna (Senokot) 8.6 - 17.2 mg PO DAILY [facility] Last Admin: 05/28/17 08:19 Dose: 8.6 mg Sodium Chloride (Normal Saline Flush 0.9%) 10 ml IVP PRN PRN PRN Reason: NEEDED PER PROVIDER ORDERS Last Admin: 05/26/17 06:11 Dose: 20 ml Sodium Chloride (Normal Saline Flush 0.9%) 10 ml IVP Q8HR [facility] Last Admin: 05/28/17 05:11 Dose: 30 ml Levothyroxine Sodium [Synthroid] 75 mcg PO QDAC 01/30/13 Citalopram [CeleXA] 20 mg PO DAILY 10/30/14 Simvastatin [Zocor] 5 mg PO QPM 10/30/14 Lisinopril 10 mg PO DAILY 06/28/15 Baclofen 20 mg PO QID PRN 11/23/16 Furosemide [Lasix] 40 mg PO DAILY 11/23/16 Oxybutynin [Ditropan] 5 mg PO BID 11/23/16 Potassium Chloride [Klor-Con M20] 20 meq PO DAILYWM 11/23/16 Chlorpheniramine Maleate [Chlorhist] 4 mg PO QID PRN 05/19/17 Dextroamphetamine/Amphetamine [Dextroamp-Amphetamin 30 mg Tab] 30 mg PO BID Docusate Sodium 100 mg PO BID PRN 05/19/17 diphenhydrAMINE [Benadryl] 25 mg PO QID PRN 05/19/17 Fluticasone [Flonase] 1 sprays RADHA DAILY 05/26/17 Ibuprofen [Ibuprofen] 800 mg PO TID PRN 05/26/17 Nitroglycerin [Nitrostat] 0.4 mg PO Q5M PRN 05/26/17 oxyCODONE [Roxicodone] 20 mg PO Q4H PRN MDD 120MG 05/26/17 Objective - Vital Signs/Intake & Output Vital Signs: Vital Signs x48h Temp Pulse Resp BP Pulse Ox 05/28/17 08:04 36.9 C 74 19 138/58 H 94 Intake & Output: Intake & Output 05/25/17 05/26/17 05/27/17 05/28/17 23:59 23:59 23:59 23:59 Intake Total 150 1749 1680 Balance 150 1749 1680 - Objective General Appearance: positive: Alert, Mild distress. negative: Lethargic Eyes Bilateral: positive: Normal inspection, PERRL ENT: positive: ENT inspection nml, Pharynx nml, Dry mucous membranes. negative : Purulent nasal drainage, Pharyngeal erythema, Oral lesions Neck: positive: Nml inspection, Thyroid nml, Trachea midline. negative: Thyromegaly, Lymphadenopathy (R), Lymphadenopathy (L), Stiff neck, Swelling/ bruising, Tracheal deviation Respiratory: positive: Chest non-tender, No respiratory distress, Breath sounds nml. negative: Wheezes, Rales, Rhonchi Cardiovascular: positive: Regular rate & rhythm, No murmur, No gallop. negative : Tachycardia, Bradycardia, Systolic murmur, Diastolic murmur Peripheral Pulses: 2+ Radial (R), 2+ Radial (L), 2+ Dorsalis pedis (R), 2+ Dorsalis pedis (L) Abdomen: positive: Non-tender, No organomegaly, Nml bowel sounds, No distention. negative: Tenderness, Guarding, Rebound Back: positive: Nml inspection. negative: CVA tenderness (R), CVA tenderness (L ) Skin: positive: Color nml, Warm, Dry, Skin rash (mild erythema at right lower extremity). negative: Cyanosis, Diaphoresis Extremities: positive: Non-tender. negative: Pedal edema, Calf tenderness, Mary Alice's sign/cords Neurologic/Psychiatric: positive: Disoriented to person, Disoriented to place, Disoriented to time, Slurred/abnml speech, Other (pt is very agitated, difficult to assess). negative: Facial droop - Lab Results Fish Bones: 05/28/17 04:55 05/28/17 04:55 Other Labs: Lab Results x24hrs 05/28/17 05/28/17 05/28/17 Range/Units 07:14 04:55 04:55 WBC 11.7 H (4.8-10.8) x10^3/uL RBC 4.04 L (4.20-5.40) 10^6/uL Hgb 12.2 (12.0-16.0) g/dL Hct 37.6 (37.0-47.0) % MCV 93.1 (81.0-99.0) fL MCH 30.3 (27.0-31.0) pg MCHC 32.5 (32.0-36.0) g/dL RDW 13.6 (12.0-15.0) % Plt Count 245 (130-450) 10^3/uL MPV 8.8 (7.9-10.8) fL Neut # 8.5 H (1.5-6.6) 10^3/uL Lymph # 2.1 (1.5-3.5) 10^3/uL [place] # 0.8 (0.0-1.0) 10^3/uL Eos # 0.1 (0.0-0.7) 10^3/uL Baso # 0.1 (0.0-0.1) 10^3/uL Absolute Nucleated RBC 0.00 x10^3/uL Nucleated RBCs 0.0 /100WBC Sodium 140 (135-145) mmol/L Potassium 3.5 (3.5-5.0) mmol/L Chloride 105 (101-111) mmol/L Carbon Dioxide 28 (21-32) mmol/L Anion Gap 7.0 (6-13) BUN 21 H (6-20) mg/dL Creatinine 0.9 (0.4-1.0) mg/dL Estimated GFR (MDRD) 63 L (>89) Glucose 148 H (70-100) mg/dL POC Whole Bld Glucose 107 H (70 - 100) mg/dL Calcium 8.2 L (8.5-10.3) mg/dL Total Bilirubin 0.7 (0.2-1.0) mg/dL AST 51 H (10-42) IU/L ALT 31 (10-60) IU/L Alkaline Phosphatase 83 (42-121) IU/L Total Protein 6.3 L (6.7-8.2) g/dL Albumin 3.5 (3.2-5.5) g/dL Globulin 2.8 (2.1-4.2) g/dL Albumin/Globulin Ratio 1.3 (1.0-2.2) 05/27/17 05/27/17 05/27/17 Range/Units 20:12 16:51 11:18 WBC (4.8-10.8) x10^3/uL RBC (4.20-5.40) 10^6/uL Hgb (12.0-16.0) g/dL Hct (37.0-47.0) % MCV (81.0-99.0) fL MCH (27.0-31.0) pg MCHC (32.0-36.0) g/dL RDW (12.0-15.0) % Plt Count (130-450) 10^3/uL MPV (7.9-10.8) fL Neut # (1.5-6.6) 10^3/uL Lymph # (1.5-3.5) 10^3/uL [place] # (0.0-1.0) 10^3/uL Eos # (0.0-0.7) 10^3/uL Baso # (0.0-0.1) 10^3/uL Absolute Nucleated RBC x10^3/uL Nucleated RBCs /100WBC Sodium (135-145) mmol/L Potassium (3.5-5.0) mmol/L Chloride (101-111) mmol/L Carbon Dioxide (21-32) mmol/L Anion Gap (6-13) BUN (6-20) mg/dL Creatinine (0.4-1.0) mg/dL Estimated GFR (MDRD) (>89) Glucose (70-100) mg/dL POC Whole Bld Glucose 209 H 105 H 150 H (70 - 100) mg/dL Calcium (8.5-10.3) mg/dL Total Bilirubin (0.2-1.0) mg/dL AST (10-42) IU/L ALT (10-60) IU/L Alkaline Phosphatase (42-121) IU/L Total Protein (6.7-8.2) g/dL Albumin (3.2-5.5) g/dL Globulin (2.1-4.2) g/dL Albumin/Globulin Ratio (1.0-2.2) 05/27/17 05/26/17 05/26/17 Range/Units 07:27 20:22 16:40 WBC (4.8-10.8) x10^3/uL RBC (4.20-5.40) 10^6/uL Hgb (12.0-16.0) g/dL Hct (37.0-47.0) % MCV (81.0-99.0) fL MCH (27.0-31.0) pg MCHC (32.0-36.0) g/dL RDW (12.0-15.0) % Plt Count (130-450) 10^3/uL MPV (7.9-10.8) fL Neut # (1.5-6.6) 10^3/uL Lymph # (1.5-3.5) 10^3/uL [place] # (0.0-1.0) 10^3/uL Eos # (0.0-0.7) 10^3/uL Baso # (0.0-0.1) 10^3/uL Absolute Nucleated RBC x10^3/uL Nucleated RBCs /100WBC Sodium (135-145) mmol/L Potassium (3.5-5.0) mmol/L Chloride (101-111) mmol/L Carbon Dioxide (21-32) mmol/L Anion Gap (6-13) BUN (6-20) mg/dL Creatinine (0.4-1.0) mg/dL Estimated GFR (MDRD) (>89) Glucose (70-100) mg/dL POC Whole Bld Glucose 142 H 174 H 120 H (70 - 100) mg/dL Calcium (8.5-10.3) mg/dL Total Bilirubin (0.2-1.0) mg/dL AST (10-42) IU/L ALT (10-60) IU/L Alkaline Phosphatase (42-121) IU/L Total Protein (6.7-8.2) g/dL Albumin (3.2-5.5) g/dL Globulin (2.1-4.2) g/dL Albumin/Globulin Ratio (1.0-2.2) Assessment/Plan - Problem List (1) Pneumonia Impression: (1) acute psychosis pt today is very agitated and some violated, do not understand what pt says. because it is acute condition, order CT of head. Because pt has Pacemaker, on MRI. first Zyprexa is ODT 2.5 mg, per nurse report, pt did not take it. Then order two 2.5 mg Zyprexa IM to try let pt finish CT of head, unfortunately it is still not working. Order the third 2.5 mg IM to pt, consult with pharmacy. let pt finish CT of head. consulted with social work program coordinator, hope to find the geriatric psychiatric bed for pt plan call psychiatrist for consulting after have CT of head result. (2) Pneumonia Conclusion/Plan: Noted pt had elevated temperature upto 37.3 then down the normal in the last night, pt's WBC slight increased to 11.7. Previous CT reveals interval improvement in the left-sided infiltration, no new consolidation. Order CT of chest to monitor the progress or any new development since in the hospital. Pt's home medication regime Levaquin is finished on 05/27. Since this new development, switch to Zosyn pt is room air with SO2 97% today. no fever, chill, cough, shortness of breathing, or chest pain reported. WBC 8.4. The result of CT reveal "interval improvement in left-sided infiltration. No new consolidation." Patient was discharged three days ago from this hospital. patient continued on Levaquin on home medication. Today is the last day for this medication on home medication list. Clinically patient is not indicated to have pneumonia, and CT of chest reveals interval improvement in left-sided infiltration, No new consolidation. Qualifiers: Pneumonia type: due to unspecified organism Laterality: bilateral Lung location: lower lobe of lung Qualified Code(s): J18.9 - Pneumonia, unspecified organism (3) Fall Conclusion/Plan: no fall reported image studies in ER reveal no fracture and soft tissue injury. pt complains mild pain at left knee and right hip. pain control fall precaution Qualifiers: Encounter type: initial encounter Qualified Code(s): W19.XXXA - Unspecified fall, initial encounter (4) Type II diabetes mellitus Conclusion/Plan: stable, continue current treatment A1C 6.8, slide scale, ACHS, glucose in the good control (5) History of CHF (congestive heart failure) Conclusion/Plan: mild to moderate hydration for dehydration. after stable, will stop the IVF stable, continue home meds (6) HTN (hypertension) Conclusion/Plan: stable, continue home meds (7) Hyperlipidemia Conclusion/Plan: stable, continue home meds simvastatin (8) Hypothyroid Conclusion/Plan: TSH 2.46 normal, reconciliation of home meds (9) Depression Conclusion/Plan: stable, resume of home meds (10) DVT prophylaxis Conclusion/Plan: SCD with Lovenox Qualifiers: Pneumonia type: due to unspecified organism Laterality: bilateral Lung location: lower lobe of lung Qualified Code(s): J18.9 - Pneumonia, unspecified organism (11) dehydration BUN and creatinine is closely pt's baseline. continue gently hydration. Qualifiers: Pneumonia type: due to unspecified organism Laterality: bilateral Lung location: lower lobe of lung Qualified Code(s): J18.9 - Pneumonia, unspecified organism (2) Fall Qualifiers: Encounter type: initial encounter Qualified Code(s): W19.XXXA - Unspecified fall, initial encounter
[2017-05-28] MEDS ORDERED: OLANZapine 10 MG VIAL IM ONE ×2 (10:30→14:37)
[2017-05-28] MEDS ORDERED: OLANZapine 10 MG VIAL IM PRN (12:07)
[2017-05-28] MEDS ORDERED: LORazepam 2 MG/ML SYRINGE IVP SCH (16:00)
[2017-05-28] MEDS: BACLOFEN 10 MG TABLET PO PRN (16:54)
--- NOTE | 2017-05-28 18:05 | CT Report ---
EXAM: CT HEAD EXAM DATE: 05/28/2017 05:55 PM. CLINICAL HISTORY: Altered mental status. COMPARISON: 05/24/2017. TECHNIQUE: Multiaxial CT images were obtained from the foramen magnum to the vertex. IV contrast: Non e. Reformats: Coronal. In accordance with CT protocol optimization, one or more of the following dose reduction techniques w ere utilized for this exam: automated exposure control, adjustment of mA and/or KV based on patient s ize, or use of iterative reconstructive technique. FINDINGS: Parenchyma: No intraparenchymal hemorrhage. No evidence of mass, midline shift, or CT findings of acu te infarction. Multiple lacunar infarctions. Shah-white differentiation is distinct. Extraaxial Spaces: Normal for age. No subdural or epidural collections. Ventricles: The ventricles and cortical sulci are enlarged, consistent with age-related tissue loss. Sinuses: Imaged paranasal sinuses, orbits, and mastoids show no significant abnormality. Bones: Unremarkable. Other: Diffuse chronic microangiopathic white matter changes. IMPRESSION: Chronic findings including old lacunar infarctions. No definite acute disease. [facility] Referring Provider Line: [phone] SITE ID: [id number]
[2017-05-28] MEDS: ATORVASTATIN 10 MG TABLET PO SCH (21:14)
[2017-05-29] MEDS: SODIUM CHLORIDE FLUSH 0.9% 10 ML SYRINGE IVP SCH ×3 (00:13→20:52)
[2017-05-29] MEDS: PIPERACILLIN/TAZOBACTAM 3.375 GM in SODIUM CHLORIDE 0.9% MINIBAG 100 ML IV SCH ×3 (00:31→18:15)
[2017-05-29 06:37] LABS: BASOPHILS # (AUTO) 0.1 10^3/uL (0.0-0.1); BASOPHILS % (AUTO) 1.1 %; EOSINOPHILS # (AUTO) 0.2 10^3/uL (0.0-0.7); EOSINOPHILS % (AUTO) 2.7 %; HCT - HEMATOCRIT 36.1 % (37.0-47.0); HGB - HEMOGLOBIN 11.9 g/dL (12.0-16.0); LYMPHOCYTES # (AUTO) 1.2 10^3/uL (1.5-3.5); LYMPHOCYTES % (AUTO) 13.8 %; MEAN CORPUSCULAR HEMOGLOBIN 31.2 pg (27.0-31.0); MEAN CORPUSCULAR HGB CONC 33.1 g/dL (32.0-36.0); MEAN CORPUSCULAR VOLUME 94.2 fL (81.0-99.0); MEAN PLATELET VOLUME 9.3 fL (7.9-10.8); MONOCYTES # (AUTO) 0.6 10^3/uL (0.0-1.0); MONOCYTES % (AUTO) 6.5 %; NEUTROPHILS # (AUTO) 6.7 10^3/uL (1.5-6.6); NEUTROPHILS % (AUTO) 75.9 %; RED BLOOD COUNT 3.83 10^6/uL (4.20-5.40); RED CELL DISTRIBUTION WIDTH 13.8 % (12.0-15.0); UNCORRECTED WHITE BLOOD COUNT 8.8 x10^3/uL; WHITE BLOOD COUNT 8.8 x10^3/uL (4.8-10.8)
[2017-05-29 06:45] LABS: ALBUMIN/GLOBULIN RATIO 1.2 (1.0-2.2); BILIRUBIN,TOTAL 0.8 mg/dL (0.2-1.0); CREATININE 0.6 mg/dL (0.4-1.0); POTASSIUM 3.1 mmol/L (3.5-5.0); TOTAL PROTEIN 5.9 g/dL (6.7-8.2)
[2017-05-29] MEDS: SODIUM CHLORIDE 0.9% 1,000 ML IV SCH ×3 (07:51→18:12)
[2017-05-29] MEDS: POTASSIUM CHLOR 10 MEQ/100 ML 100 ML IV SCH ×2 (08:30→09:35)
[2017-05-29] MEDS: INSULIN ASPART 300 UNIT/3 ML PEN SUBQ SCH ×4 (09:12→20:50)
--- NOTE | 2017-05-29 11:51 | PROVIDER PROGRESS NOTE ---
Subjective - Prog Note Date Prog Note Date: 05/29/17 - Subjective Pt reports feeling: Improved Subjective: pt is comfortable sleeping at bed, no psychosis event reported as far, pt is cooperative to take all her medication. Current Medications - Current Medications Current Medications: Active Medications Acetaminophen (Tylenol) 650 mg PO Q4HR PRN PRN Reason: Pain 1 to 4 Atorvastatin Calcium (Lipitor) 5 mg PO QPM [facility] Last Admin: 05/28/17 21:14 Dose: Not Given Baclofen (Lioresal) 20 mg PO QID PRN PRN Reason: Spasms Last Admin: 05/28/17 16:54 Dose: 20 mg Citalopram Hydrobromide (Celexa) 20 mg PO DAILY [facility] Last Admin: 05/29/17 11:56 Dose: Not Given Diphenhydramine HCl (Benadryl) 25 mg PO QID PRN PRN Reason: Allergy Symptoms Last Admin: 05/28/17 03:19 Dose: 25 mg Docusate Sodium (Colace 250mg Capsule) 250 - 500 mg PO DAILY [facility] Last Admin: 05/29/17 11:56 Dose: Not Given Enoxaparin Sodium (Lovenox) 40 mg SUBQ DAILY [facility] Last Admin: 05/29/17 12:06 Dose: 40 mg Famotidine (Pepcid) 20 mg PO DAILY [facility] Last Admin: 05/29/17 11:57 Dose: Not Given Fluticasone Propionate (Flonase) 1 sprays RADHA DAILY [facility] Last Admin: 05/29/17 12:07 Dose: Not Given Furosemide (Lasix) 40 mg PO DAILY [facility] Last Admin: 05/29/17 11:57 Dose: Not Given Heparin Sodium (Beef Lung) () 30 - 50 unit IVP Q8HR [facility] Stop: 06/24/17 21:09 Last Admin: 05/29/17 11:58 Dose: Not Given Sodium Chloride (Normal Saline 0.9%) 1,000 mls @ 100 mls/hr IV .Q10H [facility] Last Admin: 05/29/17 07:51 Dose: 100 mls/hr Piperacillin Sod/Tazobactam (Sod 3.375 gm/ Sodium Chloride) 100 mls @ 200 mls/ hr IV Q8H [facility] Last Admin: 05/29/17 10:35 Dose: 200 mls/hr Ibuprofen (Motrin) 800 mg PO TID PRN PRN Reason: PAIN Insulin Aspart (Novolog) 1 - 5 unit SUBQ 0800,1200,1700,2100 [facility] PRN Reason: Protocol Last Admin: 05/29/17 11:57 Dose: Not Given Levothyroxine Sodium (Synthroid) 75 mcg PO QDAC [facility] Last Admin: 05/29/17 11:56 Dose: Not Given Lisinopril (Zestril) 10 mg PO DAILY [facility] Last Admin: 05/29/17 11:57 Dose: Not Given Nitroglycerin (Nitrostat) 0.4 mg SL Q5M PRN PRN Reason: Chest Pain Ondansetron HCl (Zofran Inj) 4 mg IVP Q6HR PRN PRN Reason: Nausea / Vomiting Oxybutynin Chloride (Ditropan) 5 mg PO BID [facility] Last Admin: 05/29/17 11:57 Dose: Not Given Oxycodone HCl (Roxicodone) 20 mg PO Q4H PRN PRN Reason: PAIN Last Admin: 05/28/17 08:20 Dose: 20 mg Dextroamphetamine/Amphetamine [ Dextroamp-Amphetamin ] 30 Mg Tab 1 each PO BIDWM [facility] Last Admin: 05/29/17 11:56 Dose: Not Given Polyethylene Glycol (Miralax) 17 gm PO DAILY [facility] Last Admin: 05/29/17 11:57 Dose: Not Given Potassium Chloride (K-Dur) 20 meq PO DAILYWM [facility] Last Admin: 05/29/17 11:56 Dose: Not Given Senna (Senokot) 8.6 - 17.2 mg PO DAILY [facility] Last Admin: 05/29/17 11:57 Dose: Not Given Sodium Chloride (Normal Saline Flush 0.9%) 10 ml IVP PRN PRN PRN Reason: NEEDED PER PROVIDER ORDERS Last Admin: 05/26/17 06:11 Dose: 20 ml Sodium Chloride (Normal Saline Flush 0.9%) 10 ml IVP Q8HR [facility] Last Admin: 05/29/17 11:58 Dose: Not Given Levothyroxine Sodium [Synthroid] 75 mcg PO QDAC 01/30/13 Citalopram [CeleXA] 20 mg PO DAILY 10/30/14 Simvastatin [Zocor] 5 mg PO QPM 10/30/14 Lisinopril 10 mg PO DAILY 06/28/15 Baclofen 20 mg PO QID PRN 11/23/16 Furosemide [Lasix] 40 mg PO DAILY 11/23/16 Oxybutynin [Ditropan] 5 mg PO BID 11/23/16 Potassium Chloride [Klor-Con M20] 20 meq PO DAILYWM 11/23/16 Chlorpheniramine Maleate [Chlorhist] 4 mg PO QID PRN 05/19/17 Dextroamphetamine/Amphetamine [Dextroamp-Amphetamin 30 mg Tab] 30 mg PO BID Docusate Sodium 100 mg PO BID PRN 05/19/17 diphenhydrAMINE [Benadryl] 25 mg PO QID PRN 05/19/17 Fluticasone [Flonase] 1 sprays RADHA DAILY 05/26/17 Ibuprofen [Ibuprofen] 800 mg PO TID PRN 05/26/17 Nitroglycerin [Nitrostat] 0.4 mg PO Q5M PRN 05/26/17 oxyCODONE [Roxicodone] 20 mg PO Q4H PRN MDD 120MG 05/26/17 Objective - Vital Signs/Intake & Output Reviewed Vital Signs: Yes Vital Signs: Vital Signs x48h Temp Pulse Pulse Resp BP 05/29/17 08:00 60 154/57 H 05/29/17 07:58 36.5 C 59 L 16 170/71 H Intake & Output: Intake & Output 05/26/17 05/27/17 05/28/17 05/29/17 23:59 23:59 23:59 23:59 Intake Total 150 1749 3827 943 Balance 150 1749 3827 943 - Objective General Appearance: positive: No acute distress, Alert Eyes Bilateral: positive: Normal inspection, PERRL ENT: positive: ENT inspection nml, Pharynx nml, No signs of dehydration. negative: Purulent nasal drainage, Pharyngeal erythema Neck: positive: Nml inspection, Thyroid nml, Trachea midline. negative: Lymphadenopathy (R), Lymphadenopathy (L), Swelling/bruising, Tracheal deviation Respiratory: positive: Chest non-tender, No respiratory distress, Breath sounds nml. negative: Wheezes, Rales, Rhonchi Cardiovascular: positive: Regular rate & rhythm, No murmur, No gallop. negative : Tachycardia, Bradycardia, Systolic murmur, Diastolic murmur Peripheral Pulses: 2+ Radial (R), 2+ Radial (L), 2+ Dorsalis pedis (R), 2+ Dorsalis pedis (L) Abdomen: positive: Non-tender, No organomegaly, No distention. negative: Tenderness, Guarding, Rebound Back: positive: Nml inspection. negative: CVA tenderness (R), CVA tenderness (L ) Skin: positive: Color nml, Warm, Dry, Other (right lower extremity with mild skin tear) Extremities: positive: Non-tender. negative: Calf tenderness, Mary Alice's sign/ cords Neurologic/Psychiatric: positive: Other (pt is sleeping at bed, not wake up her now). negative: Facial droop - Lab Results Fish Bones: 05/29/17 04:50 05/29/17 04:50 Other Labs: Lab Results x24hrs 05/29/17 05/29/17 Range/Units 04:50 04:50 WBC 8.8 (4.8-10.8) x10^3/uL RBC 3.83 L (4.20-5.40) 10^6/uL Hgb 11.9 L (12.0-16.0) g/dL Hct 36.1 L (37.0-47.0) % MCV 94.2 (81.0-99.0) fL MCH 31.2 H (27.0-31.0) pg MCHC 33.1 (32.0-36.0) g/dL RDW 13.8 (12.0-15.0) % Plt Count 230 (130-450) 10^3/uL MPV 9.3 (7.9-10.8) fL Neut # 6.7 H (1.5-6.6) 10^3/uL Lymph # 1.2 L (1.5-3.5) 10^3/uL Brule # 0.6 (0.0-1.0) 10^3/uL Eos # 0.2 (0.0-0.7) 10^3/uL Baso # 0.1 (0.0-0.1) 10^3/uL Absolute Nucleated RBC 0.00 x10^3/uL Nucleated RBCs 0.0 /100WBC Sodium 141 (135-145) mmol/L Potassium 3.1 L (3.5-5.0) mmol/L Chloride 109 (101-111) mmol/L Carbon Dioxide 26 (21-32) mmol/L Anion Gap 6.0 (6-13) BUN 11 (6-20) mg/dL Creatinine 0.6 (0.4-1.0) mg/dL Estimated GFR (MDRD) 100 (>89) Glucose 113 H (70-100) mg/dL Calcium 8.0 L (8.5-10.3) mg/dL Total Bilirubin 0.8 (0.2-1.0) mg/dL AST 45 H (10-42) IU/L ALT 29 (10-60) IU/L Alkaline Phosphatase 74 (42-121) IU/L Total Protein 5.9 L (6.7-8.2) g/dL Albumin 3.2 (3.2-5.5) g/dL Globulin 2.7 (2.1-4.2) g/dL Albumin/Globulin Ratio 1.2 (1.0-2.2) Assessment/Plan - Problem List (1) Pneumonia Impression: (1) acute psychosis no any psychosis events reported. pt is comfortable sleeping, she is cooperative to take all her night medication and morning medications. It appears improved. CT of head without acute findings. will help keep pt's sleep, may order Zyprexia to tonight for night time sleeping. closely monitor pt, as needed tele call psychiatrist pt today is very agitated and some violated, do not understand what pt says. because it is acute condition, order CT of head. Because pt has Pacemaker, on MRI. first Zyprexa is ODT 2.5 mg, per nurse report, pt did not take it. Then order two 2.5 mg Zyprexa IM to try let pt finish CT of head, unfortunately it is still not working. Order the third 2.5 mg IM to pt, consult with pharmacy. let pt finish CT of head. consulted with case management social worker, hope to find the geriatric psychiatric bed for pt plan call psychiatrist for consulting after have CT of head result. (2) Pneumonia Conclusion/Plan: CT of chest reveals improved, WBC drop to normal, continue to current treatment of antibiotics Noted pt had elevated temperature upto 37.3 then down the normal in the last night, pt's WBC slight increased to 11.7. Previous CT reveals interval improvement in the left-sided infiltration, no new consolidation. Order CT of chest to monitor the progress or any new development since in the hospital. Pt's home medication regime Levaquin is finished on 05/27. Since this new development, switch to Zosyn pt is room air with SO2 97% today. no fever, chill, cough, shortness of breathing, or chest pain reported. WBC 8.4. The result of CT reveal "interval improvement in left-sided infiltration. No new consolidation." Patient was discharged three days ago from this hospital. patient continued on Levaquin on home medication. Today is the last day for this medication on home medication list. Clinically patient is not indicated to have pneumonia, and CT of chest reveals interval improvement in left-sided infiltration, No new consolidation. Qualifiers: Pneumonia type: due to unspecified organism Laterality: bilateral Lung location: lower lobe of lung Qualified Code(s): J18.9 - Pneumonia, unspecified organism (3) Fall Conclusion/Plan: no fall reported image studies in ER reveal no fracture and soft tissue injury. pt complains mild pain at left knee and right hip. pain control fall precaution Qualifiers: Encounter type: initial encounter Qualified Code(s): W19.XXXA - Unspecified fall, initial encounter (4) Type II diabetes mellitus Conclusion/Plan: encourage pt to eat, ACHS, slide scale stable, continue current treatment A1C 6.8, slide scale, ACHS, glucose in the good control (5) History of CHF (congestive heart failure) Conclusion/Plan: mild to moderate hydration for dehydration. after stable, will stop the IVF stable, continue home meds (6) HTN (hypertension) Conclusion/Plan: stable, continue home meds (7) Hyperlipidemia Conclusion/Plan: stable, continue home meds simvastatin (8) Hypothyroid Conclusion/Plan: TSH 2.46 normal, reconciliation of home meds (9) Depression Conclusion/Plan: stable, resume of home meds (10) DVT prophylaxis Conclusion/Plan: SCD with Lovenox Qualifiers: Pneumonia type: due to unspecified organism Laterality: bilateral Lung location: lower lobe of lung Qualified Code(s): J18.9 - Pneumonia, unspecified organism (11) dehydration BUN and creatinine is closely pt's baseline. continue gently hydration. Qualifiers: Pneumonia type: due to unspecified organism Laterality: bilateral Lung location: lower lobe of lung Qualified Code(s): J18.9 - Pneumonia, unspecified organism (12) hypokalemia replacement of potassium, recheck morning lab Qualifiers: Pneumonia type: due to unspecified organism Laterality: bilateral Lung location: lower lobe of lung Qualified Code(s): J18.9 - Pneumonia, unspecified organism (2) Fall Qualifiers: Encounter type: initial encounter Qualified Code(s): W19.XXXA - Unspecified fall, initial encounter
[2017-05-29] MEDS: DOCUSATE SODIUM 250 MG CAPSULE PO SCH (11:56)
[2017-05-29] MEDS: DEXTROAMPHETAMINE PO SCH ×2 (11:56→18:12)
[2017-05-29] MEDS: CITALOPRAM 10 MG TABLET PO SCH (11:56)
[2017-05-29] MEDS: LEVOTHYROXINE 75 MCG TABLET PO SCH (11:56)
[2017-05-29] MEDS: AMPHETAMINE PO SCH ×2 (11:56→18:12)
[2017-05-29] MEDS: POTASSIUM CHLORIDE 20 MEQ TABLET PO SCH (11:56)
[2017-05-29] MEDS: SENNA 8.6 MG TABLET PO SCH (11:57)
[2017-05-29] MEDS: FUROSEMIDE 40 MG TABLET PO SCH (11:57)
[2017-05-29] MEDS: OXYBUTYNIN 5MG TABLET PO SCH ×2 (11:57→21:20)
[2017-05-29] MEDS: FAMOTIDINE 20 MG TABLET PO SCH (11:57)
[2017-05-29] MEDS: POLYETHYLENE GLYCOL 3350 17 GM PACKET PO SCH ×2 (11:57→21:20)
[2017-05-29] MEDS: LISINOPRIL 5 MG TABLET PO SCH (11:57)
[2017-05-29] MEDS: ENOXAPARIN 40 MG/0.4 ML SYRINGE SUBQ SCH (12:06)
[2017-05-29] MEDS: FLUTICASONE NASAL SPRAY NAS SCH (12:07)
[2017-05-29] MEDS: ATORVASTATIN 10 MG TABLET PO SCH (21:20)
[2017-05-30] MEDS: PIPERACILLIN/TAZOBACTAM 3.375 GM in SODIUM CHLORIDE 0.9% MINIBAG 100 ML IV SCH ×3 (00:52→16:56)
[2017-05-30] MEDS: SODIUM CHLORIDE FLUSH 0.9% 10 ML SYRINGE IVP SCH ×3 (04:04→21:18)
[2017-05-30] MEDS: SODIUM CHLORIDE 0.9% 1,000 ML IV SCH ×3 (05:49→21:18)
[2017-05-30] MEDS: LEVOTHYROXINE 75 MCG TABLET PO SCH (05:49)
[2017-05-30 07:47] LABS: BASOPHILS % (AUTO) 0.3 %; EOSINOPHILS # (AUTO) 0.2 10^3/uL (0.0-0.7); EOSINOPHILS % (AUTO) 2.6 %; HCT - HEMATOCRIT 35.3 % (37.0-47.0); HGB - HEMOGLOBIN 11.7 g/dL (12.0-16.0); LYMPHOCYTES % (AUTO) 16.9 %; MEAN CORPUSCULAR HEMOGLOBIN 30.8 pg (27.0-31.0); MEAN CORPUSCULAR HGB CONC 33.2 g/dL (32.0-36.0); MEAN CORPUSCULAR VOLUME 92.9 fL (81.0-99.0); MEAN PLATELET VOLUME 8.7 fL (7.9-10.8); MONOCYTES # (AUTO) 0.4 10^3/uL (0.0-1.0); NEUTROPHILS # (AUTO) 4.3 10^3/uL (1.5-6.6); NEUTROPHILS % (AUTO) 74.2 %; NUCLEATED RED BLOOD CELLS AUTO 0.1 /100WBC; UNCORRECTED WHITE BLOOD COUNT 5.8 x10^3/uL; WHITE BLOOD COUNT 5.8 x10^3/uL (4.8-10.8)
[2017-05-30 07:57] LABS: ALBUMIN/GLOBULIN RATIO 1.2 (1.0-2.2); CREATININE 0.7 mg/dL (0.4-1.0); POTASSIUM 3.4 mmol/L (3.5-5.0); TOTAL PROTEIN 5.6 g/dL (6.7-8.2)
[2017-05-30] MEDS: DOCUSATE SODIUM 250 MG CAPSULE PO SCH (08:23)
[2017-05-30] MEDS: FUROSEMIDE 40 MG TABLET PO SCH (08:23)
[2017-05-30] MEDS: POTASSIUM CHLORIDE 20 MEQ TABLET PO SCH (08:23)
[2017-05-30] MEDS: DEXTROAMPHETAMINE PO SCH ×3 (08:23→17:24)
[2017-05-30] MEDS: CITALOPRAM 10 MG TABLET PO SCH (08:23)
[2017-05-30] MEDS: LISINOPRIL 5 MG TABLET PO SCH (08:23)
[2017-05-30] MEDS: AMPHETAMINE PO SCH ×3 (08:23→17:24)
[2017-05-30] MEDS: ENOXAPARIN 40 MG/0.4 ML SYRINGE SUBQ SCH (08:24)
[2017-05-30] MEDS: FAMOTIDINE 20 MG TABLET PO SCH (08:24)
[2017-05-30] MEDS: INSULIN ASPART 300 UNIT/3 ML PEN SUBQ SCH ×4 (08:24→21:16)
[2017-05-30] MEDS: FLUTICASONE NASAL SPRAY NAS SCH (08:24)
[2017-05-30] MEDS: SENNA 8.6 MG TABLET PO SCH (08:24)
[2017-05-30] MEDS: OXYBUTYNIN 5MG TABLET PO SCH ×2 (08:24→21:17)
[2017-05-30] MEDS: POLYETHYLENE GLYCOL 3350 17 GM PACKET PO SCH (08:33)
--- NOTE | 2017-05-30 09:15 | PROVIDER PROGRESS NOTE ---
Subjective - Prog Note Date Prog Note Date: 05/30/17 - Subjective Pt reports feeling: Improved Subjective: pt's mental status is much improved. pt is alert, oriented plus 3. pt state she has been living with her granddaughter together, and she wanted to D/C today to home. Pt also report her daughter also help her at home. Pt ate her breakfast well by her own with her left hand. Pt also asks me what happens for this couple of day to her. pt denies any fever, chill, chest pain, Shortness of breathing, headache, abdominal pain, nausea, vomiting, diarrhea. Current Medications - Current Medications Current Medications: Active Medications Acetaminophen (Tylenol) 650 mg PO Q4HR PRN PRN Reason: Pain 1 to 4 Atorvastatin Calcium (Lipitor) 5 mg PO QPM [facility] Last Admin: 05/29/17 21:20 Dose: 5 mg Baclofen (Lioresal) 20 mg PO QID PRN PRN Reason: Spasms Last Admin: 05/28/17 16:54 Dose: 20 mg Citalopram Hydrobromide (Celexa) 20 mg PO DAILY [facility] Last Admin: 05/30/17 08:23 Dose: 20 mg Diphenhydramine HCl (Benadryl) 25 mg PO QID PRN PRN Reason: Allergy Symptoms Last Admin: 05/28/17 03:19 Dose: 25 mg Docusate Sodium (Colace 250mg Capsule) 250 - 500 mg PO DAILY [facility] Last Admin: 05/30/17 08:23 Dose: 250 mg Enoxaparin Sodium (Lovenox) 40 mg SUBQ DAILY [facility] Last Admin: 05/30/17 08:24 Dose: 40 mg Famotidine (Pepcid) 20 mg PO DAILY [facility] Last Admin: 05/30/17 08:24 Dose: 20 mg Fluticasone Propionate (Flonase) 1 sprays RADHA DAILY [facility] Last Admin: 05/30/17 08:24 Dose: 1 sprays Furosemide (Lasix) 40 mg PO DAILY [facility] Last Admin: 05/30/17 08:23 Dose: 40 mg Heparin Sodium (Beef Lung) () 30 - 50 unit IVP Q8HR [facility] Stop: 06/24/17 21:09 Last Admin: 05/30/17 04:05 Dose: Not Given Piperacillin Sod/Tazobactam (Sod 3.375 gm/ Sodium Chloride) 100 mls @ 200 mls/ hr IV Q8H [facility] Last Admin: 05/30/17 08:24 Dose: 200 mls/hr Sodium Chloride (Normal Saline 0.9%) 1,000 mls @ 75 mls/hr IV .[id number] [facility] Ibuprofen (Motrin) 800 mg PO TID PRN PRN Reason: PAIN Insulin Aspart (Novolog) 1 - 5 unit SUBQ 0800,1200,1700,2100 [facility] PRN Reason: Protocol Last Admin: 05/30/17 08:24 Dose: 1 unit Levothyroxine Sodium (Synthroid) 75 mcg PO QDAC [facility] Last Admin: 05/30/17 05:49 Dose: 75 mcg Lisinopril (Zestril) 10 mg PO DAILY [facility] Last Admin: 05/30/17 08:23 Dose: 10 mg Nitroglycerin (Nitrostat) 0.4 mg SL Q5M PRN PRN Reason: Chest Pain Ondansetron HCl (Zofran Inj) 4 mg IVP Q6HR PRN PRN Reason: Nausea / Vomiting Oxybutynin Chloride (Ditropan) 5 mg PO BID [facility] Last Admin: 05/30/17 08:24 Dose: 5 mg Oxycodone HCl (Roxicodone) 20 mg PO Q4H PRN PRN Reason: PAIN Last Admin: 05/28/17 08:20 Dose: 20 mg Dextroamphetamine/Amphetamine [ Dextroamp-Amphetamin ] 30 Mg Tab 1 each PO BIDWM [facility] Last Admin: 05/30/17 08:23 Dose: 1 each Polyethylene Glycol (Miralax) 17 gm PO DAILY [facility] Last Admin: 05/30/17 08:33 Dose: 17 gm Potassium Chloride (K-Dur) 20 meq PO DAILYWM [facility] Last Admin: 05/30/17 08:23 Dose: 20 meq Potassium Chloride (K-Dur) 20 meq PO ONCE [facility] Stop: 05/30/17 14:00 Senna (Senokot) 8.6 - 17.2 mg PO DAILY [facility] Last Admin: 05/30/17 08:24 Dose: 8.6 mg Sodium Chloride (Normal Saline Flush 0.9%) 10 ml IVP PRN PRN PRN Reason: NEEDED PER PROVIDER ORDERS Last Admin: 05/26/17 06:11 Dose: 20 ml Sodium Chloride (Normal Saline Flush 0.9%) 10 ml IVP Q8HR [facility] Last Admin: 05/30/17 04:04 Dose: Not Given Levothyroxine Sodium [Synthroid] 75 mcg PO QDAC 01/30/13 Citalopram [CeleXA] 20 mg PO DAILY 10/30/14 Simvastatin [Zocor] 5 mg PO QPM 10/30/14 Lisinopril 10 mg PO DAILY 06/28/15 Baclofen 20 mg PO QID PRN 11/23/16 Furosemide [Lasix] 40 mg PO DAILY 11/23/16 Oxybutynin [Ditropan] 5 mg PO BID 11/23/16 Potassium Chloride [Klor-Con M20] 20 meq PO DAILYWM 11/23/16 Chlorpheniramine Maleate [Chlorhist] 4 mg PO QID PRN 05/19/17 Dextroamphetamine/Amphetamine [Dextroamp-Amphetamin 30 mg Tab] 30 mg PO BID Docusate Sodium 100 mg PO BID PRN 05/19/17 diphenhydrAMINE [Benadryl] 25 mg PO QID PRN 05/19/17 Fluticasone [Flonase] 1 sprays RADHA DAILY 05/26/17 Ibuprofen [Ibuprofen] 800 mg PO TID PRN 05/26/17 Nitroglycerin [Nitrostat] 0.4 mg PO Q5M PRN 05/26/17 oxyCODONE [Roxicodone] 20 mg PO Q4H PRN MDD 120MG 05/26/17 Objective - Vital Signs/Intake & Output Reviewed Vital Signs: Yes Vital Signs: Vital Signs x48h Temp Pulse Resp BP Pulse Ox 05/30/17 07:49 36.9 C 79 18 156/73 H 98 05/30/17 01:36 36.8 C 60 18 145/62 H 98 Intake & Output: Intake & Output 05/27/17 05/28/17 05/29/17 05/30/17 23:59 23:59 23:59 23:59 Intake Total 2155 2334 2495 1634 Balance 1746 3829 2495 1634 - Objective General Appearance: positive: No acute distress, Alert. negative: Lethargic Eyes Bilateral: positive: Normal inspection, PERRL. negative: No lid inflammation, Conjunctivae nml ENT: positive: ENT inspection nml, Pharynx nml, No signs of dehydration. negative: Purulent nasal drainage, Pharyngeal erythema, Oral lesions Neck: positive: Nml inspection, Thyroid nml, Trachea midline. negative: Thyromegaly, Lymphadenopathy (R), Lymphadenopathy (L), Stiff neck, Swelling/ bruising, Tracheal deviation Respiratory: positive: Chest non-tender, No respiratory distress, Breath sounds nml. negative: Wheezes, Rales, Rhonchi Cardiovascular: positive: Regular rate & rhythm. negative: Tachycardia, Bradycardia, Systolic murmur, Diastolic murmur Peripheral Pulses: 2+ Radial (R), 2+ Radial (L), 2+ Dorsalis pedis (R), 2+ Dorsalis pedis (L) Abdomen: positive: Non-tender, Nml bowel sounds, No distention. negative: Tenderness, Guarding, Rebound Back: positive: Nml inspection. negative: CVA tenderness (R), CVA tenderness (L ) Skin: positive: Color nml, Warm, Dry. negative: Diaphoresis, Pallor, Skin rash Extremities: positive: Non-tender. negative: Calf tenderness, Mary Alice's sign/ cords Neurologic/Psychiatric: positive: Oriented x3, Mood/affect nml, Slurred/abnml speech. negative: Sensory loss, Facial droop - Lab Results Fish Bones: 05/30/17 07:38 05/30/17 07:38 Other Labs: Lab Results x24hrs 05/30/17 05/30/17 05/29/17 Range/Units 07:38 07:38 11:40 WBC 5.8 (4.8-10.8) x10^3/uL RBC 3.80 L (4.20-5.40) 10^6/uL Hgb 11.7 L (12.0-16.0) g/dL Hct 35.3 L (37.0-47.0) % MCV 92.9 (81.0-99.0) fL MCH 30.8 (27.0-31.0) pg MCHC 33.2 (32.0-36.0) g/dL RDW 14.0 (12.0-15.0) % Plt Count 254 (130-450) 10^3/uL MPV 8.7 (7.9-10.8) fL Neut # 4.3 (1.5-6.6) 10^3/uL Lymph # 1.0 L (1.5-3.5) 10^3/uL Hale # 0.4 (0.0-1.0) 10^3/uL Eos # 0.2 (0.0-0.7) 10^3/uL Baso # 0.0 (0.0-0.1) 10^3/uL Absolute Nucleated RBC 0.01 x10^3/uL Nucleated RBCs 0.1 /100WBC Sodium 140 (135-145) mmol/L Potassium 3.4 L (3.5-5.0) mmol/L Chloride 107 (101-111) mmol/L Carbon Dioxide 26 (21-32) mmol/L Anion Gap 7.0 (6-13) BUN 9 (6-20) mg/dL Creatinine 0.7 (0.4-1.0) mg/dL Estimated GFR (MDRD) 84 L (>89) Glucose 140 H (70-100) mg/dL POC Whole Bld Glucose 81 (70 - 100) mg/dL Calcium 8.0 L (8.5-10.3) mg/dL Magnesium 2.0 (1.7-2.8) mg/dL Total Bilirubin 1.0 (0.2-1.0) mg/dL AST 27 (10-42) IU/L ALT 24 (10-60) IU/L Alkaline Phosphatase 71 (42-121) IU/L Total Protein 5.6 L (6.7-8.2) g/dL Albumin 3.1 L (3.2-5.5) g/dL Globulin 2.5 (2.1-4.2) g/dL Albumin/Globulin Ratio 1.2 (1.0-2.2) 05/29/17 05/28/17 05/28/17 Range/Units 08:07 21:14 16:48 WBC (4.8-10.8) x10^3/uL RBC (4.20-5.40) 10^6/uL Hgb (12.0-16.0) g/dL Hct (37.0-47.0) % MCV (81.0-99.0) fL MCH (27.0-31.0) pg MCHC (32.0-36.0) g/dL RDW (12.0-15.0) % Plt Count (130-450) 10^3/uL MPV (7.9-10.8) fL Neut # (1.5-6.6) 10^3/uL Lymph # (1.5-3.5) 10^3/uL Hale # (0.0-1.0) 10^3/uL Eos # (0.0-0.7) 10^3/uL Baso # (0.0-0.1) 10^3/uL Absolute Nucleated RBC x10^3/uL Nucleated RBCs /100WBC Sodium (135-145) mmol/L Potassium (3.5-5.0) mmol/L Chloride (101-111) mmol/L Carbon Dioxide (21-32) mmol/L Anion Gap (6-13) BUN (6-20) mg/dL Creatinine (0.4-1.0) mg/dL Estimated GFR (MDRD) (>89) Glucose (70-100) mg/dL POC Whole Bld Glucose 111 H 150 H 163 H (70 - 100) mg/dL Calcium (8.5-10.3) mg/dL Magnesium (1.7-2.8) mg/dL Total Bilirubin (0.2-1.0) mg/dL AST (10-42) IU/L ALT (10-60) IU/L Alkaline Phosphatase (42-121) IU/L Total Protein (6.7-8.2) g/dL Albumin (3.2-5.5) g/dL Globulin (2.1-4.2) g/dL Albumin/Globulin Ratio (1.0-2.2) Assessment/Plan - Problem List (1) Pneumonia Impression: (1) acute psychosis pt is alert, oriented and request to d/c to home with her family. it appear pt' s psychosis is resolved. PT/OT will evaluation and treatment with pt plan D/C to home today no any psychosis events reported. pt is comfortable sleeping, she is cooperative to take all her night medication and morning medications. It appears improved. CT of head without acute findings. will help keep pt's sleep, may order Zyprexia to tonight for night time sleeping. closely monitor pt, as needed tele call psychiatrist pt today is very agitated and some violated, do not understand what pt says. because it is acute condition, order CT of head. Because pt has Pacemaker, on MRI. first Zyprexa is ODT 2.5 mg, per nurse report, pt did not take it. Then order two 2.5 mg Zyprexa IM to try let pt finish CT of head, unfortunately it is still not working. Order the third 2.5 mg IM to pt, consult with pharmacy. let pt finish CT of head. consulted with social media marketing specialist, hope to find the geriatric psychiatric bed for pt plan call psychiatrist for consulting after have CT of head result. (2) Pneumonia Conclusion/Plan: no fever,chill, shortness of breathing, cough. room air with 98%, plan D/C with four days of Augmentin, follow up Xray and PCP visiting CT of chest reveals improved, WBC drop to normal, continue to current treatment of antibiotics Noted pt had elevated temperature upto 37.3 then down the normal in the last night, pt's WBC slight increased to 11.7. Previous CT reveals interval improvement in the left-sided infiltration, no new consolidation. Order CT of chest to monitor the progress or any new development since in the hospital. Pt's home medication regime Levaquin is finished on 05/27. Since this new development, switch to Zosyn pt is room air with SO2 97% today. no fever, chill, cough, shortness of breathing, or chest pain reported. WBC 8.4. The result of CT reveal "interval improvement in left-sided infiltration. No new consolidation." Patient was discharged three days ago from this hospital. patient continued on Levaquin on home medication. Today is the last day for this medication on home medication list. Clinically patient is not indicated to have pneumonia, and CT of chest reveals interval improvement in left-sided infiltration, No new consolidation. Qualifiers: Pneumonia type: due to unspecified organism Laterality: bilateral Lung location: lower lobe of lung Qualified Code(s): J18.9 - Pneumonia, unspecified organism (3) Fall Conclusion/Plan: no fall reported image studies in ER reveal no fracture and soft tissue injury. pt complains mild pain at left knee and right hip. pain control fall precaution Qualifiers: Encounter type: initial encounter Qualified Code(s): W19.XXXA - Unspecified fall, initial encounter (4) Type II diabetes mellitus Conclusion/Plan: encourage pt to eat, ACHS, slide scale stable, continue current treatment A1C 6.8, slide scale, ACHS, glucose in the good control (5) History of CHF (congestive heart failure) Conclusion/Plan: mild to moderate hydration for dehydration. after stable, will stop the IVF stable, continue home meds (6) HTN (hypertension) Conclusion/Plan: stable, continue home meds (7) Hyperlipidemia Conclusion/Plan: stable, continue home meds simvastatin (8) Hypothyroid Conclusion/Plan: TSH 2.46 normal, reconciliation of home meds (9) Depression Conclusion/Plan: stable, resume of home meds (10) DVT prophylaxis Conclusion/Plan: SCD with Lovenox Qualifiers: Pneumonia type: due to unspecified organism Laterality: bilateral Lung location: lower lobe of lung Qualified Code(s): J18.9 - Pneumonia, unspecified organism (11) dehydration resolved BUN and creatinine is closely pt's baseline. continue gently hydration. Qualifiers: Pneumonia type: due to unspecified organism Laterality: bilateral Lung location: lower lobe of lung Qualified Code(s): J18.9 - Pneumonia, unspecified organism (12) hypokalemia replacement of potassium, recheck morning lab Qualifiers: Pneumonia type: due to unspecified organism Laterality: bilateral Lung location: lower lobe of lung Qualified Code(s): J18.9 - Pneumonia, unspecified organism Qualifiers: Pneumonia type: due to unspecified organism Laterality: bilateral Lung location: lower lobe of lung Qualified Code(s): J18.9 - Pneumonia, unspecified organism (2) Fall Qualifiers: Encounter type: initial encounter Qualified Code(s): W19.XXXA - Unspecified fall, initial encounter
[2017-05-30] MEDS ORDERED: POTASSIUM CHLORIDE 20 MEQ TABLET PO SCH (10:00)
--- NOTE | 2017-05-30 10:03 | Discharge Plan ---
Discharge Plan Disposition: 01 Home, Self Care Condition: Stable Diet: Diabetic Activity Restrictions: Activity as Tolerated Shower Restrictions: No Driving Restrictions: No Additional Instructions or Follow Up instructions: May see PCP in one week, and psychiatrist as needed No Smoking: If you smoke, Please STOP! Call for help.
--- NOTE | 2017-05-30 10:31 | CT Preliminary Report ---
Exam: CT Chest W/O IMPRESSION: 1. Significant improvement in left upper lobe lingular and left lower lobe airspace and centrilobular opacities compared 05/25/2017 with near complete resolution. 2. No new focal abnormality. [facility] SITE ID: [id number]
--- NOTE | 2017-05-30 11:15 | CT Report ---
EXAM: CT CHEST WITHOUT CONTRAST EXAM DATE: 05/28/2017 06:01 PM. CLINICAL HISTORY: Shortness of breath. COMPARISONS: 05/25/2017. 05/21/2017. TECHNIQUE: Routine helical CT imaging was performed through the chest. IV contrast: None. Reconstruct ions: Coronal and sagittal. In accordance with CT protocol optimization, one or more of the following dose reduction techniques w ere utilized for this exam: automated exposure control, adjustment of mA and/or KV based on patient s ize, or use of iterative reconstructive technique. FINDINGS: Lungs/Pleura: Left upper lobe and left lower lobe airspace opacities have significantly improved and nearly resolved. Motion limits detail. No endobronchial obstruction or pneumothorax. No pleural effus ions. Mediastinum: Heart size is stable. Leads are seen in the right ventricle. Aortic calcifications are n oted. Detail is limited by motion. No enlarged mediastinal or hilar lymph nodes are seen. Small hiata l hernia. Bones: Degenerative changes of the thoracic spine. Subtle detail is limited due to motion. Visualized Abdomen: Included portions of the liver demonstrate calcified granuloma. Otherwise, the re mainder of the included portions of the spleen, adrenals, pancreas, and kidneys are unremarkable. Cli ps are seen from cholecystectomy. Other: None. IMPRESSION: 1. Significant improvement in left upper lobe, lingular and left lower lobe airspace and centrilobula r opacities compared to 05/25/2017 with near-complete resolution. 2. No new focal abnormality. [facility] Referring Provider Line: [phone] SITE ID: [id number]
[2017-05-30] MEDS: IBUPROFEN 800 MG TABLET PO PRN (15:36)
[2017-05-30] MEDS: BACLOFEN 10 MG TABLET PO PRN (17:29)
[2017-05-30] MEDS: oxyCODONE 5 MG TABLET PO PRN (19:04)
[2017-05-30] MEDS: ATORVASTATIN 10 MG TABLET PO SCH (21:17)
[2017-05-30] MEDS: AMOX/CLAV 500 MG/125 MG TABLET PO SCH (21:17)
[2017-05-31] MEDS: oxyCODONE 5 MG TABLET PO PRN ×2 (00:12→18:41)
[2017-05-31] MEDS: SODIUM CHLORIDE FLUSH 0.9% 10 ML SYRINGE IVP SCH ×3 (06:39→20:30)
[2017-05-31] MEDS: LEVOTHYROXINE 75 MCG TABLET PO SCH (06:39)
[2017-05-31] MEDS: SODIUM CHLORIDE FLUSH 0.9% 10 ML SYRINGE IVP PRN (06:39)
[2017-05-31 06:53] LABS: BASOPHILS # (AUTO) 0.2 10^3/uL (0.0-0.1); BASOPHILS % (AUTO) 2.7 %; EOSINOPHILS # (AUTO) 0.2 10^3/uL (0.0-0.7); EOSINOPHILS % (AUTO) 3.9 %; HGB - HEMOGLOBIN 10.8 g/dL (12.0-16.0); LYMPHOCYTES # (AUTO) 1.7 10^3/uL (1.5-3.5); LYMPHOCYTES % (AUTO) 28.4 %; MEAN CORPUSCULAR HEMOGLOBIN 30.7 pg (27.0-31.0); MEAN CORPUSCULAR HGB CONC 32.6 g/dL (32.0-36.0); MEAN CORPUSCULAR VOLUME 93.9 fL (81.0-99.0); MEAN PLATELET VOLUME 9.2 fL (7.9-10.8); MONOCYTES # (AUTO) 0.5 10^3/uL (0.0-1.0); MONOCYTES % (AUTO) 8.3 %; NEUTROPHILS # (AUTO) 3.5 10^3/uL (1.5-6.6); NEUTROPHILS % (AUTO) 56.7 %; RED BLOOD COUNT 3.51 10^6/uL (4.20-5.40); RED CELL DISTRIBUTION WIDTH 13.9 % (12.0-15.0); UNCORRECTED WHITE BLOOD COUNT 6.2 x10^3/uL; WHITE BLOOD COUNT 6.2 x10^3/uL (4.8-10.8)
[2017-05-31 07:08] LABS: ALBUMIN/GLOBULIN RATIO 1.2 (1.0-2.2); BILIRUBIN,TOTAL 0.7 mg/dL (0.2-1.0); CALCIUM 7.9 mg/dL (8.5-10.3); CREATININE 0.7 mg/dL (0.4-1.0); POTASSIUM 3.5 mmol/L (3.5-5.0); TOTAL PROTEIN 5.2 g/dL (6.7-8.2)
[2017-05-31] MEDS: SODIUM CHLORIDE 0.9% 1,000 ML IV SCH ×2 (08:25→22:15)
[2017-05-31] MEDS: INSULIN ASPART 300 UNIT/3 ML PEN SUBQ SCH ×4 (09:41→22:05)
[2017-05-31] MEDS: FUROSEMIDE 40 MG TABLET PO SCH (09:58)
[2017-05-31] MEDS: DEXTROAMPHETAMINE PO SCH ×2 (09:58→19:42)
[2017-05-31] MEDS: AMOX/CLAV 500 MG/125 MG TABLET PO SCH ×2 (09:58→20:29)
[2017-05-31] MEDS: CITALOPRAM 10 MG TABLET PO SCH (09:58)
[2017-05-31] MEDS: AMPHETAMINE PO SCH ×2 (09:58→19:42)
[2017-05-31] MEDS: FLUTICASONE NASAL SPRAY NAS SCH (09:58)
[2017-05-31] MEDS: POTASSIUM CHLORIDE 20 MEQ TABLET PO SCH (09:58)
[2017-05-31] MEDS: OXYBUTYNIN 5MG TABLET PO SCH ×2 (09:58→20:29)
[2017-05-31] MEDS: LISINOPRIL 5 MG TABLET PO SCH (09:59)
[2017-05-31] MEDS: SENNA 8.6 MG TABLET PO SCH (09:59)
[2017-05-31] MEDS: POLYETHYLENE GLYCOL 3350 17 GM PACKET PO SCH (09:59)
[2017-05-31] MEDS: FAMOTIDINE 20 MG TABLET PO SCH (09:59)
[2017-05-31] MEDS: DOCUSATE SODIUM 250 MG CAPSULE PO SCH (09:59)
[2017-05-31] MEDS: ENOXAPARIN 40 MG/0.4 ML SYRINGE SUBQ SCH (09:59)
[2017-05-31] MEDS: IBUPROFEN 800 MG TABLET PO PRN (10:20)
[2017-05-31] MEDS: PRENATAL VITAMIN TABLET PO SCH (11:53)
--- NOTE | 2017-05-31 16:08 | PROVIDER PROGRESS NOTE ---
Assessment/Plan - Problem List (1) Pneumonia Qualifiers: Pneumonia type: due to unspecified organism Laterality: bilateral Lung location: lower lobe of lung Qualified Code(s): J18.9 - Pneumonia, unspecified organism Assessment/Plan: PT is doing well on current antibiotics Anticipate she will complete prior to discharge Feeling better (2) Visual hallucinations Assessment/Plan: Seem to have improved PT had reported seeing people and objects that were not present. Suspect this is related to infection PT will need SNF placement. If improved enough could go home with home health and family (3) CVA (cerebral vascular accident) Assessment/Plan: PT with HX of CVA She has some right facial and neck sensations. She states this is not same as her prior CVA but feels odd. Possible TIA. May also be fatigue related to illness in area of prior stroke residual Will Continue to monitor. (4) Diabetes mellitus type 2 with complications, uncontrolled Qualifiers: Diabetes mellitus exterminator helper insulin use: without exterminator helper use Qualified Code(s): E11.8 - Type 2 diabetes mellitus with unspecified complications; E11.65 - Type 2 diabetes mellitus with hyperglycemia Assessment/Plan: Controlled on current regimen. No changes today - Current Meds Current Meds: Current Medications Generic Name Dose Route Start Last Admin Trade Name Freq PRN Reason Stop Dose Admin Amoxicillin/Clavulanate Potassium 1 tab 05/30/17 21:00 05/31/17 09:58 Augmentin 500/125 PO 1 tab BID DEDRICK Administration Atorvastatin Calcium 5 mg 05/26/17 21:00 05/30/17 21:17 Lipitor PO 5 mg QPM DEDRICK Administration Baclofen 20 mg 05/26/17 08:39 05/30/17 17:29 Lioresal PO 20 mg QID PRN Administration Spasms Citalopram Hydrobromide 20 mg 05/26/17 09:00 05/31/17 09:58 Celexa PO 20 mg DAILY DEDRICK Administration Diphenhydramine HCl 25 mg 05/26/17 08:39 05/28/17 03:19 Benadryl PO 25 mg QID PRN Administration Allergy Symptoms Docusate Sodium 250 - 500 mg 05/26/17 21:00 05/31/17 09:59 Colace 250mg Capsule PO Not Given DAILY DEDRICK Enoxaparin Sodium 40 mg 05/26/17 09:00 05/31/17 09:59 Lovenox SUBQ 40 mg DAILY DEDRICK Administration Famotidine 20 mg 05/26/17 09:00 05/31/17 09:59 Pepcid PO 20 mg DAILY DEDRICK Administration Fluticasone Propionate 1 sprays 05/26/17 09:00 05/31/17 09:58 Flonase RADHA 2 sprays DAILY DEDRICK Administration Furosemide 40 mg 05/26/17 09:00 05/31/17 09:58 Lasix PO 40 mg DAILY DEDRICK Administration Heparin Sodium (Beef Lung) 30 - 50 unit 05/25/17 22:00 05/31/17 12:01 IVP 06/24/17 21:09 Not Given Q8HR DEDRICK Sodium Chloride 1,000 mls @ 75 mls/hr 05/30/17 10:00 05/31/17 08:25 Normal Saline 0.9% IV 75 mls/hr .[id number] DEDRICK Administration Ibuprofen 800 mg 05/26/17 08:39 05/31/17 10:20 Motrin PO 800 mg TID PRN Administration PAIN Insulin Aspart 1 - 5 unit 05/25/17 17:00 05/31/17 11:57 Novolog SUBQ 2 unit 0800,1200,1700,2100 DEDRICK Administration Protocol Levothyroxine Sodium 75 mcg 05/26/17 09:00 05/31/17 06:39 Synthroid PO 75 mcg QDAC DEDRICK Administration Lisinopril 10 mg 05/26/17 09:00 05/31/17 09:59 Zestril PO 10 mg DAILY DEDRICK Administration Ondansetron HCl 4 mg 05/25/17 16:40 05/31/17 08:25 Zofran Inj IVP 4 mg Q6HR PRN Administration Nausea / Vomiting Oxybutynin Chloride 5 mg 05/26/17 09:00 05/31/17 09:58 Ditropan PO 5 mg BID DEDRICK Administration Oxycodone HCl 20 mg 05/26/17 08:39 05/31/17 00:12 Roxicodone PO 20 mg Q4H PRN Administration PAIN Dextroamphetamine/ 1 each 05/26/17 17:00 05/31/17 09:58 Amphetamine [ PO 1 each Dextroamp-Amphetamin BIDWM DEDRICK Administration ] 30 Mg Tab Polyethylene Glycol 17 gm 05/26/17 09:00 05/31/17 09:59 Miralax PO Not Given DAILY DEDRICK Potassium Chloride 20 meq 05/26/17 09:00 05/31/17 09:58 K-Dur PO 20 meq DAILYWM DEDRICK Administration Multivit/Folic Acid/Iron 1 tab 05/31/17 11:00 05/31/17 11:53 Trinatal Rx 1 PO 1 tab DAILYWM DEDRICK Administration Senna 8.6 - 17.2 mg 05/26/17 21:00 05/31/17 09:59 Senokot PO 8.6 mg DAILY DEDRICK Administration Sodium Chloride 10 ml 05/25/17 16:40 05/31/17 06:39 Normal Saline Flush 0.9% IVP 10 ml PRN PRN Administration NEEDED PER PROVIDER ORDERS Sodium Chloride 10 ml 05/25/17 22:00 05/31/17 12:01 Normal Saline Flush 0.9% IVP Not Given Q8HR DEDRICK - Lab Result Fish Bone Diagrams: 05/31/17 06:30 05/31/17 06:30 - Additional Planning Condition/Complexity: Stable My Orders: My Active Orders 05/31/17 11:00 Vitamin [Trinatal Rx 1] 1 tab PO DAILYWM 05/31/17 Lunch Dysphagia Mechanically Altered Diet [DIET] Plan Discussed with:: Patient Time Spent: 15-30 minutes Subjective - Subjective Patient Reports: Feeling Better, Other (facial sensation of fullness nad numness ) Nursing Reports: Confused (seem improved from yesterday), Other (Expressive aphasia has improved) Objective Vital Signs: Vital Signs - 24 hr 05/31/17 05/31/17 05/31/17 00:00 07:46 15:45 Temperature 36.5 C 36.4 C L 36.5 C Heart Rate [ 67 60 60 Brachial] Respiratory 16 18 18 Rate Blood Pressure 121/71 132/61 H 122/70 [Left Brachial artery] O2 Saturation 99 97 100 Oxygen O2 Source Room air I&O (Last 24 Hrs): Intake and Output Totals x24h 05/29/17 05/30/17 05/31/17 23:59 23:59 23:59 Intake Total 2495 4316 1488 Balance 2495 4316 1488 General: Alert, Oriented x3, No acute distress HEENT: Atraumatic, PERRLA, EOMI Neck: No JVD Neuro: Alert, Focal Deficits (Chronic from prior CVA), Speech Slurred (Improved) Cardiovascular: Regular rate, Other (2/6 AROLDO) Respiratory: Chest non-tender, No respiratory distress, Rales (right base) Extremities: No edema Skin: No rashes, No breakdown, No significant lesion - Results Results: Laboratory Results WBC 6.2 x10^3/uL (4.8-10.8) 05/31/17 06:30 RBC 3.51 10^6/uL (4.20-5.40) L 05/31/17 06:30 Hgb 10.8 g/dL (12.0-16.0) L 05/31/17 06:30 Hct 33.0 % (37.0-47.0) L 05/31/17 06:30 MCV 93.9 fL (81.0-99.0) 05/31/17 06:30 MCH 30.7 pg (27.0-31.0) 05/31/17 06:30 MCHC 32.6 g/dL (32.0-36.0) 05/31/17 06:30 RDW 13.9 % (12.0-15.0) 05/31/17 06:30 Plt Count 224 10^3/uL (130-450) 05/31/17 06:30 MPV 9.2 fL (7.9-10.8) 05/31/17 06:30 Neut # 3.5 10^3/uL (1.5-6.6) 05/31/17 06:30 Lymph # 1.7 10^3/uL (1.5-3.5) 05/31/17 06:30 [place] # 0.5 10^3/uL (0.0-1.0) 05/31/17 06:30 Eos # 0.2 10^3/uL (0.0-0.7) 05/31/17 06:30 Baso # 0.2 10^3/uL (0.0-0.1) H 05/31/17 06:30 Absolute Nucleated RBC 0.00 x10^3/uL 05/31/17 06:30 Nucleated RBCs 0.0 /100WBC 05/31/17 06:30 Sodium 140 mmol/L (135-145) 05/31/17 06:30 Potassium 3.5 mmol/L (3.5-5.0) 05/31/17 06:30 Chloride 108 mmol/L (101-111) 05/31/17 06:30 Carbon Dioxide 28 mmol/L (21-32) 05/31/17 06:30 Anion Gap 4.0 (6-13) L 05/31/17 06:30 BUN 12 mg/dL (6-20) 05/31/17 06:30 Creatinine 0.7 mg/dL (0.4-1.0) 05/31/17 06:30 Estimated GFR (MDRD) 84 (>89) L 05/31/17 06:30 Glucose 137 mg/dL (70-100) H 05/31/17 06:30 POC Whole Bld Glucose 197 mg/dL (70 - 100) H 05/31/17 11:52 Glycated Hemoglobin 6.8 % (4.6-6.2) H 05/25/17 11:01 Estim Average Glucose 148 (70-100) H 05/25/17 11:01 Calcium 7.9 mg/dL (8.5-10.3) L 05/31/17 06:30 Magnesium 2.0 mg/dL (1.7-2.8) 05/30/17 07:38 Total Bilirubin 0.7 mg/dL (0.2-1.0) 05/31/17 06:30 AST 22 IU/L (10-42) 05/31/17 06:30 ALT 20 IU/L (10-60) 05/31/17 06:30 Alkaline Phosphatase 62 IU/L (42-121) 05/31/17 06:30 Total Protein 5.2 g/dL (6.7-8.2) L 05/31/17 06:30 Albumin 2.8 g/dL (3.2-5.5) L 05/31/17 06:30 Globulin 2.4 g/dL (2.1-4.2) 05/31/17 06:30 Albumin/Globulin Ratio 1.2 (1.0-2.2) 05/31/17 06:30 Lipase 19 U/L (22-51) L 05/25/17 11:01 TSH 2.46 uIU/mL (0.34-5.60) 05/26/17 06:15 Urine Color STRAW 05/25/17 11:40 Urine Clarity HAZY (CLEAR) 05/25/17 11:40 Urine pH 8.0 PH (5.0-7.5) H 05/25/17 11:40 Ur Specific [place] 1.015 (1.002-1.030) 05/25/17 11:40 Urine Protein NEGATIVE mg/dL (NEGATIVE) 05/25/17 11:40 Urine Glucose (UA) NEGATIVE mg/dL (NEGATIVE) 05/25/17 11:40 Urine Ketones NEGATIVE mg/dL (NEGATIVE) 05/25/17 11:40 Urine Occult Blood NEGATIVE (NEGATIVE) 05/25/17 11:40 Urine Nitrite NEGATIVE (NEGATIVE) 05/25/17 11:40 Urine Bilirubin NEGATIVE (NEGATIVE) 05/25/17 11:40 Urine Urobilinogen 0.2 (NORMAL) E.U./dL (NORMAL) 05/25/17 11:40 Ur Leukocyte Esterase NEGATIVE (NEGATIVE) 05/25/17 11:40 Urine RBC 0-5 /HPF (0-5) 05/25/17 11:40 Urine WBC 4-5 /HPF (0-5) 05/25/17 11:40 Ur Squamous Epith Cells MANY Squamous (<= Few) H 05/25/17 11:40 Urine Bacteria Few /HPF (None Seen) 05/25/17 11:40 Ur Microscopic Review INDICATED 05/25/17 11:40 Urine Culture Comments NOT INDICATED 05/25/17 11:40
[2017-05-31] MEDS: BACLOFEN 10 MG TABLET PO PRN (18:41)
[2017-05-31] MEDS ORDERED: CARBOXYMETHYLCELLULOSE OPHTH DROPS EACHEYE PRN (19:42)
[2017-05-31] MEDS: ATORVASTATIN 10 MG TABLET PO SCH (20:29)
[2017-06-01] MEDS: SODIUM CHLORIDE FLUSH 0.9% 10 ML SYRINGE IVP SCH ×3 (05:28→21:13)
[2017-06-01] MEDS: SODIUM CHLORIDE FLUSH 0.9% 10 ML SYRINGE IVP PRN (05:28)
[2017-06-01] MEDS: LEVOTHYROXINE 75 MCG TABLET PO SCH (06:21)
[2017-06-01 06:45] LABS: BASOPHILS # (AUTO) 0.1 10^3/uL (0.0-0.1); BASOPHILS % (AUTO) 1.9 %; EOSINOPHILS # (AUTO) 0.2 10^3/uL (0.0-0.7); EOSINOPHILS % (AUTO) 4.3 %; HCT - HEMATOCRIT 34.4 % (37.0-47.0); HGB - HEMOGLOBIN 11.3 g/dL (12.0-16.0); LYMPHOCYTES # (AUTO) 1.6 10^3/uL (1.5-3.5); MEAN CORPUSCULAR HGB CONC 32.8 g/dL (32.0-36.0); MEAN CORPUSCULAR VOLUME 94.4 fL (81.0-99.0); MEAN PLATELET VOLUME 9.7 fL (7.9-10.8); MONOCYTES # (AUTO) 0.4 10^3/uL (0.0-1.0); MONOCYTES % (AUTO) 7.1 %; NEUTROPHILS # (AUTO) 3.4 10^3/uL (1.5-6.6); NEUTROPHILS % (AUTO) 58.7 %; RED BLOOD COUNT 3.65 10^6/uL (4.20-5.40); UNCORRECTED WHITE BLOOD COUNT 5.7 x10^3/uL; WHITE BLOOD COUNT 5.7 x10^3/uL (4.8-10.8)
[2017-06-01 07:02] LABS: ALBUMIN/GLOBULIN RATIO 1.1 (1.0-2.2); BILIRUBIN,TOTAL 0.6 mg/dL (0.2-1.0); CALCIUM 8.1 mg/dL (8.5-10.3); CREATININE 0.5 mg/dL (0.4-1.0); POTASSIUM 3.8 mmol/L (3.5-5.0); TOTAL PROTEIN 5.3 g/dL (6.7-8.2)
[2017-06-01] MEDS: INSULIN ASPART 300 UNIT/3 ML PEN SUBQ SCH ×4 (07:45→21:12)
[2017-06-01] MEDS: POTASSIUM CHLORIDE 20 MEQ TABLET PO SCH (08:26)
[2017-06-01] MEDS: CITALOPRAM 10 MG TABLET PO SCH (08:27)
[2017-06-01] MEDS: DEXTROAMPHETAMINE PO SCH ×2 (08:27→16:30)
[2017-06-01] MEDS: AMPHETAMINE PO SCH ×2 (08:27→16:30)
[2017-06-01] MEDS: DOCUSATE SODIUM 250 MG CAPSULE PO SCH (08:28)
[2017-06-01] MEDS: FUROSEMIDE 40 MG TABLET PO SCH (08:28)
[2017-06-01] MEDS: oxyCODONE 5 MG TABLET PO PRN ×2 (08:28→16:23)
[2017-06-01] MEDS: PRENATAL VITAMIN TABLET PO SCH (08:28)
[2017-06-01] MEDS: LISINOPRIL 5 MG TABLET PO SCH (08:29)
[2017-06-01] MEDS: OXYBUTYNIN 5MG TABLET PO SCH ×2 (08:29→21:12)
[2017-06-01] MEDS: ENOXAPARIN 40 MG/0.4 ML SYRINGE SUBQ SCH (08:43)
[2017-06-01] MEDS: AMOX/CLAV 500 MG/125 MG TABLET PO SCH ×2 (08:44→21:12)
[2017-06-01] MEDS: FLUTICASONE NASAL SPRAY NAS SCH (08:44)
[2017-06-01] MEDS: FAMOTIDINE 20 MG TABLET PO SCH (08:44)
[2017-06-01] MEDS: SENNA 8.6 MG TABLET PO SCH (08:45)
[2017-06-01] MEDS: POLYETHYLENE GLYCOL 3350 17 GM PACKET PO SCH (08:45)
--- NOTE | 2017-06-01 11:28 | PROVIDER PROGRESS NOTE ---
Assessment/Plan - Problem List (1) Pneumonia Qualifiers: Pneumonia type: due to unspecified organism Laterality: bilateral Lung location: lower lobe of lung Qualified Code(s): J18.9 - Pneumonia, unspecified organism Assessment/Plan: Pt is feeling much better. Will discharge when placement is available. Antibiotics will complete prior to discharge (2) CVA (cerebral vascular accident) Assessment/Plan: No longer complaining of odd sensation in her face and neck Possible TIA No new complaints today Will monitor for changes Unable to perform MRI due to PPM (3) Diabetes mellitus type 2 with complications, uncontrolled Qualifiers: Diabetes mellitus joint terminal attack controller insulin use: without intermediate use Qualified Code(s): E11.8 - Type 2 diabetes mellitus with unspecified complications; E11.65 - Type 2 diabetes mellitus with hyperglycemia Assessment/Plan: Doing well on current medications Pt should follow up with PCP after discharge as directed (4) Hypertension, benign Assessment/Plan: Controlled No changes today (5) Delirium due to another medical condition, acute, hyperactive Assessment/Plan: Visual hallucinations were present Secondary to medications: Levaquin Resolved with cessation of medication No further issues during hospitalization No further workup indicated - Current Meds Current Meds: Current Medications Generic Name Dose Route Start Last Admin Trade Name Freq PRN Reason Stop Dose Admin Amoxicillin/Clavulanate Potassium 1 tab 05/30/17 21:00 06/01/17 08:44 Augmentin 500/125 PO 1 tab BID DEDRICK Administration Atorvastatin Calcium 5 mg 05/26/17 21:00 05/31/17 20:29 Lipitor PO 5 mg QPM DEDRICK Administration Baclofen 20 mg 05/26/17 08:39 05/31/17 18:41 Lioresal PO 20 mg QID PRN Administration Spasms Citalopram Hydrobromide 20 mg 05/26/17 09:00 06/01/17 08:27 Celexa PO 20 mg DAILY DEDRICK Administration Diphenhydramine HCl 25 mg 05/26/17 08:39 05/28/17 03:19 Benadryl PO 25 mg QID PRN Administration Allergy Symptoms Docusate Sodium 250 - 500 mg 05/26/17 21:00 06/01/17 08:28 Colace 250mg Capsule PO 250 mg DAILY DEDRICK Administration Enoxaparin Sodium 40 mg 05/26/17 09:00 06/01/17 08:43 Lovenox SUBQ 40 mg DAILY DEDRICK Administration Famotidine 20 mg 05/26/17 09:00 06/01/17 08:44 Pepcid PO 20 mg DAILY DEDRICK Administration Fluticasone Propionate 1 sprays 05/26/17 09:00 06/01/17 08:44 Flonase RADHA 2 sprays DAILY DEDRICK Administration Furosemide 40 mg 05/26/17 09:00 06/01/17 08:28 Lasix PO 40 mg DAILY DEDRICK Administration Heparin Sodium (Beef Lung) 30 - 50 unit 05/25/17 22:00 06/01/17 05:27 IVP 06/24/17 21:09 Not Given Q8HR DEDRICK Sodium Chloride 1,000 mls @ 75 mls/hr 05/30/17 10:00 05/31/17 22:15 Normal Saline 0.9% IV 75 mls/hr .[id number] DEDRICK Administration Ibuprofen 800 mg 05/26/17 08:39 05/31/17 10:20 Motrin PO 800 mg TID PRN Administration PAIN Insulin Aspart 1 - 5 unit 05/25/17 17:00 06/01/17 11:16 Novolog SUBQ 2 unit 0800,1200,1700,2100 DEDRICK Administration Protocol Levothyroxine Sodium 75 mcg 05/26/17 09:00 06/01/17 06:21 Synthroid PO 75 mcg QDAC DEDRICK Administration Lisinopril 10 mg 05/26/17 09:00 06/01/17 08:29 Zestril PO 10 mg DAILY DEDRICK Administration Ondansetron HCl 4 mg 05/25/17 16:40 05/31/17 08:25 Zofran Inj IVP 4 mg Q6HR PRN Administration Nausea / Vomiting Oxybutynin Chloride 5 mg 05/26/17 09:00 06/01/17 08:29 Ditropan PO 5 mg BID DEDRICK Administration Oxycodone HCl 20 mg 05/26/17 08:39 06/01/17 08:28 Roxicodone PO 20 mg Q4H PRN Administration PAIN Dextroamphetamine/ 1 each 05/26/17 17:00 06/01/17 08:27 Amphetamine [ PO 1 each Dextroamp-Amphetamin BIDWM DEDRICK Administration ] 30 Mg Tab Polyethylene Glycol 17 gm 05/26/17 09:00 06/01/17 08:45 Miralax PO 17 gm DAILY DEDRICK Administration Potassium Chloride 20 meq 05/26/17 09:00 06/01/17 08:26 K-Dur PO 20 meq DAILYWM DEDRICK Administration Multivit/Folic Acid/Iron 1 tab 05/31/17 11:00 06/01/17 08:28 Trinatal Rx 1 PO 1 tab DAILYWM DEDRICK Administration Senna 8.6 - 17.2 mg 05/26/17 21:00 06/01/17 08:45 Senokot PO 8.6 mg DAILY DEDRICK Administration Sodium Chloride 10 ml 05/25/17 16:40 06/01/17 05:28 Normal Saline Flush 0.9% IVP 10 ml PRN PRN Administration NEEDED PER PROVIDER ORDERS Sodium Chloride 10 ml 05/25/17 22:00 06/01/17 05:28 Normal Saline Flush 0.9% IVP 20 ml Q8HR DEDRICK Administration - Lab Result Fish Bone Diagrams: 06/01/17 05:36 06/01/17 05:36 - Diagnostic Imaging Results Diagnostic Imaging Results: Final report reviewed - Additional Planning Condition/Complexity: Stable My Orders: My Active Orders 05/31/17 11:00 Vitamin [Trinatal Rx 1] 1 tab PO DAILYWM 05/31/17 Lunch Dysphagia Mechanically Altered Diet [DIET] Plan Discussed with:: Patient Time Spent: 15-30 minutes Subjective - Subjective Patient Reports: Feeling Better (PT is feeling back to her baseline. Shas no further reports of hallucinations. She has no reports of fever, chills, pain or dyspnea.) Nursing Reports: No Complaints Objective Vital Signs: Vital Signs - 24 hr 05/31/17 06/01/17 06/01/17 15:45 00:00 07:21 Temperature 36.5 C 36.4 C L 36.5 C Heart Rate [ 60 61 60 Brachial] Respiratory 18 16 16 Rate Blood Pressure 122/70 118/60 149/64 H [Left Brachial artery] O2 Saturation 100 99 93 Oxygen O2 Source Room air I&O (Last 24 Hrs): Intake and Output Totals x24h 05/30/17 05/31/17 06/01/17 23:59 23:59 23:59 Intake Total 4316 2983 1006 Balance 4316 2983 1006 General: Alert, Oriented x3 HEENT: PERRLA, EOMI Neck: No JVD Neuro: Alert, Focal Deficits (Secondary to prior CVA. No new Sx present) Cardiovascular: Regular rate (2/6 AROLDO heard best at LUSB without radiation to carotids) Respiratory: No respiratory distress, Breath sounds nml Abdomen: Soft Extremities: No edema Skin: No rashes, No significant lesion - Results Results: Laboratory Results WBC 5.7 x10^3/uL (4.8-10.8) 06/01/17 05:36 RBC 3.65 10^6/uL (4.20-5.40) L 06/01/17 05:36 Hgb 11.3 g/dL (12.0-16.0) L 06/01/17 05:36 Hct 34.4 % (37.0-47.0) L 06/01/17 05:36 MCV 94.4 fL (81.0-99.0) 06/01/17 05:36 MCH 31.0 pg (27.0-31.0) 06/01/17 05:36 MCHC 32.8 g/dL (32.0-36.0) 06/01/17 05:36 RDW 14.0 % (12.0-15.0) 06/01/17 05:36 Plt Count 209 10^3/uL (130-450) 06/01/17 05:36 MPV 9.7 fL (7.9-10.8) 06/01/17 05:36 Neut # 3.4 10^3/uL (1.5-6.6) 06/01/17 05:36 Lymph # 1.6 10^3/uL (1.5-3.5) 06/01/17 05:36 [place] # 0.4 10^3/uL (0.0-1.0) 06/01/17 05:36 Eos # 0.2 10^3/uL (0.0-0.7) 06/01/17 05:36 Baso # 0.1 10^3/uL (0.0-0.1) 06/01/17 05:36 Absolute Nucleated RBC 0.00 x10^3/uL 06/01/17 05:36 Nucleated RBCs 0.0 /100WBC 06/01/17 05:36 Sodium 142 mmol/L (135-145) 06/01/17 05:36 Potassium 3.8 mmol/L (3.5-5.0) 06/01/17 05:36 Chloride 107 mmol/L (101-111) 06/01/17 05:36 Carbon Dioxide 30 mmol/L (21-32) 06/01/17 05:36 Anion Gap 5.0 (6-13) L 06/01/17 05:36 BUN 10 mg/dL (6-20) 06/01/17 05:36 Creatinine 0.5 mg/dL (0.4-1.0) 06/01/17 05:36 Estimated GFR (MDRD) 124 (>89) 06/01/17 05:36 Glucose 126 mg/dL (70-100) H 06/01/17 05:36 POC Whole Bld Glucose 211 mg/dL (70 - 100) H 06/01/17 11:00 Glycated Hemoglobin 6.8 % (4.6-6.2) H 05/25/17 11:01 Estim Average Glucose 148 (70-100) H 05/25/17 11:01 Calcium 8.1 mg/dL (8.5-10.3) L 06/01/17 05:36 Magnesium 2.0 mg/dL (1.7-2.8) 05/30/17 07:38 Total Bilirubin 0.6 mg/dL (0.2-1.0) 06/01/17 05:36 AST 21 IU/L (10-42) 06/01/17 05:36 ALT 19 IU/L (10-60) 06/01/17 05:36 Alkaline Phosphatase 73 IU/L (42-121) 06/01/17 05:36 Total Protein 5.3 g/dL (6.7-8.2) L 06/01/17 05:36 Albumin 2.8 g/dL (3.2-5.5) L 06/01/17 05:36 Globulin 2.5 g/dL (2.1-4.2) 06/01/17 05:36 Albumin/Globulin Ratio 1.1 (1.0-2.2) 06/01/17 05:36 Lipase 19 U/L (22-51) L 05/25/17 11:01 TSH 2.46 uIU/mL (0.34-5.60) 05/26/17 06:15 Urine Color STRAW 05/25/17 11:40 Urine Clarity HAZY (CLEAR) 05/25/17 11:40 Urine pH 8.0 PH (5.0-7.5) H 05/25/17 11:40 Ur Specific [place] 1.015 (1.002-1.030) 05/25/17 11:40 Urine Protein NEGATIVE mg/dL (NEGATIVE) 05/25/17 11:40 Urine Glucose (UA) NEGATIVE mg/dL (NEGATIVE) 05/25/17 11:40 Urine Ketones NEGATIVE mg/dL (NEGATIVE) 05/25/17 11:40 Urine Occult Blood NEGATIVE (NEGATIVE) 05/25/17 11:40 Urine Nitrite NEGATIVE (NEGATIVE) 05/25/17 11:40 Urine Bilirubin NEGATIVE (NEGATIVE) 05/25/17 11:40 Urine Urobilinogen 0.2 (NORMAL) E.U./dL (NORMAL) 05/25/17 11:40 Ur Leukocyte Esterase NEGATIVE (NEGATIVE) 05/25/17 11:40 Urine RBC 0-5 /HPF (0-5) 05/25/17 11:40 Urine WBC 4-5 /HPF (0-5) 05/25/17 11:40 Ur Squamous Epith Cells MANY Squamous (<= Few) H 05/25/17 11:40 Urine Bacteria Few /HPF (None Seen) 05/25/17 11:40 Ur Microscopic Review INDICATED 05/25/17 11:40 Urine Culture Comments NOT INDICATED 05/25/17 11:40
[2017-06-01] MEDS: SODIUM CHLORIDE 0.9% 1,000 ML IV SCH (11:34)
[2017-06-01] MEDS: BACLOFEN 10 MG TABLET PO PRN (16:27)
[2017-06-01] MEDS: ATORVASTATIN 10 MG TABLET PO SCH (21:12)
[2017-06-02] MEDS: SODIUM CHLORIDE 0.9% 1,000 ML IV SCH (01:17)
[2017-06-02] MEDS: SODIUM CHLORIDE FLUSH 0.9% 10 ML SYRINGE IVP SCH ×3 (05:08→21:25)
[2017-06-02 05:57] LABS: BASOPHILS # (AUTO) 0.1 10^3/uL (0.0-0.1); BASOPHILS % (AUTO) 1.1 %; EOSINOPHILS # (AUTO) 0.2 10^3/uL (0.0-0.7); HCT - HEMATOCRIT 32.1 % (37.0-47.0); HGB - HEMOGLOBIN 10.6 g/dL (12.0-16.0); LYMPHOCYTES # (AUTO) 1.8 10^3/uL (1.5-3.5); LYMPHOCYTES % (AUTO) 29.5 %; MEAN CORPUSCULAR HEMOGLOBIN 31.1 pg (27.0-31.0); MEAN CORPUSCULAR HGB CONC 32.9 g/dL (32.0-36.0); MEAN CORPUSCULAR VOLUME 94.5 fL (81.0-99.0); MEAN PLATELET VOLUME 9.9 fL (7.9-10.8); MONOCYTES # (AUTO) 0.4 10^3/uL (0.0-1.0); MONOCYTES % (AUTO) 7.1 %; NEUTROPHILS # (AUTO) 3.7 10^3/uL (1.5-6.6); NEUTROPHILS % (AUTO) 59.3 %; NUCLEATED RED BLOOD CELLS AUTO 0.1 /100WBC; RED CELL DISTRIBUTION WIDTH 14.3 % (12.0-15.0); UNCORRECTED WHITE BLOOD COUNT 6.2 x10^3/uL; WHITE BLOOD COUNT 6.2 x10^3/uL (4.8-10.8)
[2017-06-02] MEDS: LEVOTHYROXINE 75 MCG TABLET PO SCH (06:23)
[2017-06-02] MEDS: INSULIN ASPART 300 UNIT/3 ML PEN SUBQ SCH ×4 (07:36→20:15)
[2017-06-02 08:16] LABS: BILIRUBIN,TOTAL 0.5 mg/dL (0.2-1.0); CALCIUM 8.4 mg/dL (8.5-10.3); CREATININE 0.5 mg/dL (0.4-1.0); POTASSIUM 4.2 mmol/L (3.5-5.0); TOTAL PROTEIN 5.6 g/dL (6.7-8.2)
[2017-06-02] MEDS: DEXTROAMPHETAMINE PO SCH ×2 (08:29→16:55)
[2017-06-02] MEDS: AMPHETAMINE PO SCH ×2 (08:29→16:55)
[2017-06-02] MEDS: PRENATAL VITAMIN TABLET PO SCH (08:30)
[2017-06-02] MEDS: POTASSIUM CHLORIDE 20 MEQ TABLET PO SCH (08:30)
[2017-06-02] MEDS: AMOX/CLAV 500 MG/125 MG TABLET PO SCH ×2 (08:30→20:25)
[2017-06-02] MEDS: FUROSEMIDE 40 MG TABLET PO SCH (08:31)
[2017-06-02] MEDS: DOCUSATE SODIUM 250 MG CAPSULE PO SCH (08:31)
[2017-06-02] MEDS: FAMOTIDINE 20 MG TABLET PO SCH (08:31)
[2017-06-02] MEDS: CITALOPRAM 10 MG TABLET PO SCH (08:31)
[2017-06-02] MEDS: ENOXAPARIN 40 MG/0.4 ML SYRINGE SUBQ SCH (08:31)
[2017-06-02] MEDS: LISINOPRIL 5 MG TABLET PO SCH (08:32)
[2017-06-02] MEDS: POLYETHYLENE GLYCOL 3350 17 GM PACKET PO SCH (08:32)
[2017-06-02] MEDS: OXYBUTYNIN 5MG TABLET PO SCH ×2 (08:32→20:25)
[2017-06-02] MEDS: SENNA 8.6 MG TABLET PO SCH (08:32)
[2017-06-02] MEDS: SODIUM CHLORIDE FLUSH 0.9% 10 ML SYRINGE IVP PRN ×4 (08:33→13:16)
[2017-06-02] MEDS: FLUTICASONE NASAL SPRAY NAS SCH (08:33)
--- NOTE | 2017-06-02 10:35 | PROVIDER PROGRESS NOTE ---
Assessment/Plan - Problem List (1) Pneumonia Qualifiers: Pneumonia type: due to unspecified organism Laterality: bilateral Lung location: lower lobe of lung Qualified Code(s): J18.9 - Pneumonia, unspecified organism Assessment/Plan: Qualifiers: Pneumonia type: due to unspecified organism Laterality: bilateral Lung location: lower lobe of lung Qualified Code(s): J18.9 - Pneumonia, unspecified organism Assessment/Plan: Pt is feeling much better. Will discharge when placement is available. (2) CVA (cerebral vascular accident) Assessment/Plan: No longer complaining of odd sensation in her face and neck Possible TIA Unable to perform MRI due to PPM No new complaints today Continue to monitor (3) Diabetes mellitus type 2 with complications, uncontrolled Qualifiers: Diabetes mellitus jail insulin use: without jail use Qualified Code(s): E11.8 - Type 2 diabetes mellitus with unspecified complications; E11.65 - Type 2 diabetes mellitus with hyperglycemia Assessment/Plan: Doing well on current medications Pt should follow up with PCP after discharge as directed (4) Hypertension, benign Assessment/Plan: Controlled on current medications (5) Delirium due to another medical condition, acute, hyperactive Assessment/Plan: Resolved Visual hallucinations were present Secondary to medications: Levaquin Resolved with cessation of medication No further issues during hospitalization No further workup indicated Cellulitis Assessment/plan RLE cellulitis Associated with injury suspected No elevation in WBC and afebrile Increased redness to area with discomfort Will byron restrepo today and continue Augmentin (3) Diabetes mellitus type 2 with complications, uncontrolled Qualifiers: Diabetes mellitus jail insulin use: without jail use Qualified Code(s): E11.8 - Type 2 diabetes mellitus with unspecified complications; E11.65 - Type 2 diabetes mellitus with hyperglycemia - Current Meds Current Meds: Current Medications Generic Name Dose Route Start Last Admin Trade Name Freq PRN Reason Stop Dose Admin Amoxicillin/Clavulanate Potassium 1 tab 05/30/17 21:00 06/02/17 08:30 Augmentin 500/125 PO 1 tab BID DEDRICK Administration Atorvastatin Calcium 5 mg 05/26/17 21:00 06/01/17 21:12 Lipitor PO 5 mg QPM DEDRICK Administration Baclofen 20 mg 05/26/17 08:39 06/01/17 16:27 Lioresal PO 20 mg QID PRN Administration Spasms Citalopram Hydrobromide 20 mg 05/26/17 09:00 06/02/17 08:31 Celexa PO 20 mg DAILY DEDRICK Administration Diphenhydramine HCl 25 mg 05/26/17 08:39 05/28/17 03:19 Benadryl PO 25 mg QID PRN Administration Allergy Symptoms Docusate Sodium 250 - 500 mg 05/26/17 21:00 06/02/17 08:31 Colace 250mg Capsule PO 250 mg DAILY DEDRICK Administration Enoxaparin Sodium 40 mg 05/26/17 09:00 06/02/17 08:31 Lovenox SUBQ 40 mg DAILY DEDRICK Administration Famotidine 20 mg 05/26/17 09:00 06/02/17 08:31 Pepcid PO 20 mg DAILY DEDRICK Administration Fluticasone Propionate 1 sprays 05/26/17 09:00 06/02/17 08:33 Flonase RADHA 1 sprays DAILY [facility] Administration Furosemide 40 mg 05/26/17 09:00 06/02/17 08:31 Lasix PO 40 mg DAILY [facility] Administration Heparin Sodium (Beef Lung) 30 - 50 unit 05/25/17 22:00 06/02/17 05:08 IVP 06/24/17 21:09 Not Given Q8HR [facility] Ibuprofen 800 mg 05/26/17 08:39 05/31/17 10:20 Motrin PO 800 mg TID PRN Administration PAIN Insulin Aspart 1 - 5 unit 05/25/17 17:00 06/02/17 07:36 Novolog SUBQ Not Given 0800,1200,1700,2100 [facility] Protocol Levothyroxine Sodium 75 mcg 05/26/17 09:00 06/02/17 06:23 Synthroid PO 75 mcg QDAC DEDRICK Administration Lisinopril 10 mg 05/26/17 09:00 06/02/17 08:32 Zestril PO 10 mg DAILY D[facility]ICK Administration Ondansetron HCl 4 mg 05/25/17 16:40 05/31/17 08:25 Zofran Inj IVP 4 mg Q6HR PRN Administration Nausea / Vomiting Oxybutynin Chloride 5 mg 05/26/17 09:00 06/02/17 08:32 Ditropan PO 5 mg BID DEDRICK Administration Oxycodone HCl 20 mg 05/26/17 08:39 06/01/17 16:23 Roxicodone PO 20 mg Q4H PRN Administration PAIN Dextroamphetamine/ 1 each 05/26/17 17:00 06/02/17 08:29 Amphetamine [ PO 1 each Dextroamp-Amphetamin BIDWM DEDRICK Administration ] 30 Mg Tab Polyethylene Glycol 17 gm 05/26/17 09:00 06/02/17 08:32 Miralax PO 17 gm DAILY [facility] Administration Potassium Chloride 20 meq 05/26/17 09:00 06/02/17 08:30 K-Dur PO 20 meq DAILYWM DEDRICK Administration Multivit/Folic Acid/Iron 1 tab 05/31/17 11:00 06/02/17 08:30 Trinatal Rx 1 PO 1 tab DAILYWM DEDRICK Administration Senna 8.6 - 17.2 mg 05/26/17 21:00 06/02/17 08:32 Senokot PO 8.6 mg DAILY [facility] Administration Sodium Chloride 10 ml 05/25/17 16:40 06/02/17 08:33 Normal Saline Flush 0.9% IVP 60 ml PRN PRN Administration NEEDED PER PROVIDER ORDERS Sodium Chloride 10 ml 05/25/17 22:00 06/02/17 05:08 Normal Saline Flush 0.9% IVP Not Given Q8HR DEDRICK - Lab Result Fish Bone Diagrams: 06/02/17 05:00 06/02/17 07:30 Subjective - Subjective Patient Reports: Feeling Better (Feels better from standpoint of breathinig. No more hallucinations. No facial sensations.), Other (Concerned with increased redness adn pain around site of iinjury to lower leg) Nursing Reports: No Complaints Objective Vital Signs: Vital Signs - 24 hr 06/01/17 06/01/17 06/02/17 13:56 15:30 00:00 Temperature 36.6 C 36.5 C Heart Rate [ 89 60 61 Brachial] Respiratory 12 16 Rate Blood Pressure 137/72 H 107/57 L 100/64 [Left Brachial artery] O2 Saturation 96 96 06/02/17 07:15 Temperature 36.6 C Heart Rate [ 60 Brachial] Respiratory 16 Rate Blood Pressure 145/74 H [Left Brachial artery] O2 Saturation 95 Oxygen O2 Source Room air I&O (Last 24 Hrs): Intake and Output Totals x24h 05/31/17 06/01/17 06/02/17 23:59 23:59 23:59 Intake Total 2983 7375 917 Balance 2983 2759 91 General: Alert, Oriented x3 HEENT: PERRLA, EOMI Neck: No JVD Neuro: Alert, Other (Chronic neuro changes from prior CVA. No new changes) Cardiovascular: Regular rate, Other (AROLDO) Respiratory: No respiratory distress Abdomen: Normal bowel sounds Extremities: Other (Errythema at site of injury more pronounced today) Skin: No rashes - Results Results: Laboratory Results WBC 6.2 x10^3/uL (4.8-10.8) 06/02/17 05:00 RBC 3.40 10^6/uL (4.20-5.40) L 06/02/17 05:00 Hgb 10.6 g/dL (12.0-16.0) L 06/02/17 05:00 Hct 32.1 % (37.0-47.0) L 06/02/17 05:00 MCV 94.5 fL (81.0-99.0) 06/02/17 05:00 MCH 31.1 pg (27.0-31.0) H 06/02/17 05:00 MCHC 32.9 g/dL (32.0-36.0) 06/02/17 05:00 RDW 14.3 % (12.0-15.0) 06/02/17 05:00 Plt Count 188 10^3/uL (130-450) 06/02/17 05:00 MPV 9.9 fL (7.9-10.8) 06/02/17 05:00 Neut # 3.7 10^3/uL (1.5-6.6) 06/02/17 05:00 Lymph # 1.8 10^3/uL (1.5-3.5) 06/02/17 05:00 [place] # 0.4 10^3/uL (0.0-1.0) 06/02/17 05:00 Eos # 0.2 10^3/uL (0.0-0.7) 06/02/17 05:00 Baso # 0.1 10^3/uL (0.0-0.1) 06/02/17 05:00 Absolute Nucleated RBC 0.00 x10^3/uL 06/02/17 05:00 Nucleated RBCs 0.1 /100WBC 06/02/17 05:00 Sodium 140 mmol/L (135-145) 06/02/17 07:30 Potassium 4.2 mmol/L (3.5-5.0) 06/02/17 07:30 Chloride 104 mmol/L (101-111) 06/02/17 07:30 Carbon Dioxide 31 mmol/L (21-32) 06/02/17 07:30 Anion Gap 5.0 (6-13) L 06/02/17 07:30 BUN 12 mg/dL (6-20) 06/02/17 07:30 Creatinine 0.5 mg/dL (0.4-1.0) 06/02/17 07:30 Estimated GFR (MDRD) 124 (>89) 06/02/17 07:30 Glucose 148 mg/dL (70-100) H 06/02/17 07:30 POC Whole Bld Glucose 93 mg/dL (70 - 100) 06/02/17 07:14 Glycated Hemoglobin 6.8 % (4.6-6.2) H 05/25/17 11:01 Estim Average Glucose 148 (70-100) H 05/25/17 11:01 Calcium 8.4 mg/dL (8.5-10.3) L 06/02/17 07:30 Magnesium 2.0 mg/dL (1.7-2.8) 05/30/17 07:38 Total Bilirubin 0.5 mg/dL (0.2-1.0) 06/02/17 07:30 AST 22 IU/L (10-42) 06/02/17 07:30 ALT 18 IU/L (10-60) 06/02/17 07:30 Alkaline Phosphatase 70 IU/L (42-121) 06/02/17 07:30 Total Protein 5.6 g/dL (6.7-8.2) L 06/02/17 07:30 Albumin 2.8 g/dL (3.2-5.5) L 06/02/17 07:30 Globulin 2.8 g/dL (2.1-4.2) 06/02/17 07:30 Albumin/Globulin Ratio 1.0 (1.0-2.2) 06/02/17 07:30 Lipase 19 U/L (22-51) L 05/25/17 11:01 TSH 2.46 uIU/mL (0.34-5.60) 05/26/17 06:15 Urine Color STRAW 05/25/17 11:40 Urine Clarity HAZY (CLEAR) 05/25/17 11:40 Urine pH 8.0 PH (5.0-7.5) H 05/25/17 11:40 Ur Specific [place] 1.015 (1.002-1.030) 05/25/17 11:40 Urine Protein NEGATIVE mg/dL (NEGATIVE) 05/25/17 11:40 Urine Glucose (UA) NEGATIVE mg/dL (NEGATIVE) 05/25/17 11:40 Urine Ketones NEGATIVE mg/dL (NEGATIVE) 05/25/17 11:40 Urine Occult Blood NEGATIVE (NEGATIVE) 05/25/17 11:40 Urine Nitrite NEGATIVE (NEGATIVE) 05/25/17 11:40 Urine Bilirubin NEGATIVE (NEGATIVE) 05/25/17 11:40 Urine Urobilinogen 0.2 (NORMAL) E.U./dL (NORMAL) 05/25/17 11:40 Ur Leukocyte Esterase NEGATIVE (NEGATIVE) 05/25/17 11:40 Urine RBC 0-5 /HPF (0-5) 05/25/17 11:40 Urine WBC 4-5 /HPF (0-5) 05/25/17 11:40 Ur Squamous Epith Cells MANY Squamous (<= Few) H 05/25/17 11:40 Urine Bacteria Few /HPF (None Seen) 05/25/17 11:40 Ur Microscopic Review INDICATED 05/25/17 11:40 Urine Culture Comments NOT INDICATED 05/25/17 11:40
[2017-06-02] MEDS: cefTRIAXone 2 GM in SODIUM CHLORIDE 0.9% MINIBAG 100 ML IV SCH (11:24)
[2017-06-02] MEDS: BACLOFEN 10 MG TABLET PO PRN (11:44)
[2017-06-02] MEDS: oxyCODONE 5 MG TABLET PO PRN ×2 (15:23→20:32)
[2017-06-02] MEDS: ATORVASTATIN 10 MG TABLET PO SCH (20:25)
[2017-06-03] MEDS: oxyCODONE 5 MG TABLET PO PRN ×3 (03:03→20:40)
[2017-06-03] MEDS: SODIUM CHLORIDE FLUSH 0.9% 10 ML SYRINGE IVP SCH ×3 (06:07→20:40)
[2017-06-03] MEDS: LEVOTHYROXINE 75 MCG TABLET PO SCH (06:33)
[2017-06-03] MEDS: BACLOFEN 10 MG TABLET PO PRN ×2 (06:33→20:39)
[2017-06-03] MEDS ORDERED: MAGNESIUM HYDROXIDE 2,400 MG/30 ML UDC PO ONE (08:00)
[2017-06-03] MEDS: INSULIN ASPART 300 UNIT/3 ML PEN SUBQ SCH ×4 (08:17→20:40)
--- NOTE | 2017-06-03 09:07 | PROVIDER PROGRESS NOTE ---
Assessment/Plan - Problem List (1) Pneumonia Qualifiers: Pneumonia type: due to unspecified organism Laterality: bilateral Lung location: lower lobe of lung Qualified Code(s): J18.9 - Pneumonia, unspecified organism Assessment/Plan: Assessment/Plan: Pt is feeling much better. Will discharge when placement is available. Antibiotics near completion (2) CVA (cerebral vascular accident) Assessment/Plan: No new complaints Possible TIA Unable to perform MRI due to PPM No changes today (3) Diabetes mellitus type 2 with complications, uncontrolled Qualifiers: Diabetes mellitus [facility] insulin use: without [facility] use Qualified Code(s): E11.8 - Type 2 diabetes mellitus with unspecified complications; E11.65 - Type 2 diabetes mellitus with hyperglycemia Assessment/Plan: Doing well on current medications Pt should follow up with PCP after discharge as directed (4) Hypertension, benign Assessment/Plan: Controlled on current medications (5) Delirium due to another medical condition, acute, hyperactive Assessment/Plan: Resolved No recurrence over night Visual hallucinations were present Secondary to medications: Levaquin Resolved with cessation of medication No further issues during hospitalization No further workup indicated Cellulitis Assessment/plan RLE cellulitis Improved No elevation in WBC and afebrile Increased redness to area with discomfort Continue augmentin. additional gram Rocephin today (3) Diabetes mellitus type 2 with complications, uncontrolled Qualifiers: Diabetes mellitus [employer] term[employer] insulin use: without [employer] use Qualified Code(s): E11.8 - Type 2 diabetes mellitus with unspecified complications; E11.65 - Type 2 diabetes mellitus with hyperglycemia - Current Meds Current Meds: Current Medications Generic Name Dose Route Start Last Admin Trade Name Freq PRN Reason Stop Dose Admin Amoxicillin/Clavulanate Potassium 1 tab 05/30/17 21:00 06/02/17 20:25 Augmentin 500/125 PO 1 tab BID DEDRICK Administration Atorvastatin Calcium 5 mg 05/26/17 21:00 06/02/17 20:25 Lipitor PO 5 mg QPM DEDRICK Administration Baclofen 20 mg 05/26/17 08:39 06/03/17 06:33 Lioresal PO 20 mg QID PRN Administration Spasms Carboxymethylcellulose 1 drops 05/31/17 19:42 06/02/17 11:44 Refresh 1% Ophth Drops EACHEYE 1 drops PRN PRN Administration Dry Eye Citalopram Hydrobromide 20 mg 05/26/17 09:00 06/02/17 08:31 Celexa PO 20 mg DAILY DEDRICK Administration Diphenhydramine HCl 25 mg 05/26/17 08:39 05/28/17 03:19 Benadryl PO 25 mg QID PRN Administration Allergy Symptoms Docusate Sodium 250 - 500 mg 05/26/17 21:00 06/02/17 08:31 Colace 250mg Capsule PO 250 mg DAILY DEDRICK Administration Enoxaparin Sodium 40 mg 05/26/17 09:00 06/02/17 08:31 Lovenox SUBQ 40 mg DAILY DEDRICK Administration Famotidine 20 mg 05/26/17 09:00 06/02/17 08:31 Pepcid PO 20 mg DAILY DEDRICK Administration Fluticasone Propionate 1 sprays 05/26/17 09:00 06/02/17 08:33 Flonase RADHA 1 sprays DAILY [facility]ICK Administration Furosemide 40 mg 05/26/17 09:00 06/02/17 08:31 Lasix PO 40 mg DAILY [facility] Administration Heparin Sodium (Beef Lung) 30 - 50 unit 06/02/17 13:06 06/02/17 13:16 IVP 07/02/17 13:06 50 unit ONCE PRN Administration Port Protocol (<24 hours) Ceftriaxone Sodium 2 gm/ 100 mls @ 200 mls/hr 06/02/17 11:00 06/02/17 11:24 Sodium Chloride IV 200 mls/hr DAILY DEDRICK Administration Ibuprofen 800 mg 05/26/17 08:39 05/31/17 10:20 Motrin PO 800 mg TID PRN Administration PAIN Insulin Aspart 1 - 5 unit 05/25/17 17:00 06/03/17 08:17 Novolog SUBQ Not Given 0800,1200,1700,2100 [facility] Protocol Levothyroxine Sodium 75 mcg 05/26/17 09:00 06/03/17 06:33 Synthroid PO 75 mcg QDAC DEDRICK Administration Lisinopril 10 mg 05/26/17 09:00 06/02/17 08:32 Zestril PO 10 mg DAILY DEDRICK Administration Ondansetron HCl 4 mg 05/25/17 16:40 05/31/17 08:25 Zofran Inj IVP 4 mg Q6HR PRN Administration Nausea / Vomiting Oxybutynin Chloride 5 mg 05/26/17 09:00 06/02/17 20:25 Ditropan PO 5 mg BID DEDRICK Administration Oxycodone HCl 20 mg 05/26/17 08:39 06/03/17 03:03 Roxicodone PO 20 mg Q4H PRN Administration PAIN Dextroamphetamine/ 1 each 05/26/17 17:00 06/02/17 16:55 Amphetamine [ PO 1 each Dextroamp-Amphetamin BIDWM DEDRICK Administration ] 30 Mg Tab Polyethylene Glycol 17 gm 05/26/17 09:00 06/02/17 08:32 Miralax PO 17 gm DAILY DEDRICK Administration Potassium Chloride 20 meq 05/26/17 09:00 06/02/17 08:30 K-Dur PO 20 meq DAILYWM DEDRICK Administration Multivit/Folic Acid/Iron 1 tab 05/31/17 11:00 06/02/17 08:30 Trinatal Rx 1 PO 1 tab DAILYWM DEDRICK Administration Sodium Chloride 10 ml 05/25/17 16:40 06/02/17 13:16 Normal Saline Flush 0.9% IVP 10 ml PRN PRN Administration NEEDED PER PROVIDER ORDERS Sodium Chloride 10 ml 05/25/17 22:00 06/03/17 06:07 Normal Saline Flush 0.9% IVP Not Given Q8HR DEDRICK - Lab Result Fish Bone Diagrams: 06/02/17 05:00 06/02/17 07:30 - Additional Planning My Orders: My Active Orders 06/02/17 11:00 cefTRIAXone [Rocephin] 2 gm Sodium Chloride 0.9% Minibag [Normal Saline 0.9% Minibag] 100 ml IV DAILY 06/03/17 09:00 Senna [Senokot] 8.6 - 17.2 mg PO DAILY Plan Discussed with:: Patient Time Spent: Less than 15 minutes Subjective - Subjective Patient Reports: Feeling Better (PT feels good and is ready to leave hospital. She only complains of pain in RLE) Nursing Reports: No Complaints Objective Vital Signs: Vital Signs - 24 hr 06/02/17 06/02/17 06/03/17 15:15 23:50 08:26 Temperature 36.3 C L 36.5 C 36.6 C Heart Rate [ 65 62 62 Brachial] Respiratory 16 16 16 Rate Blood Pressure 116/77 107/45 L 124/55 L [Left Brachial artery] O2 Saturation 97 97 98 Oxygen O2 Source Room air I&O (Last 24 Hrs): Intake and Output Totals x24h 06/01/17 06/02/17 06/03/17 23:59 23:59 23:59 Intake Total 2757 1951 450 Balance 2757 1951 450 General: Alert, Oriented x3 HEENT: PERRLA, EOMI Neck: No JVD Neuro: Alert, Focal Deficits (Chronic), CN 2-12 Grossly Intact Cardiovascular: Regular rate, Other (AROLDO) Respiratory: No respiratory distress, Breath sounds nml Abdomen: Soft Extremities: No edema Skin: No significant lesion - Results Results: Laboratory Results WBC 6.2 x10^3/uL (4.8-10.8) 06/02/17 05:00 RBC 3.40 10^6/uL (4.20-5.40) L 06/02/17 05:00 Hgb 10.6 g/dL (12.0-16.0) L 06/02/17 05:00 Hct 32.1 % (37.0-47.0) L 06/02/17 05:00 MCV 94.5 fL (81.0-99.0) 06/02/17 05:00 MCH 31.1 pg (27.0-31.0) H 06/02/17 05:00 MCHC 32.9 g/dL (32.0-36.0) 06/02/17 05:00 RDW 14.3 % (12.0-15.0) 06/02/17 05:00 Plt Count 188 10^3/uL (130-450) 06/02/17 05:00 MPV 9.9 fL (7.9-10.8) 06/02/17 05:00 Neut # 3.7 10^3/uL (1.5-6.6) 06/02/17 05:00 Lymph # 1.8 10^3/uL (1.5-3.5) 06/02/17 05:00 [place] # 0.4 10^3/uL (0.0-1.0) 06/02/17 05:00 Eos # 0.2 10^3/uL (0.0-0.7) 06/02/17 05:00 Baso # 0.1 10^3/uL (0.0-0.1) 06/02/17 05:00 Absolute Nucleated RBC 0.00 x10^3/uL 06/02/17 05:00 Nucleated RBCs 0.1 /100WBC 06/02/17 05:00 Sodium 140 mmol/L (135-145) 06/02/17 07:30 Potassium 4.2 mmol/L (3.5-5.0) 06/02/17 07:30 Chloride 104 mmol/L (101-111) 06/02/17 07:30 Carbon Dioxide 31 mmol/L (21-32) 06/02/17 07:30 Anion Gap 5.0 (6-13) L 06/02/17 07:30 BUN 12 mg/dL (6-20) 06/02/17 07:30 Creatinine 0.5 mg/dL (0.4-1.0) 06/02/17 07:30 Estimated GFR (MDRD) 124 (>89) 06/02/17 07:30 Glucose 148 mg/dL (70-100) H 06/02/17 07:30 POC Whole Bld Glucose 114 mg/dL (70 - 100) H 06/03/17 07:21 Glycated Hemoglobin 6.8 % (4.6-6.2) H 05/25/17 11:01 Estim Average Glucose 148 (70-100) H 05/25/17 11:01 Calcium 8.4 mg/dL (8.5-10.3) L 06/02/17 07:30 Magnesium 2.0 mg/dL (1.7-2.8) 05/30/17 07:38 Total Bilirubin 0.5 mg/dL (0.2-1.0) 06/02/17 07:30 AST 22 IU/L (10-42) 06/02/17 07:30 ALT 18 IU/L (10-60) 06/02/17 07:30 Alkaline Phosphatase 70 IU/L (42-121) 06/02/17 07:30 Total Protein 5.6 g/dL (6.7-8.2) L 06/02/17 07:30 Albumin 2.8 g/dL (3.2-5.5) L 06/02/17 07:30 Globulin 2.8 g/dL (2.1-4.2) 06/02/17 07:30 Albumin/Globulin Ratio 1.0 (1.0-2.2) 06/02/17 07:30 Lipase 19 U/L (22-51) L 05/25/17 11:01 TSH 2.46 uIU/mL (0.34-5.60) 05/26/17 06:15 Urine Color STRAW 05/25/17 11:40 Urine Clarity HAZY (CLEAR) 05/25/17 11:40 Urine pH 8.0 PH (5.0-7.5) H 05/25/17 11:40 Ur Specific [place] 1.015 (1.002-1.030) 05/25/17 11:40 Urine Protein NEGATIVE mg/dL (NEGATIVE) 05/25/17 11:40 Urine Glucose (UA) NEGATIVE mg/dL (NEGATIVE) 05/25/17 11:40 Urine Ketones NEGATIVE mg/dL (NEGATIVE) 05/25/17 11:40 Urine Occult Blood NEGATIVE (NEGATIVE) 05/25/17 11:40 Urine Nitrite NEGATIVE (NEGATIVE) 05/25/17 11:40 Urine Bilirubin NEGATIVE (NEGATIVE) 05/25/17 11:40 Urine Urobilinogen 0.2 (NORMAL) E.U./dL (NORMAL) 05/25/17 11:40 Ur Leukocyte Esterase NEGATIVE (NEGATIVE) 05/25/17 11:40 Urine RBC 0-5 /HPF (0-5) 05/25/17 11:40 Urine WBC 4-5 /HPF (0-5) 05/25/17 11:40 Ur Squamous Epith Cells MANY Squamous (<= Few) H 05/25/17 11:40 Urine Bacteria Few /HPF (None Seen) 05/25/17 11:40 Ur Microscopic Review INDICATED 05/25/17 11:40 Urine Culture Comments NOT INDICATED 05/25/17 11:40
[2017-06-03] MEDS: LISINOPRIL 5 MG TABLET PO SCH (09:15)
[2017-06-03] MEDS: SENNA 8.6 MG TABLET PO SCH (09:20)
[2017-06-03] MEDS: FAMOTIDINE 20 MG TABLET PO SCH (09:20)
[2017-06-03] MEDS: FUROSEMIDE 40 MG TABLET PO SCH (09:21)
[2017-06-03] MEDS: CITALOPRAM 10 MG TABLET PO SCH (09:21)
[2017-06-03] MEDS: AMOX/CLAV 500 MG/125 MG TABLET PO SCH ×2 (09:22→20:49)
[2017-06-03] MEDS: AMPHETAMINE PO SCH ×2 (09:24→17:23)
[2017-06-03] MEDS: DEXTROAMPHETAMINE PO SCH ×2 (09:24→17:23)
[2017-06-03] MEDS: PRENATAL VITAMIN TABLET PO SCH (09:25)
[2017-06-03] MEDS: POTASSIUM CHLORIDE 20 MEQ TABLET PO SCH (09:25)
[2017-06-03] MEDS: DOCUSATE SODIUM 250 MG CAPSULE PO SCH (09:25)
[2017-06-03] MEDS: ENOXAPARIN 40 MG/0.4 ML SYRINGE SUBQ SCH (09:25)
[2017-06-03] MEDS: cefTRIAXone 2 GM in SODIUM CHLORIDE 0.9% MINIBAG 100 ML IV SCH (09:26)
[2017-06-03] MEDS: SODIUM CHLORIDE FLUSH 0.9% 10 ML SYRINGE IVP PRN (09:30)
[2017-06-03] MEDS: FLUTICASONE NASAL SPRAY NAS SCH (10:29)
[2017-06-03] MEDS: POLYETHYLENE GLYCOL 3350 17 GM PACKET PO SCH (10:30)
[2017-06-03] MEDS: OXYBUTYNIN 5MG TABLET PO SCH ×2 (10:30→20:40)
[2017-06-03] MEDS ORDERED: cefTRIAXone 1 GM in SODIUM CHLORIDE 0.9% MINIBAG 100 ML IV SCH (11:00)
--- NOTE | 2017-06-03 20:24 | XRAY Preliminary Report ---
Exam: XR Chest 1 View IMPRESSION: 1. There is cardiomegaly. 2. No evidence of consolidation or pneumothorax. 3. There is a moderate-sized hiatal hernia. [facility] SITE ID: [id number]
--- NOTE | 2017-06-03 20:27 | XRAY Report ---
EXAM: CHEST RADIOGRAPHY EXAM DATE: 06/03/2017 06:04 PM. CLINICAL HISTORY: Hypoxia. COMPARISON: 05/25/2017. TECHNIQUE: 1 view. FINDINGS: Lungs/Pleura: No focal opacities evident. No pleural effusion. No pneumothorax. Mediastinum: There is mild cardiomegaly. Other: Left subclavian dual-lead pacemaker is stable in position. Access right Port-A-Cath also stabl e in position. There is a moderate-sized hiatal hernia. IMPRESSION: 1. There is cardiomegaly. 2. No evidence of consolidation or pneumothorax. 3. There is a moderate-sized hiatal hernia. [facility] Referring Provider Line: [phone] SITE ID: [id number]
[2017-06-03] MEDS ORDERED: SODIUM CHLORIDE FLUSH 0.9% 10 ML SYRINGE IVP ONE (20:37)
[2017-06-03] MEDS: ATORVASTATIN 10 MG TABLET PO SCH (20:40)
[2017-06-03] MEDS ORDERED: LACTULOSE 10 GM /15 ML UDC PO ONE (20:55)
[2017-06-04] MEDS: SODIUM CHLORIDE FLUSH 0.9% 10 ML SYRINGE IVP SCH ×2 (05:38→13:02)
[2017-06-04] MEDS ORDERED: BISACODYL 10 MG SUPP PR ONE (06:21)
[2017-06-04] MEDS: LEVOTHYROXINE 75 MCG TABLET PO SCH (06:30)
[2017-06-04 08:02] VITALS: BP 134/56
[2017-06-04] MEDS: INSULIN ASPART 300 UNIT/3 ML PEN SUBQ SCH ×2 (09:15→11:40)
[2017-06-04] MEDS: ENOXAPARIN 40 MG/0.4 ML SYRINGE SUBQ SCH (09:43)
[2017-06-04] MEDS: CITALOPRAM 10 MG TABLET PO SCH (09:43)
[2017-06-04] MEDS: LISINOPRIL 5 MG TABLET PO SCH (09:44)
[2017-06-04] MEDS: AMOX/CLAV 500 MG/125 MG TABLET PO SCH (09:44)
[2017-06-04] MEDS: PRENATAL VITAMIN TABLET PO SCH (09:44)
[2017-06-04] MEDS: POTASSIUM CHLORIDE 20 MEQ TABLET PO SCH (09:44)
[2017-06-04] MEDS: DOCUSATE SODIUM 250 MG CAPSULE PO SCH (09:44)
[2017-06-04] MEDS: POLYETHYLENE GLYCOL 3350 17 GM PACKET PO SCH (09:45)
[2017-06-04] MEDS: OXYBUTYNIN 5MG TABLET PO SCH (09:45)
[2017-06-04] MEDS: FUROSEMIDE 40 MG TABLET PO SCH (09:45)
[2017-06-04] MEDS: SENNA 8.6 MG TABLET PO SCH (09:45)
[2017-06-04] MEDS: AMPHETAMINE PO SCH (09:45)
[2017-06-04] MEDS: DEXTROAMPHETAMINE PO SCH (09:45)
[2017-06-04] MEDS: FAMOTIDINE 20 MG TABLET PO SCH (09:45)
[2017-06-04] MEDS: oxyCODONE 5 MG TABLET PO PRN ×2 (09:58→14:14)
[2017-06-04] MEDS: FLUTICASONE NASAL SPRAY NAS SCH (10:12)
--- NOTE | 2017-06-04 12:36 | DISCHARGE SUMMARY ---
"Discharge Summary Admit Date: 05/26/17 Discharge Date: 06/04/17 Discharging Provider: WEBER Primary Care Provider: Javier Banks Code Status: Do Not Attempt Resuscitation Condition at Discharge: Stable Discharge Disposition: 03 SNF DC/Xfer Discharge Facility Name: [facility] - DIAGNOSES Admission Diagnoses: (1) Pneumonia (2) history of CVA (cerebral vascular accident) (3) Diabetes mellitus type 2 with complications, uncontrolled (4) Hypertension, benign (5) Delirium due to another medical condition, acute, hyperactive (6) Cellulitis Discharge Diagnoses with Status of Each Condition: (1) Pneumonia no evidence of consolidation, room air 100% (2) history of CVA (cerebral vascular accident) stable (3) Diabetes mellitus type 2 with complications, uncontrolled stable (4) Hypertension, benign controlled, stable (5) Delirium due to another medical condition, acute, hyperactive resolved (6) Cellulitis great improved, continued on antibiotics - HPI History of Present Illness: please refer from my HPI on 05/25/17 This is a 66-year-old female with significant past medical history of CHF, HTN, arrhythmia, CVA, DM2, GERD, hiatal hernia, chronic hearing loss, depression, anxiety, obsessive compulsive disorder, eczema, hemochromatosis, who present emergence department of [facility] for evaluation of fall, medical clearance for psychiatric evaluation of vision hallucination. Patient was discharged to her home from this facility three days for upper and lower extremities cellulitis and pneumonia. Patient report she has twice falls today morning at home after discharge from hospital. She tried to reach the thing then she trip and fell in the ground. She report some pain at her left knee and right hip which was resulted from the falls. She denies other pain or injury from the falls. She denies chest pain, shortness of breathing, cough, fever, chill. She denies headache, vision changing, dysuria, hematuria. There is no nausea, vomiting, diarrhea, abdominal pain. Patient was seen in this emergence room yesterday for evaluation of visual hallucinations. She was received one liter of NS on yesterday. Patient's image study on left knee, right hip and CT of head are without acute finding on today. CXR reveals increase in the patchy lobe air space disease bilaterally. Patient's vital signs are unremarkable, no fever, and room air with saturation of O2 98%. Lab test in ER today reveals unremarkable either, WBC 5, UA unremarkable. Patient is admitted in observation unit for evaluation of pneumonia and medical clearance for further psychiatric evaluation. - CONSULTS | PROCEDURES Procedures: no procedure - HOSPITAL COURSE Hospital Course: pt was admitted with pneumonia. Pt developed vision hallucination and delirium in the hospital. The delirium and vision hallucination were resolved in the hospital. The new CXR reveals no evidence of consolidation. Pt has chronic infection at her right lower extremity, continue to finish the antibiotics course. - ALLERGIES Allergies/Adverse Reactions: Allergies Allergy/AdvReac Type Severity Reaction Status Date / Time erythromycin lactobionate * Allergy Intermediate Emesis Verified 11/23/16 00:11 [From Erythrocin] imipramine HCl * Allergy Unknown bronchospas Verified 11/23/16 00:11 [From Tofranil] ms metformin Allergy Unknown emesis, Verified 11/23/16 00:11 dyspepsia nitrofurantoin Allergy Unknown nausea, Verified 11/23/16 00:11 [Nitrofurantoin] weakness, malaise Sulfa (Sulfonamide Allergy Unknown urticaria Verified 11/23/16 00:11 Antibiotics) - MEDICATIONS Home Medications: Ambulatory Orders Medication Instructions Recorded Confirmed Levothyroxine Sodium [Synthroid] 75 mcg PO QDAC 01/30/13 05/26/17 Citalopram [CeleXA] 20 mg PO DAILY 10/30/14 05/26/17 Simvastatin [Zocor] 5 mg PO QPM 10/30/14 05/26/17 Lisinopril 10 mg PO DAILY 06/28/15 05/26/17 Baclofen 20 mg PO QID PRN 11/23/16 05/26/17 Furosemide [Lasix] 40 mg PO DAILY 11/23/16 05/26/17 Oxybutynin [Ditropan] 5 mg PO BID 11/23/16 05/26/17 Potassium Chloride [Klor-Con M20] 20 meq PO DAILYWM 11/23/16 05/26/17 Chlorpheniramine Maleate 4 mg PO QID PRN 05/19/17 05/26/17 [Chlorhist] Dextroamphetamine/Amphetamine 30 mg PO BID 05/19/17 05/26/17 [Dextroamp-Amphetamin 30 mg Tab] Docusate Sodium 100 mg PO BID PRN 05/19/17 05/26/17 diphenhydrAMINE [Benadryl] 25 mg PO QID PRN 05/19/17 05/26/17 Fluticasone [Flonase] 1 sprays RADHA DAILY 05/26/17 05/26/17 Ibuprofen [Ibuprofen] 800 mg PO TID PRN 05/26/17 05/26/17 Nitroglycerin [Nitrostat] 0.4 mg PO Q5M PRN 05/26/17 05/26/17 oxyCODONE [Roxicodone] 20 mg PO Q4H PRN MDD 120MG 05/26/17 05/26/17 - PHYSICAL EXAM AT DISCHARGE General Appearance: positive: No acute distress, Alert. negative: Lethargic Eyes Bilateral: positive: Normal inspection, PERRL, No lid inflammation, Conjunctivae nml ENT: positive: ENT inspection nml, Pharynx nml, No signs of dehydration. negative: Purulent nasal drainage, Pharyngeal erythema Neck: positive: Nml inspection, Thyroid nml, No JVD, Trachea midline. negative : Thyromegaly, Lymphadenopathy (R), Lymphadenopathy (L), Stiff neck, Carotid bruit, Swelling/bruising Respiratory: positive: Chest non-tender, No respiratory distress, Breath sounds nml. negative: Wheezes, Rales, Rhonchi Cardiovascular: positive: Regular rate & rhythm, Systolic murmur, Diastolic murmur. negative: Tachycardia, Bradycardia Peripheral Pulses: positive: 2+ Abdomen: positive: Non-tender, Nml bowel sounds, No distention. negative: Tenderness, Guarding, Rebound Back: positive: Nml inspection. negative: CVA tenderness (R), CVA tenderness (L ) Skin: positive: Warm, Dry, Skin rash (mild erthema at right lower extremity). negative: Cyanosis, Diaphoresis, Pallor Extremities: positive: Non-tender. negative: Calf tenderness, Mary Alice's sign/ cords Neurologic/Psychiatric: positive: Oriented x3, Mood/affect nml. negative: Facial droop, Slurred/abnml speech, Depressed mood/affect - LABS Result Diagrams: 06/02/17 05:00 06/02/17 07:30 - FOLLOW UP Follow Up: may see PCP in one week, continue PT/OT/ST. - TIME SPENT Time Spent in Discharge (Minutes): 40"
== END 2017-06-04 14:32 | DRG 194 ==
LOC: EDUNIT# → ED 09:55 → OBS 16:40 → OBSVTOIN 05-26 16:19 → MS2 05-26 16:46
PROVIDERS: ADMIT Nurse Practitioner Gerontology; ATTEND Nurse Practitioner Gerontology
DX: J18.9 Pneumonia, unspecified organism (principal); I69.351 Hemiplegia and hemiparesis following cerebral infarction affecting right dominant side; S50.312A Abrasion of left elbow, initial encounter; L03.115 Cellulitis of right lower limb; E86.0 Dehydration; R44.1 Visual hallucinations; T37.8X5A Adverse effect of other specified systemic anti-infectives and antiparasitics, initial encounter; E11.9 Type 2 diabetes mellitus without complications; F90.9 Attention-deficit hyperactivity disorder, unspecified type; E87.6 Hypokalemia; M25.562 Pain in left knee; M25.551 Pain in right hip; W01.0XXA Fall on same level from slipping, tripping and stumbling without subsequent striking against object, initial encounter; Y92.009 Unspecified place in unspecified non-institutional (private) residence as the place of occurrence of the external cause; I69.392 Facial weakness following cerebral infarction; I69.398 Other sequelae of cerebral infarction; R20.8 Other disturbances of skin sensation; R41.0 Disorientation, unspecified; E78.5 Hyperlipidemia, unspecified; I11.0 Hypertensive heart disease with heart failure; E11.65 Type 2 diabetes mellitus with hyperglycemia; Z79.899 Other long term (current) drug therapy; I50.9 Heart failure, unspecified; Z87.891 Personal history of nicotine dependence; E87.5 Hyperkalemia; E03.9 Hypothyroidism, unspecified; F32.9 Major depressive disorder, single episode, unspecified; I49.9 Cardiac arrhythmia, unspecified; K21.9 Gastro-esophageal reflux disease without esophagitis; F41.9 Anxiety disorder, unspecified; F42.9 Obsessive-compulsive disorder, unspecified; Z66 Do not resuscitate; Z86.2 Personal history of diseases of the blood and blood-forming organs and certain disorders involving the immune mechanism; Z95.0 Presence of cardiac pacemaker; Z91.81 History of falling
CPT/HCPCS: 36415; 70450; 71010; 71020; 71250; 80053; 81001; 81003; 83036; 83690; 83735; 84443; 85025; 87086; 96372; 99283; 99284; 99285